=== PATIENT | female | born 1945 | race Caucasian/White ===

== ENCOUNTER 2017-02-06 15:26 | Inpatient (IN) | payer MEDICARE ==
--- NOTE | 2017-02-06 16:55 | ER Document Report ---
ED General - General Chief Complaint: Weakness Stated Complaint: WEAKNESS Mode of Arrival: Ambulatory Information source: Patient Notes: 71-year-old female presents with complaints of one week duration of productive cough shortness of breath. Patient denies any fevers or chills admits thick brownish sputum. Patient also noted to have urinary incontinence for the past week. Patient admits to shortness breath - HPI Onset: Last week Onset/Duration: Persistent Quality of pain: No pain Severity: Mild Pain Level: Denies Associated symptoms: Productive cough, Shortness of breath Exacerbated by: Denies Relieved by: Denies Similar symptoms previously: No Recently seen / treated by doctor: No - Related Data Allergies/Adverse Reactions: aspirin [Aspirin] Allergy (Verified 04/27/14 15:52) diphenhydramine HCl [From Benadryl] Allergy (Verified 04/27/14 15:52) ibuprofen [Ibuprofen] Allergy (Verified 04/27/14 15:52) Past Medical History - Social History Smoking Status: Never Smoker Cigarette use (# per day): No Chew tobacco use (# tins/day): No Smoking Education Provided: No Family History: Reviewed & Not Pertinent - Past Medical History Cardiac Medical History: Reports: Hx Heart Attack, Hx Hypercholesterolemia, Hx Hypertension Denies: Hx Heart Murmur Pulmonary Medical History: Reports: Hx Asthma, Hx COPD, Hx Pneumonia Denies: Hx Respiratory Failure, Hx Sleep Apnea, Hx Tuberculosis Malignancy Medical History: Denies: Hx Lung Cancer Psychiatric Medical History: Reports: Hx Depression, Hx Schizophrenia Past Surgical History: Reports: Hx Cardiac Catheterization - Stent x2. Denies: Hx Pacemaker - Immunizations Hx Diphtheria, Pertussis, Tetanus Vaccination: No Hx Pneumococcal Vaccination: 08/06/13 Review of Systems - Review of Systems Notes: ALL OTHER SYSTEMS REVIEWED AND NEGATIVE. Dictation was performed using [employer] voice recognition software PHYSICAL EXAMINATION: GENERAL: Well-appearing, well-nourished and in no acute distress. HEAD: Atraumatic, normocephalic. EYES: Pupils equal round and reactive to light, extraocular movements intact, conjunctiva are normal. ENT: Nares patent, oropharynx clear without exudates. Moist mucous membranes. NECK: Normal range of motion, supple without lymphadenopathy LUNGS: Rhonchorous breath sounds all throughout no respiratory distress patient is on 2 L nasal cannula HEART: Regular rate and rhythm without murmurs ABDOMEN: Soft, nontender, nondistended abdomen. No guarding, no rebound. No masses appreciated. Female : deferred Musculoskeletal: Normal range of motion, no pitting or edema. No cyanosis. NEUROLOGICAL: Cranial nerves grossly intact. Normal speech, normal gait. Normal sensory, motor exams PSYCH: Normal mood, normal affect. SKIN: Warm, Dry, normal turgor, no rashes or lesions noted. Physical Exam - Vital signs Vitals: Temp Pulse Resp BP Pulse Ox 97.7 F 94 20 107/50 L 94 02/06/17 15:47 02/06/17 15:47 02/06/17 15:47 02/06/17 15:47 02/06/17 15:47 Course - Re-evaluation Re-evalutation: 02/06/17 17:01 Patient has obvious pneumonia given productive cough. She was on antibiotics lab work imaging are pending at this time. Patient admission will depend on ambulation 02/06/17 18:03 Patient ambulated just to the bathroom satting 87%, I would admit her to hospital service for IV antibiotics and oxygenation - Vital Signs Vital signs: Temp Pulse Resp BP Pulse Ox 97.7 F 94 20 107/50 L 94 02/06/17 15:47 02/06/17 15:47 02/06/17 15:47 02/06/17 15:47 02/06/17 15:47 - Laboratory Result Diagrams: 02/06/17 16:40 02/06/17 16:40 Laboratory results interpreted by me: 02/06/17 02/06/17 02/06/17 16:40 16:40 16:40 Seg Neutrophils % 80.1 H Lymphocytes % 9.8 L Sodium 135.7 L Carbon Dioxide 21 L BUN 21 H Creatinine 1.39 H Est GFR ( Amer) 45 L Est GFR (Non-Af Amer) 37 L Glucose 134 H Calcium 10.5 H Creatine Kinase 315 H NT-Pro-B Natriuret Pep 930 H - Diagnostic Test Radiology reviewed: Image reviewed, Reports reviewed - EKG Interpretation by Me EKG shows normal: Sinus rhythm, Closplint, Intervals, QRS Complexes Critical Care Note - Critical Care Note Total time excluding time spent on procedures (mins): 34 Comments: 34 minutes of critical care time spent in direct contact evaluating and reevaluating the patient, treating symptoms, reviewing labs and studies and speaking with family and consultants excluding any procedures Discharge - Discharge Clinical Impression: Hypoxemia, Weakness Pneumonia Qualifiers: Pneumonia type: due to unspecified organism Laterality: right Lung location: upper lobe of lung Qualified Code(s): J18.1 - Lobar pneumonia, unspecified organism Condition: Fair Disposition: ADMITTED INPATIENT Admitting Provider: Hospitalist Unit Admitted: Telemetry
[2017-02-06 17:10] LABS: BASOPHILS % (AUTO) 0.3 % (0-2); HEMATOCRIT 39.5 % (36.0-47.0); HEMOGLOBIN 13.3 g/dL (12.0-15.5); HGB HCT DIFFERENCE 0.4; LYMPHOCYTES % (AUTO) 9.8 % (13-45); MEAN CORPUSCULAR HEMOGLOBIN 29.5 pg (27.0-33.4); MEAN CORPUSCULAR HGB CONC 33.6 g/dL (32.0-36.0); MEAN CORPUSCULAR VOLUME 88 fl (80-97); MONOCYTES % (AUTO) 9.8 % (3-13); RED CELL DISTRIBUTION WIDTH 13.9 % (11.5-14.0); SEGMENTED NEUTROPHILS % (AUTO) 80.1 % (42-78)
--- NOTE | 2017-02-06 17:20 | EKG REPORT ---
SEVERITY:- ABNORMAL ECG - SINUS RHYTHM LEFT ANTERIOR FASCICULAR BLOCK BORDERLINE T ABNORMALITIES, ANT-LAT LEADS : Confirmed by: Jacqui Ji MD 06-Feb-2017 17:19:44
[2017-02-06 17:27] LABS: ALANINE AMINOTRANSFERASE 32 U/L (9-52); ALBUMIN 4.1 g/dL (3.5-5.0); ALKALINE PHOSPHATASE 85 U/L (38-126); ANION GAP 13 (5-19); ASPARTATE AMINO TRANSFERASE 32 U/L (14-36); BILIRUBIN,TOTAL 0.6 mg/dL (0.2-1.3); BLOOD UREA NITROGEN 21 mg/dL (7-20); CALCIUM 10.5 mg/dL (8.4-10.2); CARBON DIOXIDE 21 mmol/L (22-30); CHLORIDE 102 mmol/L (98-107); CREATINE KINASE 315 U/L (30-135); CREATININE RESULT 1.39 mg/dL (0.52-1.25); GLUCOSE 134 mg/dL (75-110); POTASSIUM 3.9 mmol/L (3.6-5.0); SODIUM 135.7 mmol/L (137-145); TOTAL PROTEIN 6.9 g/dL (6.3-8.2)
[2017-02-06 17:39] LABS: CREATINE KINASE MB 0.97 ng/mL (<4.55)
[2017-02-06 17:40] LABS: TROPONIN I < 0.012 ng/mL
[2017-02-06] MEDS ORDERED: LEVOFLOXACIN 750 MG/D5W RTU 150 ML IV ONE (18:02)
[2017-02-06] MEDS ORDERED: NORMAL SALINE 1000 ML 1,000 ML IV PRN (19:11)
--- NOTE | 2017-02-06 19:25 | PDOC H&P ---
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 Was brought to the ED with increasing cough shortness of breath Upon evaluation in the ED she was found to be hypoxemic She was coughing sputum greenish thick She was subsequently admitted under hospitalist service with a diagnosis of pneumonia Past Medical History Cardiac Medical History: Reports: Myocardial Infarction, Hyperlipidema, Hypertension, Other - Chronic systolic CHF with an EF of 30% Denies: Heart Murmur Pulmonary Medical History: Reports: Asthma, Chronic Obstructive Pulmonary Disease (COPD), Pneumonia Denies: Respiratory Failure, Sleep Apnea, Tuberculosis Malignancy Medical History: Denies: Lung Cancer Psychiatric Medical History: Reports: Depression Past Surgical History Past Surgical History: Reports: Cardiac Catheterization - Stent x2 Denies: Pacemaker Social History Smoking Status: Never Smoker Frequency of Alcohol Use: None Hx Recreational Drug Use: No Hx Prescription Drug Abuse: No - Advance Directive Resuscitation Status: Full Code Surrogate healthcare decision maker:: Her daughter Carolann Family History Family History: Reviewed & Not Pertinent Parental Family History Reviewed: Yes - mother had CVA hypertension Children Family History Reviewed: Yes Sibling(s) Family History Reviewed.: Yes Medication/Allergy Home Medications: Albuterol Sulfate [Albuterol Sulfate 2.5mg/3 mL] 1 vial IH Q4HP PRN 02/06/17 Albuterol Sulfate [Ventolin Hfa] 2 puff IH Q4HP PRN 02/06/17 Aspirin [Aspirin 81 mg Chewable Tablet] 81 mg PO DAILY 02/06/17 Citalopram Hydrobromide [Celexa 10 mg Tablet] 10 mg PO DAILY 02/06/17 Lisinopril/Hydrochlorothiazide [Lisinopril-Hctz 20-12.5 mg Tab] 1 each PO DAILY 02/06/17 Potassium Chloride [K-Tab ER] 8 meq PO DAILY 02/06/17 Pravastatin Sodium [Pravachol] 20 mg PO QHS 02/06/17 Ranitidine HCl [Zantac] 150 mg PO DAILY 02/06/17 Tiotropium [place] [Spiriva Handihaler 5 Cap/Kit (18 Mcg/Cap)] 1 cap IH DAILY Allergies/Adverse Reactions: aspirin [Aspirin] Allergy (Verified 04/27/14 15:52) diphenhydramine HCl [From Benadryl] Allergy (Verified 04/27/14 15:52) ibuprofen [Ibuprofen] Allergy (Verified 04/27/14 15:52) Review of Systems Constitutional: ABSENT: chills, fever(s), headache(s), weight gain, weight loss Eyes: ABSENT: visual disturbances Ears: ABSENT: hearing changes Cardiovascular: PRESENT: chest pain - Stating her left breast hurts. ABSENT: dyspnea on exertion, edema, orthropnea, palpitations Respiratory: PRESENT: cough, dyspnea, sputum. ABSENT: hemoptysis Gastrointestinal: ABSENT: abdominal pain, constipation, diarrhea, hematemesis, hematochezia, nausea, vomiting Genitourinary: ABSENT: dysuria, hematuria Musculoskeletal: ABSENT: joint swelling Integumentary: ABSENT: rash, wounds Neurological: PRESENT: abnormal gait, weakness, other - Unsteady gait. ABSENT: abnormal speech, confusion, dizziness, focal weakness, syncope Psychiatric: ABSENT: anxiety, depression, homidical ideation, suicidal ideation Endocrine: ABSENT: cold intolerance, heat intolerance, polydipsia, polyuria Hematologic/Lymphatic: ABSENT: easy bleeding, easy bruising Physical Exam Vital Signs: Temp Pulse Resp BP Pulse Ox 97.7 F 94 20 107/50 L 94 02/06/17 15:47 02/06/17 15:47 02/06/17 15:47 02/06/17 15:47 02/06/17 15:47 General appearance: PRESENT: no acute distress, well-developed, well-nourished Head exam: PRESENT: atraumatic, normocephalic Eye exam: PRESENT: conjunctiva pink, EOMI, PERRLA. ABSENT: scleral icterus Ear exam: PRESENT: normal external ear exam Mouth exam: PRESENT: moist, tongue midline Neck exam: ABSENT: carotid bruit, JVD, lymphadenopathy, thyromegaly Respiratory exam: PRESENT: wheezes. ABSENT: rales, rhonchi, tachypnea Cardiovascular exam: PRESENT: RRR. ABSENT: diastolic murmur, rubs, systolic murmur Pulses: PRESENT: normal dorsalis pedis pul Vascular exam: PRESENT: normal capillary refill GI/Abdominal exam: PRESENT: normal bowel sounds, soft. ABSENT: distended, guarding, mass, organolmegaly, rebound, tenderness Rectal exam: PRESENT: deferred Extremities exam: PRESENT: full ROM. ABSENT: calf tenderness, clubbing, pedal edema Neurological exam: PRESENT: alert, awake, oriented to person, oriented to place , oriented to time, oriented to situation, CN II-XII grossly intact. ABSENT: motor sensory deficit Psychiatric exam: PRESENT: appropriate affect, normal mood. ABSENT: homicidal ideation, suicidal ideation Skin exam: PRESENT: dry, intact, warm. ABSENT: cyanosis, rash Results Laboratory Results: Labs- All tests 24 hr 02/06/17 02/06/17 02/06/17 16:40 16:40 16:40 WBC 10.0 RBC 4.50 Hgb 13.3 Hct 39.5 MCV 88 MCH 29.5 MCHC 33.6 RDW 13.9 Plt Count 189 Seg Neutrophils % 80.1 H Lymphocytes % 9.8 L Monocytes % 9.8 Eosinophils % 0.0 Basophils % 0.3 Absolute Neutrophils 8.0 Absolute Lymphocytes 1.0 Absolute Monocytes 1.0 Absolute Eosinophils 0.0 Absolute Basophils 0.0 Sodium 135.7 L Potassium 3.9 Chloride 102 Carbon Dioxide 21 L Anion Gap 13 BUN 21 H Creatinine 1.39 H Est GFR ( Amer) 45 L Est GFR (Non-Af Amer) 37 L Glucose 134 H Calcium 10.5 H Total Bilirubin 0.6 Direct Bilirubin 0.0 AST 32 ALT 32 Alkaline Phosphatase 85 Creatine Kinase 315 H CK-MB (CK-2) 0.97 Troponin I < 0.012 NT-Pro-B Natriuret Pep 930 H Total Protein 6.9 Albumin 4.1 Impressions: Chest X-Ray 02/06/17 15:58 IMPRESSION: NO ACUTE RADIOGRAPHIC FINDING IN THE CHEST. Assessment & Plan - Diagnosis (2) Coronary artery disease Qualifiers: Coronary Disease-Associated Artery/Lesion type: [place] artery Associated angina: angina presence unspecified Is this a current diagnosis for this admission?: Yes (3) Hypoxemia Is this a current diagnosis for this admission?: Yes (4) Pneumonia Qualifiers: Pneumonia type: due to unspecified organism Laterality: right Lung location: upper lobe of lung Qualified Code(s): J18.1 - Lobar pneumonia, unspecified organism Is this a current diagnosis for this admission?: Yes (5) CKD (chronic kidney disease), stage III Is this a current diagnosis for this admission?: YesPlan: Hydrate gently at 50 mL/h - Time Time Spent with patient: We will treat the patient has pneumonitis with Levaquin Patient has a high BNP that she has chronic systolic CHF Baseline BNP was 700 It is now 900 We will hydrate patient gently A lung scan ventilation perfusion would be performed tonight to exclude pulmonary emboli PT evaluation will be ordered in a.m. as the patient has been unstable and sustained many falls Time Spent: 50 to 70 Minutes - Inpatient Certification Based on my medical assessment, after consideration of the patient's comorbidities, presenting symptoms, or acuity I expect that the services needed warrant INPATIENT care.: Yes I certify that my determination is in accordance with my understanding of Medicare's requirements for reasonable and necessary INPATIENT services [42 CFR 412.3e].: Yes Medical Necessity: Need Close Monitoring Due to Risk of Patient Decompensation, Need For Continuous Telemetry Monitoring, Need for IV Antibiotics
[2017-02-07] MEDS: IPRATROPIUM/ALBUTEROL 0.5-2.5 MG/3 ML AMPUL NEB PRN ×2 (00:44→15:53)
[2017-02-07] MEDS: ACETAMINOPHEN 325 MG TABLET PO PRN ×2 (01:13→21:02)
[2017-02-07] MEDS ORDERED: ONDANSETRON HCL INJ/PF 4 MG/2 ML SDV IV PRN (02:10)
[2017-02-07] MEDS ORDERED: ONDANSETRON HCL INJ/PF 4 MG/2 ML SDV ONE (02:13)
[2017-02-07 07:49] LABS: ALANINE AMINOTRANSFERASE 34 U/L (9-52); ALBUMIN 3.6 g/dL (3.5-5.0); ALKALINE PHOSPHATASE 79 U/L (38-126); ANION GAP 13 (5-19); ASPARTATE AMINO TRANSFERASE 42 U/L (14-36); BILIRUBIN,TOTAL 0.5 mg/dL (0.2-1.3); BLOOD UREA NITROGEN 28 mg/dL (7-20); CALCIUM 10.2 mg/dL (8.4-10.2); CARBON DIOXIDE 22 mmol/L (22-30); CHLORIDE 103 mmol/L (98-107); CREATININE RESULT 1.89 mg/dL (0.52-1.25); GLUCOSE 94 mg/dL (75-110); SODIUM 137.7 mmol/L (137-145); TOTAL PROTEIN 6.4 g/dL (6.3-8.2)
[2017-02-07 08:02] LABS: TROPONIN I < 0.012 ng/mL
[2017-02-07] MEDS: ENOXAPARIN SODIUM INJ 30 MG/0.3 ML DISP.SYRIN SUBCUT SCH (09:22)
[2017-02-07] MEDS ORDERED: NORMAL SALINE 1000 ML 1,000 ML IV PRN (12:52)
[2017-02-07] MEDS ORDERED: GUAIFENESIN 600 MG TABLET.SA PO ONE (17:00)
[2017-02-07] MEDS ORDERED: AMLODIPINE BESYLATE 5 MG TABLET PO ONE (17:00)
--- NOTE | 2017-02-07 18:41 | PDOC PROGRESS REPORT ---
Subjective Progress Note for:: 02/07/17 Subjective:: She's feeling better Her lung scan ventilation perfusion performed yesterday was negative for PE She is starting to cough up purulent secretions Physical Exam Vital Signs: Temp Pulse Resp BP Pulse Ox 99.2 F 79 20 142/63 H 96 02/07/17 14:48 02/07/17 15:53 02/07/17 15:53 02/07/17 14:48 02/07/17 15:53 Intake & Output 02/06/17 02/07/17 02/08/17 00:59 00:59 00:59 Weight 73.1 kg General appearance: PRESENT: no acute distress Head exam: PRESENT: atraumatic, normocephalic Eye exam: PRESENT: conjunctiva pink, EOMI, PERRLA. ABSENT: scleral icterus Neck exam: ABSENT: carotid bruit, JVD, lymphadenopathy, thyromegaly Respiratory exam: PRESENT: decreased breath sounds, wheezes Cardiovascular exam: PRESENT: RRR. ABSENT: diastolic murmur, rubs, systolic murmur Pulses: PRESENT: normal dorsalis pedis pul GI/Abdominal exam: PRESENT: normal bowel sounds, soft. ABSENT: distended, guarding, mass, organolmegaly, rebound, tenderness Neurological exam: PRESENT: alert, awake, CN II-XII grossly intact. ABSENT: motor sensory deficit Results Laboratory Results: 02/07/17 07:13 02/07/17 02/07/17 02/07/17 07:13 07:13 09:30 Sodium 137.7 Potassium 4.0 Chloride 103 Carbon Dioxide 22 Anion Gap 13 BUN 28 H Creatinine 1.89 H Est GFR ( Amer) 32 L Est GFR (Non-Af Amer) 26 L Glucose 94 Calcium 10.2 Total Bilirubin 0.5 AST 42 H ALT 34 Alkaline Phosphatase 79 Total Protein 6.4 Albumin 3.6 TSH 1.98 Urine Color Cancelled Urine Appearance Cancelled Urine pH Cancelled Ur Specific [place] Cancelled Urine Protein Cancelled Urine Glucose (UA) Cancelled Urine Ketones Cancelled Urine Blood Cancelled Urine Nitrite Cancelled Ur Leukocyte Esterase Cancelled Urine WBC (Auto) Cancelled Urine RBC (Auto) Cancelled 02/06/17 02/07/17 23:12 07:13 Troponin I < 0.012 < 0.012 NT-Pro-B Natriuret Pep 553 Impressions: Chest X-Ray 02/06/17 15:58 IMPRESSION: NO ACUTE RADIOGRAPHIC FINDING IN THE CHEST. Lung Scan-VQ NM 02/06/17 19:15 IMPRESSION: HETEROGENOUS ACTIVITY MOST CONSISTENT WITH UNDERLYING LUNG DISEASE. MATCHED VENTILATION-PERFUSION DEFECTS. NO MISMATCH DEFECTS. LOW PROBABILITY OF PULMONARY EMBOLISM. Assessment & Plan - Diagnosis (2) Coronary artery disease Qualifiers: Coronary Disease-Associated Artery/Lesion type: [place] artery Associated angina: angina presence unspecified Is this a current diagnosis for this admission?: Yes (3) Hypoxemia Is this a current diagnosis for this admission?: Yes (4) Pneumonia Qualifiers: Pneumonia type: due to unspecified organism Laterality: right Lung location: upper lobe of lung Qualified Code(s): J18.1 - Lobar pneumonia, unspecified organism Is this a current diagnosis for this admission?: Yes (5) CKD (chronic kidney disease), stage III Is this a current diagnosis for this admission?: YesPlan: Renal function is worsening We will increase IV fluids Repeat BMP in a.m. Craig catheter was inserted as the patient is incontinent.
[2017-02-07] MEDS ORDERED: INFLUENZA ADLT QUAD (36MOS+) 2016-17 VAC 0.5 ML SYR IM PRN (18:49)
[2017-02-07] MEDS: IPRATROPIUM/ALBUTEROL 0.5-2.5 MG/3 ML AMPUL NEB SCH (20:37)
[2017-02-07] MEDS ORDERED: DILTIAZEM HCL 60 MG TABLET PO ONE (21:01)
[2017-02-07] MEDS ORDERED: DILTIAZEM HCL 60 MG TABLET ONE (21:18)
[2017-02-07 21:44] LABS: HEMATOCRIT 34.9 % (36.0-47.0); HEMOGLOBIN 11.8 g/dL (12.0-15.5); HGB HCT DIFFERENCE 0.5; MEAN CORPUSCULAR HEMOGLOBIN 29.5 pg (27.0-33.4); MEAN CORPUSCULAR HGB CONC 33.7 g/dL (32.0-36.0); MEAN CORPUSCULAR VOLUME 87 fl (80-97); RED CELL DISTRIBUTION WIDTH 13.7 % (11.5-14.0)
[2017-02-07] MEDS: ATORVASTATIN CALCIUM 10 MG TABLET PO SCH (22:31)
[2017-02-07 22:40] LABS: BAND NEUTROPHILS % (MANUAL) 2 % (3-5); BASOPHILS % (MANUAL) 0 % (0-2); EOSINOPHILS % (MANUAL) 1 % (0-6); LYMPHOCYTES % (MANUAL) 20 % (13-45); TOTAL CELLS COUNTED 100
[2017-02-07 22:41] LABS: TOXIC GRANULATION SLIGHT
[2017-02-08] MEDS: DILTIAZEM HCL 30 MG TABLET PO SCH ×4 (05:01→23:25)
[2017-02-08] MEDS: IPRATROPIUM/ALBUTEROL 0.5-2.5 MG/3 ML AMPUL NEB PRN ×2 (05:15→22:55)
[2017-02-08 05:29] LABS: ANION GAP 9 (5-19); BLOOD UREA NITROGEN 29 mg/dL (7-20); CALCIUM 9.9 mg/dL (8.4-10.2); CARBON DIOXIDE 22 mmol/L (22-30); CHLORIDE 107 mmol/L (98-107); CREATININE RESULT 1.47 mg/dL (0.52-1.25); GLUCOSE 109 mg/dL (75-110); POTASSIUM 4.1 mmol/L (3.6-5.0); SODIUM 138.2 mmol/L (137-145)
[2017-02-08] MEDS: IPRATROPIUM/ALBUTEROL 0.5-2.5 MG/3 ML AMPUL NEB SCH ×3 (08:51→20:37)
[2017-02-08] MEDS: CITALOPRAM HYDROBROMIDE 20 MG TABLET PO SCH (09:29)
[2017-02-08] MEDS: GUAIFENESIN 600 MG TABLET.SA PO SCH ×2 (09:30→23:25)
[2017-02-08] MEDS: FAMOTIDINE 20 MG TABLET PO SCH (09:30)
[2017-02-08] MEDS: TIOTROPIUM BROMIDE DPI 5 CAP/KIT (18 MCG/CAP) IH SCH (09:32)
[2017-02-08] MEDS: AMLODIPINE BESYLATE 5 MG TABLET PO SCH (09:33)
[2017-02-08] MEDS: ENOXAPARIN SODIUM INJ 30 MG/0.3 ML DISP.SYRIN SUBCUT SCH (09:33)
[2017-02-08] MEDS: ASPIRIN 81 MG TABLET, CHEWABLE PO SCH (09:33)
[2017-02-08] MEDS ORDERED: LEVOFLOXACIN 750 MG/D5W RTU 150 ML IV SCH (10:00)
[2017-02-08] MEDS ORDERED: (PENDING PHARMACY ID) (Ranitidine Hcl [Zantac 150 Mg Tablet] 150 MG) PO SCH (10:00)
[2017-02-08] MEDS ORDERED: (PENDING PHARMACY ID) (Citalopram Hydrobromide [Celexa 10 Mg Tablet] 10 MG) PO SCH (10:00)
--- NOTE | 2017-02-08 11:18 | EKG REPORT ---
SEVERITY:- BORDERLINE ECG - SINUS RHYTHM BORDERLINE T ABNORMALITIES, ANT-LAT LEADS : Confirmed by: Bella Gasca 08-Feb-2017 11:17:56
--- NOTE | 2017-02-08 16:05 | PDOC PROGRESS REPORT ---
Subjective Progress Note for:: 02/08/17 Subjective:: Patient is doing well respiratory status has improved She is in atrial fibrillation at times with rapid ventricular rate The atenolol had had been held as she was hypotensive She was given IV fluids We have continued IV fluids at 75 mL per hour, and Cardizem was initiated 30 mg by mouth every 6 hours We will add atenolol 25 mg daily Spoke at length with family, and feels that it would be best for Loren to be discharged to short-term rehabilitation PT evaluation and discharge planning consultation were ordered Physical Exam Vital Signs: Temp Pulse Resp BP Pulse Ox 98.0 F 96 18 114/53 L 93 02/08/17 11:34 02/08/17 13:58 02/08/17 13:58 02/08/17 11:34 02/08/17 13:58 Intake & Output 02/07/17 02/08/17 02/09/17 00:59 00:59 00:59 Intake Total 240 1884 Output Total 600 Balance 240 1284 Weight 73.1 kg 69.3 kg General appearance: PRESENT: no acute distress Head exam: PRESENT: atraumatic, normocephalic Eye exam: PRESENT: conjunctiva pink, EOMI, PERRLA. ABSENT: scleral icterus Respiratory exam: PRESENT: decreased breath sounds, wheezes Cardiovascular exam: PRESENT: irregular rhythm Rectal exam: PRESENT: deferred Extremities exam: PRESENT: full ROM. ABSENT: calf tenderness, clubbing, pedal edema Neurological exam: PRESENT: alert, awake, oriented to person, oriented to place , oriented to time, oriented to situation, CN II-XII grossly intact. ABSENT: motor sensory deficit Results Laboratory Results: 02/07/17 21:25 02/08/17 04:30 02/07/17 02/08/17 21:25 04:30 WBC 6.0 RBC 4.00 Hgb 11.8 L Hct 34.9 L MCV 87 MCH 29.5 MCHC 33.7 RDW 13.7 Plt Count 156 Seg Neutrophils % Not Reportable Lymphocytes % Not Reportable Monocytes % Not Reportable Eosinophils % Not Reportable Basophils % Not Reportable Absolute Neutrophils Not Reportable Absolute Lymphocytes Not Reportable Absolute Monocytes Not Reportable Absolute Eosinophils Not Reportable Absolute Basophils Not Reportable Sodium 138.2 Potassium 4.1 Chloride 107 Carbon Dioxide 22 Anion Gap 9 BUN 29 H Creatinine 1.47 H Est GFR ( Amer) 42 L Est GFR (Non-Af Amer) 35 L Glucose 109 Calcium 9.9 02/06/17 02/07/17 23:12 07:13 Troponin I < 0.012 < 0.012 NT-Pro-B Natriuret Pep 553 Impressions: Chest X-Ray 02/06/17 15:58 IMPRESSION: NO ACUTE RADIOGRAPHIC FINDING IN THE CHEST. Lung Scan-VQ NM 02/06/17 19:15 IMPRESSION: HETEROGENOUS ACTIVITY MOST CONSISTENT WITH UNDERLYING LUNG DISEASE. MATCHED VENTILATION-PERFUSION DEFECTS. NO MISMATCH DEFECTS. LOW PROBABILITY OF PULMONARY EMBOLISM. Assessment & Plan - Diagnosis (2) Coronary artery disease Qualifiers: Coronary Disease-Associated Artery/Lesion type: [place] artery Associated angina: angina presence unspecified Is this a current diagnosis for this admission?: Yes (3) Hypoxemia Is this a current diagnosis for this admission?: Yes (4) Pneumonia Qualifiers: Pneumonia type: due to unspecified organism Laterality: right Lung location: upper lobe of lung Qualified Code(s): J18.1 - Lobar pneumonia, unspecified organism Is this a current diagnosis for this admission?: Yes (5) CKD (chronic kidney disease), stage III Is this a current diagnosis for this admission?: Yes (6) Chronic atrial fibrillation Is this a current diagnosis for this admission?: YesPlan: Continue Cardizem and atenolol Patient is not anticoagulated - Time Time Spent with patient: 25-34 minutes
[2017-02-08] MEDS ORDERED: NORMAL SALINE 1000 ML 1,000 ML IV PRN (16:08)
[2017-02-08] MEDS: ACETAMINOPHEN 325 MG TABLET PO PRN (16:22)
[2017-02-08] MEDS ORDERED: BENZONATATE 100 MG CAPSULE PO ONE (16:30)
[2017-02-08] MEDS ORDERED: ATENOLOL 50 MG TABLET PO ONE (16:30)
[2017-02-08] MEDS: ATORVASTATIN CALCIUM 10 MG TABLET PO SCH (23:23)
[2017-02-08] MEDS: BENZONATATE 100 MG CAPSULE PO SCH (23:25)
[2017-02-08 23:37] LABS: APPEARANCE,URINE SLIGHTLY-CLOUDY; BILIRUBIN,URINE NEGATIVE (NEGATIVE); GLUCOSE, URINE NEGATIVE (NEGATIVE); KETONES,URINE NEGATIVE (NEGATIVE); LEUKOCYTE ESTERASE,URINE NEGATIVE (NEGATIVE); NITRITE,URINE NEGATIVE (NEGATIVE); PROTEIN,URINE 100 mg/dL (NEGATIVE); URINE SPECIFIC GRAVITY 1.023; UROBILINOGEN,URINE NEGATIVE mg/dL (<2.0)
[2017-02-09] MEDS: ACETAMINOPHEN 325 MG TABLET PO PRN ×3 (00:21→21:28)
[2017-02-09] MEDS: BENZONATATE 100 MG CAPSULE PO SCH ×3 (05:51→21:28)
[2017-02-09] MEDS: DILTIAZEM HCL 30 MG TABLET PO SCH ×4 (05:51→23:38)
[2017-02-09] MEDS: IPRATROPIUM/ALBUTEROL 0.5-2.5 MG/3 ML AMPUL NEB SCH ×3 (08:40→20:19)
[2017-02-09] MEDS: GUAIFENESIN 600 MG TABLET.SA PO SCH ×2 (11:13→21:28)
[2017-02-09] MEDS: AMLODIPINE BESYLATE 5 MG TABLET PO SCH (11:13)
[2017-02-09] MEDS: CITALOPRAM HYDROBROMIDE 20 MG TABLET PO SCH (11:14)
[2017-02-09] MEDS: FAMOTIDINE 20 MG TABLET PO SCH (11:14)
[2017-02-09] MEDS: ASPIRIN 81 MG TABLET, CHEWABLE PO SCH (11:14)
[2017-02-09] MEDS: ATENOLOL 50 MG TABLET PO SCH (11:14)
[2017-02-09] MEDS: ENOXAPARIN SODIUM INJ 30 MG/0.3 ML DISP.SYRIN SUBCUT SCH (11:15)
[2017-02-09] MEDS: TIOTROPIUM BROMIDE DPI 5 CAP/KIT (18 MCG/CAP) IH SCH (11:20)
--- NOTE | 2017-02-09 12:54 | PDOC PROGRESS REPORT ---
Subjective Progress Note for:: 02/09/17 Subjective:: feeling better still somewhat dyspneic lung scan was negative for PE Echocardiogram is pending dyspnea likely to be combined cardiac -pulmonary issues Physical Exam Vital Signs: Temp Pulse Resp BP Pulse Ox 98.1 F 75 22 H 107/79 92 02/09/17 07:41 02/09/17 08:40 02/09/17 08:40 02/09/17 07:41 02/09/17 08:40 Intake & Output 02/08/17 02/09/17 02/10/17 00:59 00:59 00:59 Intake Total 240 1884 1000 Output Total 600 300 Balance 240 1284 700 Weight 73.1 kg 69.3 kg 71.3 kg General appearance: PRESENT: no acute distress, well-nourished Head exam: PRESENT: atraumatic, normocephalic Eye exam: PRESENT: conjunctiva pink, EOMI, PERRLA. ABSENT: scleral icterus Neck exam: ABSENT: carotid bruit, JVD, lymphadenopathy, thyromegaly Respiratory exam: PRESENT: tachypnea, wheezes. ABSENT: rales, rhonchi Cardiovascular exam: PRESENT: RRR. ABSENT: diastolic murmur, rubs, systolic murmur Pulses: PRESENT: normal dorsalis pedis pul Vascular exam: PRESENT: normal capillary refill GI/Abdominal exam: PRESENT: normal bowel sounds, soft. ABSENT: distended, guarding, mass, organolmegaly, rebound, tenderness Neurological exam: PRESENT: awake, CN II-XII grossly intact Results Laboratory Results: 02/07/17 21:25 02/08/17 04:30 02/08/17 23:00 Urine Color YELLOW Urine Appearance SLIGHTLY-CLOUDY Urine pH 5.0 Ur Specific [place] 1.023 Urine Protein 100 H Urine Glucose (UA) NEGATIVE Urine Ketones NEGATIVE Urine Blood MODERATE H Urine Nitrite NEGATIVE Ur Leukocyte Esterase NEGATIVE Urine WBC (Auto) 8 Urine RBC (Auto) 67 02/07/17 06:00 Sputum Gram Stain - Final 02/07/17 06:00 Sputum Sputum Culture - Final NORMAL JEFRY 02/06/17 02/07/17 23:12 07:13 Troponin I < 0.012 < 0.012 NT-Pro-B Natriuret Pep 553 Impressions: Chest X-Ray 02/06/17 15:58 IMPRESSION: NO ACUTE RADIOGRAPHIC FINDING IN THE CHEST. Lung Scan-VQ [place] 02/06/17 19:15 IMPRESSION: HETEROGENOUS ACTIVITY MOST CONSISTENT WITH UNDERLYING LUNG DISEASE. MATCHED VENTILATION-PERFUSION DEFECTS. NO MISMATCH DEFECTS. LOW PROBABILITY OF PULMONARY EMBOLISM. Assessment & Plan - Diagnosis (2) Coronary artery disease Qualifiers: Coronary Disease-Associated Artery/Lesion type: [place] artery Associated angina: angina presence unspecified Is this a current diagnosis for this admission?: Yes (3) Hypoxemia Is this a current diagnosis for this admission?: Yes (4) Pneumonia Qualifiers: Pneumonia type: due to unspecified organism Laterality: right Lung location: upper lobe of lung Qualified Code(s): J18.1 - Lobar pneumonia, unspecified organism Is this a current diagnosis for this admission?: Yes (5) CKD (chronic kidney disease), stage III Is this a current diagnosis for this admission?: Yes (6) Chronic atrial fibrillation Is this a current diagnosis for this admission?: Yes - Time Time Spent with patient: continue present mangement awaiting report echo renal function stable- slightly improved d/c on sun home with services or to SNF facility PT evaluaton pending
--- NOTE | 2017-02-09 13:05 | XCELERA REPORT ---
[address] [address] Transthoracic Echocardiogram Report Name: SACHIN GEIGER Age: 71 yrs Gender: Female : 1945 Patient Status: Inpatient Patient Location: [id number]\S\427\S\A Study Date: 02/09/2017 09:54 AM Height: 57 in Weight: 152 lb BSA: 1.6 m2 Procedure: A complete two-dimensional transthoracic echocardiogram was performed (2D, M-mode, spectral and color flow Doppler). The study was technically difficult with many images being suboptimal in quality. Reason For Study: SOB Ordering Physician: MILO LO Performed By: Maritza Evangelista Interpretation Summary The left ventricular ejection fraction is normal. There is borderline concentric left ventricular hypertrophy. The left ventricle is grossly normal size. Doppler measurements suggest impaired left ventricular relaxation, which is associated with grade I/IV or mild diastolic dysfunction Wall motion cannot be accurately commented on, but no definite regional wall motion abnormalities noted. The right ventricular systolic function is normal. The left atrial size is normal. The right atrium is normal in size There is a trace amount of mitral regurgitation There is no mitral valve stenosis. No aortic regurgitation is present. There is no aortic valve stenosis There is a trace or physiologic amount of tricuspid regurgitation Tricuspid regurgitation jet envelope not well defined to measure RV systolic pressure accurately. The aortic root is not well visualized. The inferior vena cava was not well visualized Minimal pericardial effusion. MMode/2D Measurements \T\ Calculations RVDd: 2.2 cm LVIDd: 3.8 cm FS: 29.8 % Ao root diam: 2.5 cm IVSd: 0.93 cm LVIDs: 2.7 cm EDV(Teich): 62.6 ml LVPWd: 0.85 cm ESV(Teich): 26.5 ml Ao root area: 4.7 cm2 EF(Teich): 57.7 % LA dimension: 2.9 cm Doppler Measurements \T\ Calculations MV E max linda: MV P1/2t max linda: Ao V2 max: LV V1 max P.5 cm/sec 81.4 cm/sec 110.8 cm/sec 3.0 mmHg MV A max linda: MV P1/2t: 56.7 msec Ao max PG: LV V1 max: 86.4 cm/sec 4.9 mmHg 86.9 cm/sec MV E/A: 0.93 MVA(P1/2t): 3.9 cm2 MV dec slope: 420.5 cm/sec2 MV dec time: 0.19 sec PA V2 max: 111.6 cm/sec PA max P.0 mmHg Left Ventricle The left ventricle is grossly normal size. There is borderline concentric left ventricular hypertrophy. The left ventricular ejection fraction is normal. Doppler measurements suggest impaired left ventricular relaxation, which is associated with grade I/IV or mild diastolic dysfunction. Wall motion cannot be accurately commented on, but no definite regional wall motion abnormalities noted. Right Ventricle The right ventricle is grossly normal size. There is normal right ventricular wall thickness. The right ventricular systolic function is normal. Atria The right atrium is normal in size. The left atrial size is normal. Interarterial septum not well visualized and not well dopplered. Cannot comment on ASD/PFO presence. Mitral Valve The mitral valve is grossly normal. There is no mitral valve stenosis. There is a trace amount of mitral regurgitation. Aortic Valve The aortic valve is grossly normal. There is no aortic valve stenosis. No aortic regurgitation is present. Tricuspid Valve The tricuspid valve is not well visualized, but is grossly normal. There is no tricuspid stenosis. There is a trace or physiologic amount of tricuspid regurgitation. Tricuspid regurgitation jet envelope not well defined to measure RV systolic pressure accurately. Pulmonic Valve The pulmonic valve is not well visualized. Great Vessels The aortic root is not well visualized. The inferior vena cava was not well visualized. Effusions Minimal pericardial effusion. : MILO LO > Bella Gasca
[2017-02-09] MEDS: ATORVASTATIN CALCIUM 10 MG TABLET PO SCH (21:28)
[2017-02-10] MEDS: DILTIAZEM HCL 30 MG TABLET PO SCH ×4 (05:23→23:00)
[2017-02-10] MEDS: BENZONATATE 100 MG CAPSULE PO SCH ×3 (05:23→22:56)
[2017-02-10 06:28] LABS: ANION GAP 9 (5-19); BLOOD UREA NITROGEN 17 mg/dL (7-20); CALCIUM 9.4 mg/dL (8.4-10.2); CARBON DIOXIDE 20 mmol/L (22-30); CHLORIDE 112 mmol/L (98-107); GLUCOSE 89 mg/dL (75-110); POTASSIUM 4.4 mmol/L (3.6-5.0); SODIUM 141.1 mmol/L (137-145)
[2017-02-10] MEDS: IPRATROPIUM/ALBUTEROL 0.5-2.5 MG/3 ML AMPUL NEB SCH ×3 (09:12→20:33)
[2017-02-10] MEDS: TIOTROPIUM BROMIDE DPI 5 CAP/KIT (18 MCG/CAP) IH SCH (10:43)
[2017-02-10] MEDS: AMLODIPINE BESYLATE 5 MG TABLET PO SCH (10:44)
[2017-02-10] MEDS: ASPIRIN 81 MG TABLET, CHEWABLE PO SCH (10:44)
[2017-02-10] MEDS: CITALOPRAM HYDROBROMIDE 20 MG TABLET PO SCH (10:44)
[2017-02-10] MEDS: GUAIFENESIN 600 MG TABLET.SA PO SCH ×2 (10:45→22:56)
[2017-02-10] MEDS: ATENOLOL 50 MG TABLET PO SCH (10:45)
[2017-02-10] MEDS: FAMOTIDINE 20 MG TABLET PO SCH (10:45)
[2017-02-10] MEDS: ENOXAPARIN SODIUM INJ 30 MG/0.3 ML DISP.SYRIN SUBCUT SCH (10:50)
[2017-02-10] MEDS: IPRATROPIUM/ALBUTEROL 0.5-2.5 MG/3 ML AMPUL NEB PRN (11:55)
--- NOTE | 2017-02-10 17:00 | PDOC PROGRESS REPORT ---
Subjective Progress Note for:: 02/10/17 Subjective:: Patient is feeling well no chest pain no shortness of breath alert and awake Patient did have owning yesterday and was extremely confused Again spoke with family wishes for her to go to to SNF facility at discharge Physical Exam Vital Signs: Temp Pulse Resp BP Pulse Ox 97.3 F 87 24 H 110/49 L 97 02/10/17 15:37 02/10/17 15:37 02/10/17 15:37 02/10/17 15:37 02/10/17 15:37 Intake & Output 02/09/17 02/10/17 02/11/17 00:59 00:59 00:59 Intake Total 1884 1400 1611 Output Total 600 650 600 Balance 4812 146 0590 Weight 69.3 kg 71.3 kg 74 kg General appearance: PRESENT: no acute distress, well-developed, well-nourished Head exam: PRESENT: atraumatic, normocephalic Eye exam: PRESENT: conjunctiva pink, EOMI, PERRLA. ABSENT: scleral icterus Ear exam: PRESENT: normal external ear exam Mouth exam: PRESENT: moist, tongue midline Neck exam: ABSENT: carotid bruit, JVD, lymphadenopathy, thyromegaly Respiratory exam: PRESENT: decreased breath sounds, wheezes. ABSENT: rales, rhonchi Cardiovascular exam: PRESENT: RRR. ABSENT: diastolic murmur, rubs, systolic murmur Pulses: PRESENT: normal dorsalis pedis pul Vascular exam: PRESENT: normal capillary refill GI/Abdominal exam: PRESENT: normal bowel sounds, soft. ABSENT: distended, guarding, mass, organolmegaly, rebound, tenderness Rectal exam: PRESENT: deferred Extremities exam: PRESENT: full ROM. ABSENT: calf tenderness, clubbing, pedal edema Neurological exam: PRESENT: alert, awake, CN II-XII grossly intact. ABSENT: motor sensory deficit Psychiatric exam: PRESENT: appropriate affect, normal mood Skin exam: PRESENT: dry, intact, warm. ABSENT: cyanosis, rash Results Laboratory Results: 02/07/17 21:25 02/10/17 05:20 02/10/17 05:20 Sodium 141.1 Potassium 4.4 Chloride 112 H Carbon Dioxide 20 L Anion Gap 9 BUN 17 Creatinine 0.90 Est GFR ( Amer) > 60 Est GFR (Non-Af Amer) > 60 Glucose 89 Calcium 9.4 02/06/17 02/07/17 23:12 07:13 Troponin I < 0.012 < 0.012 NT-Pro-B Natriuret Pep 553 Impressions: Chest X-Ray 02/06/17 15:58 IMPRESSION: NO ACUTE RADIOGRAPHIC FINDING IN THE CHEST. Lung Scan-VQ NM 02/06/17 19:15 IMPRESSION: HETEROGENOUS ACTIVITY MOST CONSISTENT WITH UNDERLYING LUNG DISEASE. MATCHED VENTILATION-PERFUSION DEFECTS. NO MISMATCH DEFECTS. LOW PROBABILITY OF PULMONARY EMBOLISM. Assessment & Plan - Diagnosis (2) Coronary artery disease Qualifiers: Coronary Disease-Associated Artery/Lesion type: [place] artery Associated angina: angina presence unspecified Is this a current diagnosis for this admission?: Yes (3) Hypoxemia Is this a current diagnosis for this admission?: Yes (4) Pneumonia Qualifiers: Pneumonia type: due to unspecified organism Laterality: right Lung location: upper lobe of lung Qualified Code(s): J18.1 - Lobar pneumonia, unspecified organism Is this a current diagnosis for this admission?: Yes (5) CKD (chronic kidney disease), stage III Is this a current diagnosis for this admission?: Yes (6) Chronic atrial fibrillation Is this a current diagnosis for this admission?: Yes (7) Delirium Is this a current diagnosis for this admission?: YesPlan: Patient likely has underlying dementia; we will give her small doses of Risperdal - Time Time Spent with patient: We will discontinue the Craig catheter Let her to use the bedside commode Patient has improved greatly We will keep the patient over the weekend; patient to be discharged to SNF facility when a bed is available Time Spent with patient: 15-24 minutes
[2017-02-10] MEDS: ACETAMINOPHEN 325 MG TABLET PO PRN (18:21)
[2017-02-10] MEDS ORDERED: RISPERIDONE 0.25 MG TABLET ONE (21:06)
[2017-02-10] MEDS: ATORVASTATIN CALCIUM 10 MG TABLET PO SCH (22:56)
[2017-02-10] MEDS: RISPERIDONE 0.25 MG TABLET PO SCH (22:56)
[2017-02-10] MEDS: BENZOCAINE/MENTHOL SORE THROAT LOZENGE BUCCAL PRN (23:31)
[2017-02-11] MEDS: ACETAMINOPHEN 325 MG TABLET PO PRN ×2 (00:45→22:03)
[2017-02-11] MEDS: DILTIAZEM HCL 30 MG TABLET PO SCH (06:03)
[2017-02-11] MEDS: BENZONATATE 100 MG CAPSULE PO SCH ×3 (06:13→22:03)
[2017-02-11] MEDS: ENOXAPARIN SODIUM INJ 30 MG/0.3 ML DISP.SYRIN SUBCUT SCH (07:40)
[2017-02-11] MEDS: IPRATROPIUM/ALBUTEROL 0.5-2.5 MG/3 ML AMPUL NEB SCH ×3 (09:14→20:19)
[2017-02-11] MEDS: RISPERIDONE 0.25 MG TABLET PO SCH ×2 (10:06→22:04)
[2017-02-11] MEDS: GUAIFENESIN 600 MG TABLET.SA PO SCH ×2 (10:07→22:03)
[2017-02-11] MEDS: LEVOFLOXACIN 750 MG TABLET PO SCH (10:07)
[2017-02-11] MEDS: CITALOPRAM HYDROBROMIDE 20 MG TABLET PO SCH (10:07)
[2017-02-11] MEDS: ATENOLOL 50 MG TABLET PO SCH (10:07)
[2017-02-11] MEDS: FAMOTIDINE 20 MG TABLET PO SCH (10:08)
[2017-02-11] MEDS: TIOTROPIUM BROMIDE DPI 5 CAP/KIT (18 MCG/CAP) IH SCH (10:08)
[2017-02-11] MEDS: ASPIRIN 81 MG TABLET, CHEWABLE PO SCH (10:08)
[2017-02-11] MEDS ORDERED: FUROSEMIDE INJ/PF 40 MG/4 ML SDV IV ONE (18:14)
[2017-02-11] MEDS: ATORVASTATIN CALCIUM 10 MG TABLET PO SCH (22:03)
[2017-02-12 00:23] LABS: HEMOGLOBIN 9.4 g/dL (12.0-15.5); HGB HCT DIFFERENCE 1.2; MEAN CORPUSCULAR HEMOGLOBIN 29.7 pg (27.0-33.4); MEAN CORPUSCULAR HGB CONC 34.7 g/dL (32.0-36.0); MEAN CORPUSCULAR VOLUME 86 fl (80-97); RED BLOOD COUNT 3.16 10^6/uL (3.72-5.28); RED CELL DISTRIBUTION WIDTH 13.9 % (11.5-14.0); WHITE BLOOD COUNT 8.9 10^3/uL (4.0-10.5)
[2017-02-12 01:44] LABS: ANION GAP 11 (5-19); BLOOD UREA NITROGEN 15 mg/dL (7-20); CALCIUM 9.6 mg/dL (8.4-10.2); CARBON DIOXIDE 24 mmol/L (22-30); CHLORIDE 105 mmol/L (98-107); CREATININE RESULT 1.14 mg/dL (0.52-1.25); GLUCOSE 117 mg/dL (75-110); POTASSIUM 3.7 mmol/L (3.6-5.0); SODIUM 139.6 mmol/L (137-145)
[2017-02-12 04:58] LABS: ABSOLUTE LYMPHOCYTES (AUTO) 1.2 10^3/uL (0.5-4.7); ABSOLUTE NEUT (AUTO) 6.2 10^3/uL (1.7-8.2); BASOPHILS % (AUTO) 0.2 % (0-2); HEMATOCRIT 25.7 % (36.0-47.0); HEMOGLOBIN 8.9 g/dL (12.0-15.5); LYMPHOCYTES % (AUTO) 13.8 % (13-45); MEAN CORPUSCULAR HEMOGLOBIN 29.4 pg (27.0-33.4); MEAN CORPUSCULAR HGB CONC 34.6 g/dL (32.0-36.0); MEAN CORPUSCULAR VOLUME 85 fl (80-97); MONOCYTES % (AUTO) 12.2 % (3-13); RED BLOOD COUNT 3.02 10^6/uL (3.72-5.28); RED CELL DISTRIBUTION WIDTH 13.5 % (11.5-14.0); SEGMENTED NEUTROPHILS % (AUTO) 73.8 % (42-78); WHITE BLOOD COUNT 8.3 10^3/uL (4.0-10.5)
[2017-02-12 05:19] LABS: ANION GAP 13 (5-19); BLOOD UREA NITROGEN 16 mg/dL (7-20); CALCIUM 9.5 mg/dL (8.4-10.2); CARBON DIOXIDE 23 mmol/L (22-30); CHLORIDE 103 mmol/L (98-107); GLUCOSE 114 mg/dL (75-110); POTASSIUM 3.6 mmol/L (3.6-5.0); SODIUM 138.8 mmol/L (137-145)
[2017-02-12] MEDS: BENZONATATE 100 MG CAPSULE PO SCH ×3 (05:21→21:22)
[2017-02-12] MEDS: ENOXAPARIN SODIUM INJ 30 MG/0.3 ML DISP.SYRIN SUBCUT SCH (07:26)
[2017-02-12] MEDS: IPRATROPIUM/ALBUTEROL 0.5-2.5 MG/3 ML AMPUL NEB SCH ×3 (08:03→20:15)
[2017-02-12] MEDS: GUAIFENESIN 600 MG TABLET.SA PO SCH ×2 (09:32→21:22)
[2017-02-12] MEDS: RISPERIDONE 0.25 MG TABLET PO SCH ×2 (09:32→21:21)
[2017-02-12] MEDS: FAMOTIDINE 20 MG TABLET PO SCH (09:32)
[2017-02-12] MEDS: ATENOLOL 50 MG TABLET PO SCH (09:32)
[2017-02-12] MEDS: ASPIRIN 81 MG TABLET, CHEWABLE PO SCH (09:32)
[2017-02-12] MEDS: TIOTROPIUM BROMIDE DPI 5 CAP/KIT (18 MCG/CAP) IH SCH (09:33)
[2017-02-12] MEDS: CITALOPRAM HYDROBROMIDE 20 MG TABLET PO SCH (09:33)
[2017-02-12] MEDS: DILTIAZEM HCL 120 MG CAP.SR.24H PO SCH (09:37)
[2017-02-12] MEDS ORDERED: FUROSEMIDE INJ/PF 20 MG/2 ML SDV IV SCH ×3 (10:00)
[2017-02-12] MEDS: BENZOCAINE/MENTHOL SORE THROAT LOZENGE BUCCAL PRN (13:02)
[2017-02-12] MEDS ORDERED: ACETAMINOPHEN 325 MG TABLET PO PRN (13:57)
[2017-02-12] MEDS ORDERED: PREDNISONE 20 MG TABLET PO ONE (16:00)
[2017-02-12] MEDS: BUDESONIDE NEB 0.5 MG/2 ML AMPUL NEB SCH (20:16)
[2017-02-12] MEDS: ATORVASTATIN CALCIUM 10 MG TABLET PO SCH (21:22)
--- NOTE | 2017-02-12 22:36 | PDOC PROGRESS REPORT ---
Subjective Progress Note for:: 02/11/17 Subjective:: Patient is still dyspneic, no fever no chills Mentation is good Physical Exam Vital Signs: Temp Pulse Resp BP Pulse Ox 98.2 F 88 24 H 118/62 98 02/12/17 20:03 02/12/17 20:15 02/12/17 20:15 02/12/17 20:03 02/12/17 20:03 Intake & Output 02/11/17 02/12/17 02/13/17 00:59 00:59 00:59 Intake Total 2401 1850 120 Output Total 600 Balance 1801 1850 120 Weight 74 kg 71.2 kg 71.8 kg General appearance: PRESENT: no acute distress Head exam: PRESENT: atraumatic, normocephalic Eye exam: PRESENT: conjunctiva pink, EOMI, PERRLA. ABSENT: scleral icterus Neck exam: ABSENT: carotid bruit, JVD, lymphadenopathy, thyromegaly Respiratory exam: PRESENT: accessory muscle use, decreased breath sounds, rhonchi Cardiovascular exam: PRESENT: RRR. ABSENT: diastolic murmur, rubs, systolic murmur GI/Abdominal exam: PRESENT: normal bowel sounds, soft. ABSENT: distended, guarding, mass, organolmegaly, rebound, tenderness Extremities exam: PRESENT: full ROM. ABSENT: calf tenderness, clubbing, pedal edema Neurological exam: PRESENT: alert, awake, CN II-XII grossly intact Results Laboratory Results: 02/12/17 04:45 02/12/17 04:45 02/11/17 02/11/17 02/12/17 23:58 23:58 01:19 WBC 8.9 RBC 3.16 L Hgb 9.4 L Hct 27.0 L MCV 86 MCH 29.7 MCHC 34.7 RDW 13.9 Plt Count 187 Seg Neutrophils % Lymphocytes % Monocytes % Eosinophils % Basophils % Absolute Neutrophils Absolute Lymphocytes Absolute Monocytes Absolute Eosinophils Absolute Basophils Sodium Cancelled 139.6 Potassium Cancelled 3.7 Chloride Cancelled 105 Carbon Dioxide Cancelled 24 Anion Gap Cancelled 11 BUN Cancelled 15 Creatinine Cancelled 1.14 Est GFR ( Amer) Cancelled 57 L Est GFR (Non-Af Amer) Cancelled 47 L Glucose Cancelled 117 H Calcium Cancelled 9.6 02/12/17 02/12/17 04:45 04:45 WBC 8.3 RBC 3.02 L Hgb 8.9 L Hct 25.7 L MCV 85 MCH 29.4 MCHC 34.6 RDW 13.5 Plt Count 159 Seg Neutrophils % 73.8 Lymphocytes % 13.8 Monocytes % 12.2 Eosinophils % 0.0 Basophils % 0.2 Absolute Neutrophils 6.2 Absolute Lymphocytes 1.2 Absolute Monocytes 1.0 Absolute Eosinophils 0.0 Absolute Basophils 0.0 Sodium 138.8 Potassium 3.6 Chloride 103 Carbon Dioxide 23 Anion Gap 13 BUN 16 Creatinine 1.20 Est GFR ( Amer) 53 L Est GFR (Non-Af Amer) 44 L Glucose 114 H Calcium 9.5 02/06/17 02/07/17 23:12 07:13 Troponin I < 0.012 < 0.012 NT-Pro-B Natriuret Pep 553 Impressions: Lung Scan-VQ NM 02/06/17 19:15 IMPRESSION: HETEROGENOUS ACTIVITY MOST CONSISTENT WITH UNDERLYING LUNG DISEASE. MATCHED VENTILATION-PERFUSION DEFECTS. NO MISMATCH DEFECTS. LOW PROBABILITY OF PULMONARY EMBOLISM. Chest X-Ray 02/11/17 23:43 IMPRESSION: NO ACUTE RADIOGRAPHIC FINDING IN THE CHEST. Assessment & Plan - Diagnosis (2) Coronary artery disease Qualifiers: Coronary Disease-Associated Artery/Lesion type: [place] artery Associated angina: angina presence unspecified Is this a current diagnosis for this admission?: Yes (3) Hypoxemia Is this a current diagnosis for this admission?: Yes (4) Pneumonia Qualifiers: Pneumonia type: due to unspecified organism Laterality: right Lung location: upper lobe of lung Qualified Code(s): J18.1 - Lobar pneumonia, unspecified organism Is this a current diagnosis for this admission?: Yes (5) CKD (chronic kidney disease), stage III Is this a current diagnosis for this admission?: Yes (6) Chronic atrial fibrillation Is this a current diagnosis for this admission?: Yes (7) Delirium Is this a current diagnosis for this admission?: Yes - Time Time Spent with patient: We will continue to monitor Continue the present management Patient to be discharged to SNF when stable Time Spent with patient: 25-34 minutes
--- NOTE | 2017-02-12 22:41 | PDOC PROGRESS REPORT ---
Subjective Progress Note for:: 02/12/17 Subjective:: Patient had respiratory distress last night and had to be placed on BiPAP support Etiology of her breathing issues is unclear ? Is the patient having aspiration pneumonia She states that she seems to be worse after meals and on physical examination she sounds extremely congested as if he had aspirated Patient does not have overt heart failure She did not have pulmonary embolism And she has not improved yet dramatically She does have a bed at [facility] but today she certainly is not stable enough to be transferred She has no chest pain and is otherwise clinically improved, Physical Exam Vital Signs: Temp Pulse Resp BP Pulse Ox 98.2 F 88 24 H 118/62 98 02/12/17 20:03 02/12/17 20:15 02/12/17 20:15 02/12/17 20:03 02/12/17 20:03 Intake & Output 02/11/17 02/12/17 02/13/17 00:59 00:59 00:59 Intake Total 2401 1850 120 Output Total 600 Balance 1801 1850 120 Weight 74 kg 71.2 kg 71.8 kg General appearance: PRESENT: no acute distress, well-developed, well-nourished Head exam: PRESENT: atraumatic, normocephalic Eye exam: PRESENT: conjunctiva pink, EOMI, PERRLA. ABSENT: scleral icterus Ear exam: PRESENT: normal external ear exam Mouth exam: PRESENT: moist, tongue midline Neck exam: ABSENT: carotid bruit, JVD, lymphadenopathy, thyromegaly Respiratory exam: PRESENT: rhonchi - Bilaterally. ABSENT: rales, wheezes Cardiovascular exam: PRESENT: RRR. ABSENT: diastolic murmur, rubs, systolic murmur Pulses: PRESENT: normal dorsalis pedis pul Vascular exam: PRESENT: normal capillary refill GI/Abdominal exam: PRESENT: normal bowel sounds, soft. ABSENT: distended, guarding, mass, organolmegaly, rebound, tenderness Rectal exam: PRESENT: deferred Extremities exam: PRESENT: full ROM. ABSENT: calf tenderness, clubbing, pedal edema Neurological exam: PRESENT: alert, awake, oriented to person, oriented to place , oriented to time, oriented to situation, CN II-XII grossly intact. ABSENT: motor sensory deficit Psychiatric exam: PRESENT: appropriate affect, normal mood. ABSENT: homicidal ideation, suicidal ideation Skin exam: PRESENT: dry, intact, warm. ABSENT: cyanosis, rash Results Laboratory Results: 02/12/17 04:45 02/12/17 04:45 02/11/17 02/11/17 02/12/17 23:58 23:58 01:19 WBC 8.9 RBC 3.16 L Hgb 9.4 L Hct 27.0 L MCV 86 MCH 29.7 MCHC 34.7 RDW 13.9 Plt Count 187 Seg Neutrophils % Lymphocytes % Monocytes % Eosinophils % Basophils % Absolute Neutrophils Absolute Lymphocytes Absolute Monocytes Absolute Eosinophils Absolute Basophils Sodium Cancelled 139.6 Potassium Cancelled 3.7 Chloride Cancelled 105 Carbon Dioxide Cancelled 24 Anion Gap Cancelled 11 BUN Cancelled 15 Creatinine Cancelled 1.14 Est GFR ( Amer) Cancelled 57 L Est GFR (Non-Af Amer) Cancelled 47 L Glucose Cancelled 117 H Calcium Cancelled 9.6 02/12/17 02/12/17 04:45 04:45 WBC 8.3 RBC 3.02 L Hgb 8.9 L Hct 25.7 L MCV 85 MCH 29.4 MCHC 34.6 RDW 13.5 Plt Count 159 Seg Neutrophils % 73.8 Lymphocytes % 13.8 Monocytes % 12.2 Eosinophils % 0.0 Basophils % 0.2 Absolute Neutrophils 6.2 Absolute Lymphocytes 1.2 Absolute Monocytes 1.0 Absolute Eosinophils 0.0 Absolute Basophils 0.0 Sodium 138.8 Potassium 3.6 Chloride 103 Carbon Dioxide 23 Anion Gap 13 BUN 16 Creatinine 1.20 Est GFR ( Amer) 53 L Est GFR (Non-Af Amer) 44 L Glucose 114 H Calcium 9.5 02/06/17 02/07/17 23:12 07:13 Troponin I < 0.012 < 0.012 NT-Pro-B Natriuret Pep 553 Impressions: Lung Scan-VQ NM 02/06/17 19:15 IMPRESSION: HETEROGENOUS ACTIVITY MOST CONSISTENT WITH UNDERLYING LUNG DISEASE. MATCHED VENTILATION-PERFUSION DEFECTS. NO MISMATCH DEFECTS. LOW PROBABILITY OF PULMONARY EMBOLISM. Chest X-Ray 02/11/17 23:43 IMPRESSION: NO ACUTE RADIOGRAPHIC FINDING IN THE CHEST. Assessment & Plan - Diagnosis (2) Coronary artery disease Qualifiers: Coronary Disease-Associated Artery/Lesion type: [place] artery Associated angina: angina presence unspecified Is this a current diagnosis for this admission?: Yes (3) Hypoxemia Is this a current diagnosis for this admission?: Yes (4) Pneumonia Qualifiers: Pneumonia type: due to unspecified organism Laterality: right Lung location: upper lobe of lung Qualified Code(s): J18.1 - Lobar pneumonia, unspecified organism Is this a current diagnosis for this admission?: Yes (5) CKD (chronic kidney disease), stage III Is this a current diagnosis for this admission?: Yes (6) Chronic atrial fibrillation Is this a current diagnosis for this admission?: Yes (7) Delirium Is this a current diagnosis for this admission?: YesPlan: Patient is confused at times and she has sundowning We will prescribed small doses of Risperdal - Time Time Spent with patient: We will continue Levaquin IV Added steroids and nebs CT of the chest will be performed in a.m.; as well as a cookie swallow to evaluate the possibility of aspiration pneumonia Time Spent with patient: 15-24 minutes
[2017-02-13] MEDS: BENZONATATE 100 MG CAPSULE PO SCH ×3 (05:27→21:18)
[2017-02-13] MEDS: ENOXAPARIN SODIUM INJ 30 MG/0.3 ML DISP.SYRIN SUBCUT SCH (07:28)
[2017-02-13] MEDS: IPRATROPIUM/ALBUTEROL 0.5-2.5 MG/3 ML AMPUL NEB SCH ×3 (08:03→20:56)
[2017-02-13] MEDS: BUDESONIDE NEB 0.5 MG/2 ML AMPUL NEB SCH ×2 (08:03→20:55)
--- NOTE | 2017-02-13 09:02 | ST Inp Modified Barium Swallow ---
Medical Diagnosis - Medical Diagnoses Medical Diagnosis Description & ICD-10 Code(s): SOB - ICD-10 Tx Diagnosis Coding (1) Dysphagia, unspecified ICD-10 Code(s): R13.10 - DYSPHAGIA, UNSPECIFIED ST [place] [facility] [place]: 02[place]13/17 Date of Onset: 02/06/17 - History History Obtained From: Patient - per EMR -: Medical - Per EMR; pt significant for; weakness, PNA, hypoxemia, "seems worse after meals", CAD, CKD, chronic a-fib, delirium, SOB. MD has concerns for aspiration. Chest xray shows WNL,. Lung scan shows heterogenous activity most consistent with underlying lung disease. Pt reports "sometimes" coughing during meals. PMHx: NC, hyperlipidemia, HTN, CHF, asthma, COPD, depression. Medications: Medications Reviewed Allergies: Refer to medical record - Subjective Current Nutritional Means: PO Current PO Diet: Regular Current Symptoms: Coughing Pain: 0/5 - Objective Assessment: Upright, Left Lateral - Food Trials Food Trials Used: Thin liquids, Pureed, Soft solids The Patient: Was Able to Self Feed - Assessment Labial Function: Within Functional Limits Lingual Function: Within Functional Limits Mandibular Function: Within Normal Limits Dentition: Edentulous Velo-Pharyngeal Function: Unremarkable Laryngeal Function: Volitional Cough, Volitional Swallow - Pharyngeal Stage Initiation of Pharyngeal Stage: Normal Decreased Laryngeal Elevation: No Reduced Velo-Pharyngeal Closure: no Reduced Pressure Generation: No Reduced Tongue Base Retraction: No Pre-Swallowing Pooling in Valleculae: None Pre-Swallowing Pooling in Pyriforms: None Reduced Thyro-Hyiod Approximation: No Reduced Epiglottic Excursion: No Reduced Pharyngeal Peristalsis: No Post Swallow Residuals in Valleculae: None Post Swallow Residuals in Pyriforms: None - Impression/Summary Laryngeal Penetration: No Tracheal Aspiration: no Patient Presents With: Normal swallow at eval - safe and effective swallow observed Risk of Aspiration: Minimal - Recommendations NPO: no Solid Diet Recommendations: Mechanical Soft, Chopped Meat Liquid Diet Recommendations: Thin Strict Aspitarion Precautions: No Dysphagia Therapy with [employer]ING: No Recommended Techniques: Fully Upright During Meal Supervision: Distant Other Recommendations: 1) DIET: Recommend mechanical soft cut meats and thin liquids. 2) Fully upright during meals. 3) Slow rate of intake. SUMMARY: No penetration or aspiration into airway during study. No radiographic findings of pharyngeal residuals. Pt observed to cough x2 however no penetration, aspiration or pharyngeal residuals observed. ST contacted MD regarding results and recommendations. - Time Total Time: 20 Total Timed Minutes: 0 ST F.L. Impairment Category - Rationale Based On Rationale Based On: Clin Find., Obj Measures - Swallowing Current G8996: CH 0% Impaired Goal G8997: CH 0% Impaired Discharge G8998: CH 0% Impaired
[2017-02-13] MEDS: LEVOFLOXACIN 750 MG TABLET PO SCH (09:19)
[2017-02-13] MEDS: DILTIAZEM HCL 120 MG CAP.SR.24H PO SCH (09:19)
[2017-02-13] MEDS: RISPERIDONE 0.25 MG TABLET PO SCH ×2 (09:19→21:18)
[2017-02-13] MEDS: GUAIFENESIN 600 MG TABLET.SA PO SCH ×2 (09:19→21:18)
[2017-02-13] MEDS: CITALOPRAM HYDROBROMIDE 20 MG TABLET PO SCH (09:19)
[2017-02-13] MEDS: PREDNISONE 20 MG TABLET PO SCH (09:20)
[2017-02-13] MEDS: ASPIRIN 81 MG TABLET, CHEWABLE PO SCH (09:20)
[2017-02-13] MEDS: FAMOTIDINE 20 MG TABLET PO SCH (09:20)
[2017-02-13] MEDS: TIOTROPIUM BROMIDE DPI 5 CAP/KIT (18 MCG/CAP) IH SCH (09:20)
[2017-02-13] MEDS: ATENOLOL 50 MG TABLET PO SCH (09:20)
[2017-02-13] MEDS: NYSTATIN 500000 UNIT/5 ML UDCUP PO SCH ×3 (14:05→21:18)
--- NOTE | 2017-02-13 14:36 | PDOC PROGRESS REPORT ---
Subjective Progress Note for:: 02/13/17 Subjective:: Reason for visit: Follow-up pneumonia, hypoxic respiratory failure Hospital course: Per H&P "SACHIN GEIGER is a 71 year old female Was brought to the ED with increasing cough shortness of breath Upon evaluation in the ED she was found to be hypoxemic She was coughing sputum greenish thick She was subsequently admitted under hospitalist service with a diagnosis of pneumonia" Her hospital course has been complicated by recurring confusion at night and resulted in an episode of respiratory distress last night that required time on BiPAP support. Daughters arrived at the bedside and states she sounds better today than they've hurt her throughout her hospitalization. She underwent VQ scan on presentation that was low probability for pulmonary emboli. She underwent echocardiogram that showed a well-preserved left ventricular function but 1/4 diastolic dysfunction and trivial valvular regurgitations. She underwent chest CT this morning that shows a tree-in-bud pattern in the distal periphery of the lungs bilateral worrisome for an atypical pneumonia. Subjective: She denies chest pain, fever, chills, nausea, vomiting, diarrhea. In fact she is eating her breakfast this morning when I arrived without any difficulty. She's been evaluated by speech therapy and underwent a modified barium swallow that showed no signs of aspiration and no significant residuals and she was cleared for diet with minimal mechanical restrictions. ROS: per HPI plus a total of 10 systems reviewed, pertinent positives and negatives noted above, remaining systems negative. Physical Exam Vital Signs: Temp Pulse Resp BP Pulse Ox 97.5 F 77 18 138/74 H 97 02/13/17 11:52 02/13/17 14:00 02/13/17 14:00 02/13/17 11:40 02/13/17 14:00 Intake & Output 02/12/17 02/13/17 02/14/17 06:59 06:59 06:59 Intake Total 1630 770 850 Output Total 200 Balance 1630 770 650 Weight 71.8 kg 69.4 kg EXAM GENERAL: NAD; well developed, well nourished; mild obese; alert and oriented to person, place, and situation HEENT: normocephalic, atraumatic; no conjunctival injection, no scleral icterus ; oral mucosa moist; RESPIRATORY: no accessory muscle use, no increased WOB, good air entry bilaterally; no wheezes, or rhonchi; she does have dense rales at the right greater than left bases with opening squeaks and pops at the right base CARDIO: no JVD; RRR; no systolic murmur; no tachycardia GI: soft; nondistended; normal bowel sounds; no rebound, rigidity, guarding; nontender VASCULAR: no pallor; 2+ radial, DP pulse; normal capillary refill EXTREMITIES: no calf tender; no palpable cords in calf; no clubbing, cyanosis ; trace pedal edema PSYCH: normal affect, normal mood SKIN: warm; moist; no petechiae; no telengectasias; no jaundice; no rash Results Laboratory Results: 02/12/17 04:45 02/12/17 04:45 02/06/17 02/07/17 23:12 07:13 Troponin I < 0.012 < 0.012 NT-Pro-B Natriuret Pep 553 Impressions: Lung Scan-VQ NM 02/06/17 19:15 IMPRESSION: HETEROGENOUS ACTIVITY MOST CONSISTENT WITH UNDERLYING LUNG DISEASE. MATCHED VENTILATION-PERFUSION DEFECTS. NO MISMATCH DEFECTS. LOW PROBABILITY OF PULMONARY EMBOLISM. Chest X-Ray 02/11/17 23:43 IMPRESSION: NO ACUTE RADIOGRAPHIC FINDING IN THE CHEST. Chest CT 02/12/17 23:01 IMPRESSION: Peripheral mixed alveolar and interstitial infiltrates with tree-in -bud pattern worrisome for peripheral distal airway disease such as bronchiolitis obliterans. Inhalational injury, fungal or atypical bacterial infection could cause this appearance. Status: Imported from PACS Assessment & Plan - Diagnosis (1) Pneumonia Qualifiers: Pneumonia type: due to unspecified organism Laterality: right Lung location: upper lobe of lung Qualified Code(s): J18.1 - Lobar pneumonia, unspecified organism Is this a current diagnosis for this admission?: YesPlan: Appears to be an atypical pneumonia which should be covered by Levaquin therapy. Microbiology is unrevealing for specific pathogen. Modified barium swallow argues against aspiration. Would recommend minimum two-week course of antibiotics. (2) Hypoxemia Is this a current diagnosis for this admission?: YesPlan: Secondary to the above, continue attempts to wean supplemental O2. Continue incentive spirometry. (3) Coronary artery disease Qualifiers: Coronary Disease-Associated Artery/Lesion type: [place] artery Associated angina: angina presence unspecified Is this a current diagnosis for this admission?: YesPlan: Stable at this time. No active ischemic symptoms. (4) Delirium Is this a current diagnosis for this admission?: YesPlan: Waxing and waning course, daughters indicate improvement with low-dose Risperdal. We'll continue same. Anticipate transfer to [facility] facility in the next 24 hours. (5) Chronic atrial fibrillation Is this a current diagnosis for this admission?: YesPlan: Rate control. - Time Time Spent with patient: 25-34 minutes Anticipated discharge: SNF Within: within 24 hours - Has bed offer at [place]
[2017-02-13] MEDS: ATORVASTATIN CALCIUM 10 MG TABLET PO SCH (21:18)
[2017-02-14] MEDS: IPRATROPIUM/ALBUTEROL 0.5-2.5 MG/3 ML AMPUL NEB PRN ×3 (01:22→15:35)
[2017-02-14] MEDS: BENZONATATE 100 MG CAPSULE PO SCH ×2 (05:46→15:12)
[2017-02-14] MEDS: ENOXAPARIN SODIUM INJ 30 MG/0.3 ML DISP.SYRIN SUBCUT SCH (07:40)
[2017-02-14] MEDS: IPRATROPIUM/ALBUTEROL 0.5-2.5 MG/3 ML AMPUL NEB SCH (08:00)
[2017-02-14] MEDS: BUDESONIDE NEB 0.5 MG/2 ML AMPUL NEB SCH (09:08)
--- NOTE | 2017-02-14 09:18 | PDOC TRANSFER SUMMARY ---
General - Admit/Disc Date/PCP Admission Date/Primary Care Provider: 02/06/17 19:11 LINDSAY RICK MD Discharge Date: 02/14/17 - Discharge Diagnosis (1) Pneumonia Is this a current diagnosis for this admission?: YesSummary: Appears to be an atypical pneumonia seen on CT chest with tree-in-bud appearance which should be covered by Levaquin therapy. Microbiology is unrevealing for specific pathogen. Modified barium swallow argues against aspiration. Would recommend minimum total two-week course of antibiotics. (2) Hypoxemia Is this a current diagnosis for this admission?: YesSummary: 2/ above, continue to wean O2 as tolerated. she reports previously using home O2 but can't tell me why or how long ago, may need home O2 again if fails to clear. continue incentive spirometry and increase activity as tolerated with PT at SNF. (3) Coronary artery disease Is this a current diagnosis for this admission?: YesSummary: no active ischemic symptoms and TpI neg x3 on admission. continue usual home regimen. (4) Delirium Is this a current diagnosis for this admission?: YesSummary: transient and likely related to acute illness and hypoxia; should continue to clear. ok to use risperdal prn at night when her symptoms at their worst. defer to facility MD for further eval and Tx as needed. (5) Chronic atrial fibrillation Is this a current diagnosis for this admission?: YesSummary: Dr Howell started documenting chronic afib on 02/08/17 but she has been in sinus rhythm or sinus tach throughout her hospitalization; she has no frcollection of afib but her medical insight is sorely lacking. review of old d/c summaries and H&Ps make no mention of afib previously. That being said, her rate does need better control, cardizem added by dr howell early in her course and dose titrated up today. defer to facility MD for further titration of her beta and/ or calcium channel goldy as indicated. Until diagnosis can be confirmed by her PCP I would not full dose anticoagulate this patient, defer to her PCP to sort this out. continue DVT prophylaxis with lovenox until ambulatory again, defer to PCP or facility MD to decide length of therapy. - Additional Information Resuscitation Status: Full Code Discharge Diet: Other (Comments) - mechanical soft,thin liquids with aspiration precautions per facility protocol Discharge Activity: Activity As Tolerated, Slowly Increase Activity, Supervised Activity Home Medications: Albuterol Sulfate [Ventolin Hfa] 2 puff IH Q4HP PRN 02/06/17 Aspirin [Aspirin 81 mg Chewable Tablet] 81 mg PO DAILY 02/06/17 Pravastatin Sodium [Pravachol] 20 mg PO DAILY 02/06/17 Ranitidine HCl [Zantac 150 mg Tablet] 150 mg PO DAILY 02/06/17 Tiotropium [place] [Spiriva Handihaler 5 Cap/Kit (18 Mcg/Cap)] 1 cap IH DAILY Budesonide/Formoterol Fumarate [Symbicort HFA 80-4.5 mcg Inhaler 6.9 gm] 2 puff IH BID 02/08/17 Acetaminophen [Tylenol 325 mg Tablet] 650 mg PO Q4HP PRN tablet 02/14/17 Atenolol [Tenormin 50 mg Tablet] 25 mg PO DAILY tablet 02/14/17 Benzocaine/Menthol [Chloraseptic Sore Throat Lozenge] 1 each BUCCAL Q6HP PRN lozenge 02/14/17 Benzonatate [Tessalon Perles 100 mg Capsule] 100 mg PO Q8 #21 capsule 02/14/17 Citalopram Hydrobromide [Celexa 20 mg Tablet] 10 mg PO DAILY tablet 02/14/17 Diltiazem HCl [Cardizem Cd 120 mg Capsule] 120 mg PO BID cap.sr.24h 02/14/17 Enoxaparin Sodium [Lovenox Inj 30 mg/0.3 ml Disp.syrin] 30 mg SUBCUT QAM disp.syrin 02/14/17 Guaifenesin [Mucinex Sr 600 mg Tablet.sa] 600 mg PO Q12 tablet.sa 02/14/17 Ipratropium/Albuterol Sulfate [Duoneb 3 ml Ampul] 3 ml NEB RTQ2HP PRN vial.neb 02/14/17 Levofloxacin [Levaquin 750 mg Tablet] 750 mg PO Q2D@1000 #7 tablet 02/14/17 Nystatin [Mycostatin 500,000 Unit/5 ml Susp Udcup] 500,000 unit PO QID udc Prednisone [Deltasone 20 mg Tablet] 60 mg PO DAILY #7 tablet 02/14/17 Risperidone [Risperdal 0.25 mg Tablet] 0.25 mg PO Q12 #14 tablet 02/14/17 History of Present Illness Admission Date/PCP: 02/06/17 19:11 LINDSAY RICK MD Patient complains of: shortness of breath. History of Present Illness: SACHIN GEIGER is a 71 year old female Was brought to the ED with increasing cough shortness of breath Upon evaluation in the ED she was found to be hypoxemic She was coughing sputum greenish thick She was subsequently admitted under hospitalist service with a diagnosis of pneumonia Hospital Course Hospital Course: "SACHIN GEIGER is a 71 year old female Was brought to the ED with increasing cough shortness of breath Upon evaluation in the ED she was found to be hypoxemic She was coughing sputum greenish thick She was subsequently admitted under hospitalist service with a diagnosis of pneumonia" Her hospital course has been complicated by recurring confusion at night and resulted in an episode of respiratory distress that required short time on BiPAP support for one night and no recurrence since. Daughters arrived at the bedside and states she sounds better today than they've heard her throughout her hospitalization. She underwent VQ scan on presentation that was low probability for pulmonary emboli. She underwent echocardiogram that showed a well-preserved left ventricular function but 1/4 diastolic dysfunction and trivial valvular regurgitations. She underwent chest CT that shows a tree-in-bud pattern in the distal periphery of the lungs bilateral worrisome for an atypical pneumonia. She denies chest pain, fever, chills, nausea, vomiting, diarrhea. In fact she is eating her breakfast this morning when I arrived without any difficulty. She 's been evaluated by speech therapy and underwent a modified barium swallow that showed no signs of aspiration and no significant residuals and she was cleared for diet with minimal mechanical restrictions. she appears to be stable for transition over to [facility] for ongoing rehab in an effort to return her to independent living. she will likely need further rate control, her PCP needs to weigh in on the diagnosis of afib or not and make decisions regarding anticoagulation. she will need continued attempts at weaning O2 though she has required home O2 in the past due to advanced COPD and may yet require permanent home O2, will defer to PCP regarding these matters; consider outpt pulmonary consult as indicated. Physical Exam Vital Signs: Temp Pulse Resp BP Pulse Ox 97.4 F 93 20 141/78 H 99 02/14/17 08:00 02/14/17 08:00 02/14/17 08:00 02/14/17 08:00 02/14/17 08:00 Intake & Output 02/13/17 02/14/17 02/15/17 06:59 06:59 06:59 Intake Total 770 1400 Output Total 200 Balance 770 1200 Weight 69.4 kg 69.9 kg EXAM GENERAL: NAD; well developed, well nourished; mild obese; alert and oriented to person, place, and situation HEENT: normocephalic, atraumatic; no conjunctival injection, no scleral icterus ; oral mucosa moist; RESPIRATORY: no accessory muscle use, no increased WOB, good air entry bilaterally; no wheezes, or rhonchi; she does have dense rales at the right greater than left bases with opening squeaks and pops at the right base as before; cough and secretions decreasing CARDIO: no JVD; RRR; no systolic murmur;borderline sinus tachycardia on monitor GI: soft; nondistended; normal bowel sounds; no rebound, rigidity, guarding; nontender VASCULAR: no pallor; 2+ radial, DP pulse; normal capillary refill EXTREMITIES: no calf tender; no palpable cords in calf; no clubbing, cyanosis ; trace pedal edema PSYCH: normal affect, normal mood SKIN: warm; moist; no petechiae; no telengectasias; no jaundice; no rash Results Laboratory Results: 02/12/17 04:45 02/12/17 04:45 02/06/17 02/07/17 23:12 07:13 Troponin I < 0.012 < 0.012 NT-Pro-B Natriuret Pep 553 Impressions: Lung Scan-VQ NM 02/06/17 19:15 IMPRESSION: HETEROGENOUS ACTIVITY MOST CONSISTENT WITH UNDERLYING LUNG DISEASE. MATCHED VENTILATION-PERFUSION DEFECTS. NO MISMATCH DEFECTS. LOW PROBABILITY OF PULMONARY EMBOLISM. Chest X-Ray 02/11/17 23:43 IMPRESSION: NO ACUTE RADIOGRAPHIC FINDING IN THE CHEST. Chest CT 02/12/17 23:01 IMPRESSION: Peripheral mixed alveolar and interstitial infiltrates with tree-in -bud pattern worrisome for peripheral distal airway disease such as bronchiolitis obliterans. Inhalational injury, fungal or atypical bacterial infection could cause this appearance. Transfer Plan - Disposition Transfer Plan: continue oral abx, wean O2 as gabriela, increase activity as gabriela with PT - Time Spent with Patient Time spent with patient: Greater than 30 Minutes Qualifiers PATEINT BEING DISCHARGED WITH ANY OF THE FOLLOWING DIAGNOSIS?: No VTE patient discharged on overlapping Therapy?: Yes
[2017-02-14] MEDS: ASPIRIN 81 MG TABLET, CHEWABLE PO SCH (09:45)
[2017-02-14] MEDS: ATENOLOL 50 MG TABLET PO SCH (09:49)
[2017-02-14] MEDS: CITALOPRAM HYDROBROMIDE 20 MG TABLET PO SCH (09:52)
[2017-02-14] MEDS: RISPERIDONE 0.25 MG TABLET PO SCH (09:54)
[2017-02-14] MEDS: PREDNISONE 20 MG TABLET PO SCH (09:58)
[2017-02-14] MEDS ORDERED: DILTIAZEM HCL 120 MG CAP.SR.24H PO SCH (10:00)
[2017-02-14] MEDS: GUAIFENESIN 600 MG TABLET.SA PO SCH (10:01)
[2017-02-14] MEDS: FAMOTIDINE 20 MG TABLET PO SCH (10:04)
[2017-02-14] MEDS: TIOTROPIUM BROMIDE DPI 5 CAP/KIT (18 MCG/CAP) IH SCH (10:05)
[2017-02-14] MEDS: NYSTATIN 500000 UNIT/5 ML UDCUP PO SCH ×2 (10:08→15:13)
[2017-02-14 14:47] VITALS: BP 123/65
== END 2017-02-14 17:35 | DRG 190 ==
LOC: ER 15:26 → UNDOADMIN 18:09 → EH 18:09 → 4S 02-07 14:26
PROVIDERS: ADMIT Emergency Medicine; ATTEND Emergency Medicine
PROC: 3E0F73Z Introduction of Anti-inflammatory into Respiratory Tract, Via Natural or Artificial Opening (ICD-10-PCS; 2017-02-07)
PROC: 5A09457 Assistance with Respiratory Ventilation, 24-96 Consecutive Hours, Continuous Positive Airway Pressure (ICD-10-PCS; principal; 2017-02-11)
DX: J44.0 Chronic obstructive pulmonary disease with (acute) lower respiratory infection (principal); J18.9 Pneumonia, unspecified organism; I13.0 Hypertensive heart and chronic kidney disease with heart failure and stage 1 through stage 4 chronic kidney disease, or unspecified chronic kidney disease; I50.22 Chronic systolic (congestive) heart failure; I25.10 Atherosclerotic heart disease of native coronary artery without angina pectoris; R40.4 Transient alteration of awareness; R09.02 Hypoxemia; I48.2 Chronic atrial fibrillation; F32.9 Major depressive disorder, single episode, unspecified; E78.5 Hyperlipidemia, unspecified; N18.3 Chronic kidney disease, stage 3 (moderate); Z79.82 Long term (current) use of aspirin; Z79.899 Other long term (current) drug therapy; I25.2 Old myocardial infarction; Z82.49 Family history of ischemic heart disease and other diseases of the circulatory system; Z82.3 Family history of stroke; Z79.51 Long term (current) use of inhaled steroids; Z95.5 Presence of coronary angioplasty implant and graft
CPT/HCPCS: 36415; 71010; 71250; 74230; 78582; 80048; 80053; 81001; 82550; 82553; 83880; 84443; 84484; 85025; 85027; 87040; 87070; 87205; 87804; 93005; 93010; 93306; 94660; 94667; 99291; A9540; A9567; G8978-GP; G8979-GP; G8996-GN; G8997-GN; G8998-GN; J1650; J1940; J1956; J2405; J3490; J7030; J7512; J7620; Q9969

== ENCOUNTER 2017-02-16 13:40 | Inpatient (IN) | payer MEDICARE ==
[2017-02-16] MEDS ORDERED: IPRATROPIUM/ALBUTEROL 0.5-2.5 MG/3 ML AMPUL NEB ONE ×2 (14:16)
--- NOTE | 2017-02-16 14:16 | ER Document Report ---
ED General <CECILIA BILLY - Last Filed: 02/16/17 16:24> - General Time seen by provider: 14:07 Mode of Arrival: Medic Information source: Relative - daughters x2, Transfer Record TRAVEL OUTSIDE OF THE [place] IN LAST 30 DAYS: No - HPI Onset: This morning - see HPI note <BARRETTROLANDO - Last Filed: 02/16/17 17:10> - General Stated Complaint: WEAKNESS Notes: Patient is a 71 year old female presenting to the emergency department for weakness, difficulty breathing, and some abdominal pain. Patient is a resident of [facility] and was sent in today to be evaluated for the above. Patient was recently admitted to [facility] for pneumonia on 02/06/17 and discharged back to [facility] on 02/14/17. Patient was discharged with Levaquin to treat her pneumonia. Patient was on BiPAP for a while on 02/12 while in the hospital. Patient's 2 daughters are present and they state that the patient seems more tired and weak than usual and is having some difficulty breathing. Patient has speech and physical therapy daily at [facility]. Patient was on 4 L of O2 at [facility] and was supposed to be weaned off of oxygen according to her discharge note. Patient has a history of chronic COPD, hypertension, [place] with stents, and Alzheimer's disease. Patient has complained to family lately that she has some abdominal pain and her last bowel movement was Sunday (02/11/17). Patient is a Full Code. Patient's PCP is [facility] and she sees Dr. Nelson for cardiology. (ROLANDO HYDE) - Related Data Allergies/Adverse Reactions: aspirin [Aspirin] Allergy (Verified 04/27/14 15:52) diphenhydramine HCl [From Benadryl] Allergy (Verified 04/27/14 15:52) ibuprofen [Ibuprofen] Allergy (Verified 04/27/14 15:52) Past Medical History - General Information source: Relative - daugters x2, Emergency Med Personnel - Social History Smoking Status: Former Smoker Cigarette use (# per day): No Chew tobacco use (# tins/day): No Frequency of alcohol use: None Drug Abuse: None Lives with: Correction - [facility] Family History: None - Past Medical History Cardiac Medical History: Reports: Hx Heart Attack, Hx Hypercholesterolemia, Hx Hypertension Pulmonary Medical History: Reports: Hx Asthma, Hx COPD, Hx Pneumonia Psychiatric Medical History: Reports: Hx Dementia - Alzheimer's, Hx Depression, Hx Schizophrenia Past Surgical History: Reports: Hx Cardiac Catheterization - Stent x2 - Immunizations Immunizations up to date: Yes Hx Diphtheria, Pertussis, Tetanus Vaccination: No Hx Pneumococcal Vaccination: 08/06/13 <ROLANDO HYDE - Last Filed: 02/16/17 17:10> Review of Systems - Review of Systems Constitutional: See HPI, Weakness EENT: No symptoms reported Cardiovascular: No symptoms reported Respiratory: See HPI Gastrointestinal: See HPI, Abdominal pain, Constipation, Last bowel movement - Genitourinary: No symptoms reported Female Genitourinary: No symptoms reported Musculoskeletal: No symptoms reported Skin: No symptoms reported Hematologic/Lymphatic: No symptoms reported Neurological/Psychological: See HPI, Confusion -: Yes All other systems reviewed and negative <BARRETTROLANDO - Last Filed: 02/16/17 17:10> Physical Exam <CECILIA BILLY - Last Filed: 02/16/17 16:24> - Vital signs Interpretation: Hypotensive, Bradycardic <KIMMY HYDEINE - Last Filed: 02/16/17 17:10> - Vital signs Vitals: BP Pulse Ox 88/64 L 99 02/16/17 14:03 02/16/17 14:03 - Notes Notes: GENERAL: Well-appearing, well-nourished and in moderate respiratory distress. HEAD: Atraumatic, normocephalic. EYES: Pupils equal round and reactive to light, extraocular movements intact, sclera anicteric, no conjunctival injection or discharge. ENT: Nares patent, oropharynx clear without exudates, moist mucous membranes. NECK: Normal range of motion, supple without lymphadenopathy. LUNGS: Moderate respiratory distress. Audible rhonchi and diffuse rhonchi with accessory muscle use. HEART: Bradycardia with extrasystole. Hypotensive at 81/54 during exam. ABDOMEN: Soft, tender but non-focal, normoactive bowel sounds. No guarding, no rebound. No masses appreciated. No [place] sign. BACK: No CVA tenderness. EXTREMITIES: Normal range of motion, no calf tenderness, no edema. NEUROLOGICAL: Oriented x1. Cranial nerves grossly intact. Normal sensory and motor exams. No gross cerebellar abnormalities. PSYCH: Confused. SKIN: Pale, warm, dry, normal turgor, no lesions noted. (ROLANDO HYDE) Course - Laboratory Result Diagrams: 02/16/17 14:05 02/16/17 14:05 - Diagnostic Test Radiology reviewed: Image reviewed - Increased interstitial markings, no identified cardiomegaly, Reports reviewed - EKG Interpretation by Me Rhythm: A.Fib - Bradycardia with nonspecific ST abnormalities and moderate artifact. <CECILIA BILLY - Last Filed: 02/16/17 16:24> - Laboratory Result Diagrams: 02/16/17 14:05 02/16/17 14:05 - Consults Dr. Fontenot Time consulted: 16:20 <ROLANDO HYDE - Last Filed: 02/16/17 17:10> - Re-evaluation Re-evalutation: 02/16/17 15:11 Patient is receiving another fluid bolus as the blood pressure will temporary improve and then has been fairly labile. She is tolerating the BiPAP very well with good oxygen saturations but ABG is pending. Chest x-ray showed slight increased interstitial prominence but no cardiomegaly. EKG showing a slow bradycardic atrial fibrillation. I suspect that the elevated WBC count and the hypotension the patient is septic. This seems to have come on quickly family showing me a picture of her sitting upright in a chair smiling and happy this morning. We have initiated Zosyn and vancomycin with her recent hospital stay. Lactic acid slightly elevated at 2.3. If she does have continued low blood pressure we will institute norepinephrine drip. I have asked the nurse to start a second IV. (CECILIA BILLY) - Vital Signs Vital signs: Temp Pulse Resp BP Pulse Ox 97.8 F 47 L 16 99/54 L 100 02/16/17 14:11 02/16/17 14:11 02/16/17 16:15 02/16/17 16:15 02/16/17 16:15 - Laboratory Laboratory results interpreted by me: 02/16/17 02/16/17 02/16/17 14:05 14:05 14:05 WBC 20.7 H RBC 3.17 L Hgb 9.3 L Hct 27.3 L Plt Count 549 H Seg Neuts % (Manual) 82 H Band Neutrophils % 2 L Lymphocytes % (Manual) 8 L Metamyelocytes % 1 H Myelocytes % 1 H Abs Neuts (Manual) 17.8 H ABG pH ABG pCO2 ABG pO2 ABG Total CO2 ABG O2 Saturation BUN 35 H Est GFR (Non-Af Amer) 51 L Glucose 211 H Lactic Acid Calcium 10.9 H Total Bilirubin 1.6 H ALT 60 H NT-Pro-B Natriuret Pep 52084 H Total Protein 5.9 L Urine Protein Urine Bilirubin 02/16/17 02/16/17 02/16/17 14:05 14:50 16:26 WBC RBC Hgb Hct Plt Count Seg Neuts % (Manual) Band Neutrophils % Lymphocytes % (Manual) Metamyelocytes % Myelocytes % Abs Neuts (Manual) ABG pH 7.47 H ABG pCO2 34.8 L ABG pO2 228.8 H ABG Total CO2 25.8 H ABG O2 Saturation 99.6 H BUN Est GFR (Non-Af Amer) Glucose Lactic Acid 2.3 H Calcium Total Bilirubin ALT NT-Pro-B Natriuret Pep Total Protein Urine Protein 100 H Urine Bilirubin SMALL H - Consults Dr. Fontenot Reason for consultation: 02/16/17 16:[address] Fontenot for possible admission; patient will be admitted. (ROLANDO HYDE) Critical Care Note - Critical Care Note Total time excluding time spent on procedures (mins): 42 - 42 minutes <CECILIA BILLY - Last Filed: 02/16/17 16:24> Discharge - Discharge Admitting Provider: Hospitalist <CECILIA BILLY - Last Filed: 02/16/17 16:24> <ROLANDO HYDE - Last Filed: 02/16/17 17:10> - Discharge Clinical Impression: Sepsis associated hypotension, Anemia Acute respiratory failure Qualifiers: Respiratory failure complication: unspecified whether with hypoxia or hypercapnia Qualified Code(s): J96.00 - Acute respiratory failure, unspecified whether with hypoxia or hypercapnia Pneumonia Qualifiers: Pneumonia type: due to unspecified organism Laterality: right Lung location: upper lobe of lung Qualified Code(s): J18.1 - Lobar pneumonia, unspecified organism Condition: Critical Disposition: ADMITTED INPATIENT Scribe Attestation: 02/16/17 16:25 I personally performed the services described in the documentation, reviewed and edited the documentation which was dictated to the scribe in my presence, and it accurately records my words and actions. (CECILIA BILLY) Scribe Documentation - Scribe Written by Bridgette:: Rolando Hyde 02/16/17 15:40 acting as scribe for :: Laura <ROLANDO HYDE - Last Filed: 02/16/17 17:10>
[2017-02-16] MEDS ORDERED: NORMAL SALINE 1000 ML 500 ML IV ONE (14:22)
[2017-02-16 14:27] LABS: HEMATOCRIT 27.3 % (36.0-47.0); HEMOGLOBIN 9.3 g/dL (12.0-15.5); HGB HCT DIFFERENCE 0.6; MEAN CORPUSCULAR HEMOGLOBIN 29.2 pg (27.0-33.4); MEAN CORPUSCULAR VOLUME 86 fl (80-97); RED BLOOD COUNT 3.17 10^6/uL (3.72-5.28); RED CELL DISTRIBUTION WIDTH 13.8 % (11.5-14.0); WHITE BLOOD COUNT 20.7 10^3/uL (4.0-10.5)
[2017-02-16] MEDS ORDERED: VANCOMYCIN HCL INJ 1000 MG VIAL IV ONE (14:27)
[2017-02-16] MEDS ORDERED: PIPERACILLIN/TAZOBACTAM 3.375 GM VIAL IV ONE (14:27)
[2017-02-16 14:42] LABS: ALANINE AMINOTRANSFERASE 60 U/L (9-52); ALBUMIN 3.5 g/dL (3.5-5.0); ALKALINE PHOSPHATASE 84 U/L (38-126); ANION GAP 12 (5-19); ASPARTATE AMINO TRANSFERASE 33 U/L (14-36); BILIRUBIN,DIRECT 0.4 mg/dL (0.0-0.4); BILIRUBIN,TOTAL 1.6 mg/dL (0.2-1.3); BLOOD UREA NITROGEN 35 mg/dL (7-20); CALCIUM 10.9 mg/dL (8.4-10.2); CARBON DIOXIDE 26 mmol/L (22-30); CHLORIDE 104 mmol/L (98-107); CREATININE RESULT 1.05 mg/dL (0.52-1.25); GLUCOSE 211 mg/dL (75-110); MAGNESIUM 1.9 mg/dL (1.6-2.3); POTASSIUM 4.8 mmol/L (3.6-5.0); TOTAL PROTEIN 5.9 g/dL (6.3-8.2)
[2017-02-16 15:03] LABS: BAND NEUTROPHILS % (MANUAL) 2 % (3-5); BASOPHILS % (MANUAL) 0 % (0-2); EOSINOPHILS % (MANUAL) 0 % (0-6); HYPOCHROMASIA 1+; LYMPHOCYTES % (MANUAL) 8 % (13-45); OVALOCYTES SLIGHT; POIKILOCYTOSIS SLIGHT; POLYCHROMASIA SLIGHT; TOTAL CELLS COUNTED 100; TOXIC GRANULATION 1+
[2017-02-16] MEDS ORDERED: NORMAL SALINE 1000 ML 1,500 ML IV ONE (15:04)
[2017-02-16 15:19] LABS: ARTERIAL BLOOD BASE EXCESS 1.2 mmol/L; ARTERIAL BLOOD O2 SATURATION 99.6 % (94-98)
[2017-02-16 16:56] LABS: APPEARANCE,URINE CLOUDY; BILIRUBIN,URINE SMALL (NEGATIVE); GLUCOSE, URINE NEGATIVE (NEGATIVE); KETONES,URINE NEGATIVE (NEGATIVE); LEUKOCYTE ESTERASE,URINE NEGATIVE (NEGATIVE); NITRITE,URINE NEGATIVE (NEGATIVE); PROTEIN,URINE 100 mg/dL (NEGATIVE); URINE SPECIFIC GRAVITY 1.026; UROBILINOGEN,URINE NEGATIVE mg/dL (<2.0)
[2017-02-16] MEDS ORDERED: IPRATROPIUM/ALBUTEROL 0.5-2.5 MG/3 ML AMPUL NEB PRN (18:44)
[2017-02-16] MEDS ORDERED: RINGERS SOLUTION,LACTATED 1,000 ML IV PRN (18:51)
[2017-02-16] MEDS ORDERED: ACETAMINOPHEN 325 MG TABLET PO PRN (18:51)
[2017-02-16] MEDS ORDERED: VANCOMYCIN HCL 0 MG in DEXTROSE 5%-WATER 250 ML IV NR (19:00)
[2017-02-16] MEDS ORDERED: RINGERS SOLUTION,LACTATED 1,000 ML IV ONE (19:06)
[2017-02-16] MEDS ORDERED: ENOXAPARIN SODIUM INJ 30 MG/0.3 ML DISP.SYRIN SUBCUT ONE (20:00)
--- NOTE | 2017-02-16 20:08 | PDOC H&P ---
History of Present Illness Admission Date/PCP: 02/16/17 17:51 LINDSAY RICK MD Patient complains of: Sudden change in mental state History of Present Illness: SACHIN GEIGER is a 71 year old female [facility] from [facility] where she was undergoing rehabilitation after recent hospitalization for pneumonia as seen by CT scan with a tree-in-bud pattern. That hospitalization was prolonged by an episode of acute delirium triggered by a drop in her blood pressure. The family noted that she was awake alert and participate with physical therapy early this morning but after administration of some crushed pills this afternoon is when the trouble started. They say she suddenly became less responsive, they thought she was simply taking a nap but then she became pale and diaphoretic and they alerted the staff who discovered that she was indeed difficult to arouse, oxygen level was reportedly low but I don't know how much as there is no documentation that accompanies her and she was sent to the emergency department for further evaluation. On arrival here blood pressures have been low and she is currently receiving IV fluids. Unfortunately she is too lethargic to be able to provide much in the way of review of systems her medical history, she will awaken and open her eyes and follow simple short one-step commands but that's about it right now. She is oxygenating well with saturations of 100% on the monitor and not requiring BiPAP, she is in no respiratory distress at present. Her laboratory work and chest x-ray implied that her pneumonia seems to be failing Levaquin therapy as an outpatient perhaps contributing to her low blood pressures and change in mental state. As such we were asked to admit the patient for further evaluation and management. Past Medical History Cardiac Medical History: Reports: Myocardial Infarction, Hyperlipidema, Hypertension Denies: Heart Murmur Pulmonary Medical History: Reports: Asthma, Chronic Obstructive Pulmonary Disease (COPD), Pneumonia Denies: Respiratory Failure, Sleep Apnea, Tuberculosis Malignancy Medical History: Denies: Lung Cancer Psychiatric Medical History: Reports: Dementia - Alzheimer's, Depression Past Surgical History Past Surgical History: Reports: Cardiac Catheterization - Stent x2 Denies: Pacemaker Social History Lives with: Sn[facility] - [facility] Smoking Status: Former Smoker Frequency of Alcohol Use: None Hx Recreational Drug Use: No Hx Prescription Drug Abuse: No - Advance Directive Resuscitation Status: Full Code - Discussed with family at the bedside and they insist she is full code Family History Family History: None Parental Family History Reviewed: Yes Children Family History Reviewed: Yes Sibling(s) Family History Reviewed.: Yes Medication/Allergy Home Medications: Albuterol Sulfate [Ventolin Hfa] 2 puff IH Q4HP PRN 02/06/17 Aspirin [Aspirin 81 mg Chewable Tablet] 81 mg PO DAILY 02/06/17 Pravastatin Sodium [Pravachol] 20 mg PO DAILY 02/06/17 Ranitidine HCl [Zantac 150 mg Tablet] 150 mg PO DAILY 02/06/17 Tiotropium [place] [Spiriva Handihaler 5 Cap/Kit (18 Mcg/Cap)] 1 cap IH DAILY Budesonide/Formoterol Fumarate [Symbicort HFA 80-4.5 mcg Inhaler 6.9 gm] 2 puff IH BID 02/08/17 Acetaminophen [Tylenol 325 mg Tablet] 650 mg PO Q4HP PRN tablet 02/14/17 Atenolol [Tenormin 50 mg Tablet] 25 mg PO DAILY tablet 02/14/17 Benzocaine/Menthol [Chloraseptic Sore Throat Lozenge] 1 each BUCCAL Q6HP PRN lozenge 02/14/17 Benzonatate [Tessalon Perles 100 mg Capsule] 100 mg PO Q8 #21 capsule 02/14/17 Citalopram Hydrobromide [Celexa 20 mg Tablet] 10 mg PO DAILY tablet 02/14/17 Diltiazem HCl [Cardizem Cd 120 mg Capsule] 120 mg PO BID cap.sr.24h 02/14/17 Enoxaparin Sodium [Lovenox Inj 30 mg/0.3 ml Disp.syrin] 30 mg SUBCUT QAM disp.syrin 02/14/17 Guaifenesin [Mucinex Sr 600 mg Tablet.sa] 600 mg PO Q12 tablet.sa 02/14/17 Ipratropium/Albuterol Sulfate [Duoneb 3 ml Ampul] 3 ml NEB RTQ2HP PRN vial.neb 02/14/17 Levofloxacin [Levaquin 750 mg Tablet] 750 mg PO Q2D@1000 #7 tablet 02/14/17 Nystatin [Mycostatin 500,000 Unit/5 ml Susp Udcup] 500,000 unit PO QID udc Prednisone [Deltasone 20 mg Tablet] 60 mg PO DAILY #7 tablet 02/14/17 Risperidone [Risperdal 0.25 mg Tablet] 0.25 mg PO Q12 #14 tablet 02/14/17 Allergies/Adverse Reactions: aspirin [Aspirin] Allergy (Verified 04/27/14 15:52) diphenhydramine HCl [From Benadryl] Allergy (Verified 04/27/14 15:52) ibuprofen [Ibuprofen] Allergy (Verified 04/27/14 15:52) Review of Systems ROS unobtainable: Due to mental status Physical Exam Vital Signs: Temp Pulse Resp BP Pulse Ox 97.8 F 47 L 16 96/53 L 100 02/16/17 14:11 02/16/17 14:11 02/16/17 18:30 02/16/17 18:30 02/16/17 18:30 Results Laboratory Results: Labs reviewed and she has a significant leukocytosis of 21,000 with a left shift 2% bands, H&H is at her baseline, platelet count is elevated as well at 549; INR is normal; chemistries show BUN and creatinine of 35 and 1.05 which is at her baseline, glucose of 211, lactic acid of 2.3, calcium of 10.9, total bilirubin 1.6, ALT at 60, first troponin is 0.038, BNP at 10,900, the remainder of her electrolytes are unremarkable; urinalysis is unremarkable Impressions: Chest X-Ray 02/16/17 14:17 IMPRESSION: Mild increased interstitial markings compared with the prior study. Assessment & Plan - Diagnosis (1) Pneumonia Qualifiers: Pneumonia type: due to unspecified organism Laterality: unspecified laterality Lung location: unspecified part of lung Qualified Code(s) : J18.9 - Pneumonia, unspecified organism Is this a current diagnosis for this admission?: YesPlan: Family outpatient Levaquin therapy, possible HCAP. Admit to IMCU for continued IV fluids, supplemental oxygen, broad-spectrum antibiotics starting with Zithromax for atypical pathogens not covered by Levaquin, cefepime for Pseudomonas coverage and other gram-negative organisms, and vancomycin for possible MRSA. (2) Acute respiratory failure Qualifiers: Respiratory failure complication: hypoxia Qualified Code(s): J96.01 - Acute respiratory failure with hypoxia Is this a current diagnosis for this admission?: YesPlan: Continue supplemental oxygen, the patient was requiring 2 L at discharge but previous to this and not been on home O2. Most likely sequela of the above acute pathologic process. Titrate as needed to patient comfort. She is full code and will need to be intubated if she decompensates. (3) Sepsis associated hypotension Is this a current diagnosis for this admission?: YesPlan: Evidence by leukocytosis, tachypnea and a source with end organ damage with worsening hypoxia and encephalopathy. Given a bolus of lactated Ringer's now and continue IV fluids, her encephalopathy is most likely related to her hypotension as she previously demonstrated on prior admission. (4) CKD (chronic kidney disease), stage III Is this a current diagnosis for this admission?: YesPlan: Fortunately BUN and creatinine appear to be at or near baseline. She has Craig catheter in place with good urine output, we'll continue to monitor I's and O's and volume status. (5) Acute metabolic encephalopathy Is this a current diagnosis for this admission?: YesPlan: Treat as above. Hold any centrally acting agents. (6) Anemia Qualifiers: Anemia type: unspecified type Qualified Code(s): D64.9 - Anemia, unspecified Is this a current diagnosis for this admission?: YesPlan: Appears to be at baseline, we'll have to follow H&H to evaluate for delusional effect after the IV fluids given. - Time Time Spent: Greater than 70 Minutes Medications reviewed and adjusted accordingly: Yes - Inpatient Certification Medical Necessity: Failure to Improve With Outpatient Therapy, Significant Comorbidiites Make Outpatient Treatment Too Risky, Need For IV Fluids, Need for IV Antibiotics, Risk of Complication if Not Cared For in Hospital - Plan Summary Plan Summary: Need to clarify the current pharmaceutical regimen from the facility, unfortunately they did not send any paperwork with her. It is not clear to me what medications were crushed and administered this afternoon but seems to correlate with the sudden decline. That being said, laboratory work and imaging indicates a worsening of her pneumonia as well.
[2017-02-16] MEDS: IPRATROPIUM/ALBUTEROL 0.5-2.5 MG/3 ML AMPUL NEB SCH (20:25)
[2017-02-16] MEDS: CEFEPIME 2 GM/D5W RTU 50 ML IV SCH (22:00)
[2017-02-16 23:16] LABS: VENOUS BLOOD BASE EXCESS -1.1 mmol/L; VENOUS BLOOD HCO3 24.5 mmol/L (20-32); VENOUS BLOOD PCO2 45.2 mmHg (35-63); VENOUS BLOOD PH 7.35 (7.30-7.42)
[2017-02-17] MEDS ORDERED: CEFEPIME 2 GM/D5W RTU 2 GM/50 ML RTUPB IV ONE (00:50)
[2017-02-17] MEDS ORDERED: AZITHROMYCIN INJ 500 MG VIAL IV ONE (00:50)
[2017-02-17] MEDS: AZITHROMYCIN 500 MG in DEXTROSE 5%-WATER 250 ML IV SCH ×2 (01:00→01:29)
[2017-02-17] MEDS: CEFEPIME 2 GM/D5W RTU 50 ML IV SCH (01:29)
[2017-02-17 03:13] LABS: VENOUS BLOOD HCO3 26.5 mmol/L (20-32); VENOUS BLOOD PCO2 40.8 mmHg (35-63); VENOUS BLOOD PH 7.43 (7.30-7.42)
[2017-02-17 03:17] LABS: HEMATOCRIT 22.5 % (36.0-47.0); HGB HCT DIFFERENCE 0.9; MEAN CORPUSCULAR HGB CONC 34.8 g/dL (32.0-36.0); MEAN CORPUSCULAR VOLUME 86 fl (80-97); RED BLOOD COUNT 2.61 10^6/uL (3.72-5.28); RED CELL DISTRIBUTION WIDTH 14.2 % (11.5-14.0); WHITE BLOOD COUNT 10.3 10^3/uL (4.0-10.5)
[2017-02-17 03:26] LABS: ALANINE AMINOTRANSFERASE 47 U/L (9-52); ALBUMIN 2.7 g/dL (3.5-5.0); ALKALINE PHOSPHATASE 69 U/L (38-126); ANION GAP 9 (5-19); ASPARTATE AMINO TRANSFERASE 24 U/L (14-36); BILIRUBIN,DIRECT 0.3 mg/dL (0.0-0.4); BLOOD UREA NITROGEN 30 mg/dL (7-20); CALCIUM 9.8 mg/dL (8.4-10.2); CARBON DIOXIDE 25 mmol/L (22-30); CHLORIDE 111 mmol/L (98-107); CREATININE RESULT 0.84 mg/dL (0.52-1.25); GLUCOSE 117 mg/dL (75-110); SODIUM 144.8 mmol/L (137-145); TOTAL PROTEIN 5.1 g/dL (6.3-8.2)
[2017-02-17 03:30] LABS: HEMOGLOBIN 7.8 g/dL (12.0-15.5)
[2017-02-17 03:40] LABS: TROPONIN I < 0.012 ng/mL
[2017-02-17 03:57] LABS: BAND NEUTROPHILS % (MANUAL) 3 % (3-5); BASOPHILS % (MANUAL) 1 % (0-2); EOSINOPHILS % (MANUAL) 0 % (0-6); LYMPHOCYTES % (MANUAL) 11 % (13-45); TOTAL CELLS COUNTED 100
[2017-02-17 04:03] LABS: ANISOCYTOSIS SLIGHT; OVALOCYTES SLIGHT; POIKILOCYTOSIS 1+; POLYCHROMASIA 1+; TOXIC GRANULATION 1+
[2017-02-17] MEDS ORDERED: NORMAL SALINE 250 ML IV PRN ×2 (07:32)
[2017-02-17] MEDS ORDERED: FUROSEMIDE INJ/PF 20 MG/2 ML SDV IV PRN (07:32)
[2017-02-17] MEDS ORDERED: ENOXAPARIN SODIUM INJ 30 MG/0.3 ML DISP.SYRIN SUBCUT SCH (08:00)
[2017-02-17] MEDS: IPRATROPIUM/ALBUTEROL 0.5-2.5 MG/3 ML AMPUL NEB SCH ×3 (08:44→19:27)
[2017-02-17 09:55] LABS: FOLATE 6.03 ng/mL (>2.76)
[2017-02-17] MEDS: FAMOTIDINE INJ/PF 20 MG/2 ML SDV IV SCH (10:13)
[2017-02-17] MEDS: CEFEPIME HCL 2 GM in DEXTROSE 5%-WATER 50 ML IV SCH (10:13)
--- NOTE | 2017-02-17 10:22 | EKG REPORT ---
SEVERITY:- ABNORMAL ECG - JUNCTIONAL ESCAPE RHYTHM BORDERLINE T ABNORMALITIES, ANTERIOR LEADS : Confirmed by: Manuel Brooks MD 17-Feb-2017 10:21:11
--- NOTE | 2017-02-17 13:57 | PDOC PROGRESS REPORT ---
Subjective Progress Note for:: 02/17/17 Subjective:: Reason for visit: Follow-up hypoxic respiratory failure, pneumonia, metabolic encephalopathy Hospital course: SACHIN GEIGER is a 71 year old female presents from [facility] facility where she was undergoing rehabilitation after recent hospitalization for pneumonia as seen by CT scan with a tree-in-bud pattern. That hospitalization was prolonged by an episode of acute delirium triggered by a drop in her blood pressure. The family noted that she was awake alert and participate with physical therapy early this morning but after administration of some crushed pills this afternoon is when the trouble started. They say she suddenly became less responsive, they thought she was simply taking a nap but then she became pale and diaphoretic and they alerted the staff who discovered that she was indeed difficult to arouse, oxygen level was reportedly low but I don't know how much as there is no documentation that accompanies her and she was sent to the emergency department for further evaluation. On arrival here blood pressures have been low and she is currently receiving IV fluids. Unfortunately she is too lethargic to be able to provide much in the way of review of systems her medical history, she will awaken and open her eyes and follow simple short one-step commands but that's about it right now. She is oxygenating well with saturations of 100% on the monitor and not requiring BiPAP, she is in no respiratory distress at present. Her laboratory work and chest x-ray implied that her pneumonia seems to be failing Levaquin therapy as an outpatient perhaps contributing to her low blood pressures and change in mental state. As such we were asked to admit the patient for further evaluation and management. The patient's overall condition improved through the night as her blood pressure improved. She did spend most of the night on BiPAP therapy as well. In general she is more awake and alert this morning and communicative than she was yesterday. She now reports a fall while at the facility landing hard onto her right side and nurses describe a large area of bruising on her right flank tracking into her right groin and perineum. Of note, her hemoglobin dropped overnight to 7.7. Subjective: She denies chest pain, palpitations, nausea, vomiting, fever, chills. She continues to report breathlessness with minimal exertion, cough productive of phlegm and general weakness. ROS: per HPI plus a total of 10 systems reviewed, pertinent positives and negatives noted above, remaining systems negative. Physical Exam Vital Signs: Temp Pulse Resp BP Pulse Ox 98.6 F 100 20 158/77 H 96 02/17/17 11:37 02/17/17 11:37 02/17/17 11:37 02/17/17 11:37 02/17/17 11:37 Pulse Oximeter Continuous Start: 02/16/17 18: 47 Freq: RTQ4 Status: Active Document 02/17/17 12:00 LDA (Rec: 02/17/17 13:12 LDA [email or web address]) Pulse Oximetry Assessment Equipment Usage Equipment Standby Continuous SpO2 Machine # 5 Intake & Output 02/16/17 02/17/17 02/18/17 06:59 06:59 06:59 Intake Total 5 0 Output Total 400 Balance -395 0 Weight 70.2 kg EXAM GENERAL: NAD; well developed, well nourished; mild obese; alert and oriented to person, place, situation and remembers me from her last admission HEENT: normocephalic, atraumatic; no conjunctival injection, no scleral icterus ; oral mucosa moist; RESPIRATORY: no accessory muscle use, mild increased WOB, good air entry bilaterally; no wheezes, rales, rhonchi; course bilateral inspiratory crackles CARDIO: no JVD; RRR; no systolic murmur; tachycardia GI: soft; nondistended; normal bowel sounds; no hepato spleno megaly; no rebound, rigidity, guarding VASCULAR: no carotid bruit; no abdominal bruit; no pallor; 2+ radial, DP pulse ; normal capillary refill EXTREMITIES: no calf tender; no palpable cords in calf; no clubbing, cyanosis , pedal edema PSYCH: normal affect, normal mood SKIN: warm; moist; no petechiae; no telengectasias; no jaundice; large area of ecchymosis of approximately 2-3 days age I color right flank encompassing portion of the right hip tracking into the right inguinal crease stopping at the mons pubis with a firm, palpable sausage-shaped area of approximately 10 cm just proximal to the inguinal crease Results Laboratory Results: 02/17/17 03:05 02/17/17 03:05 02/16/17 02/16/17 02/17/17 19:53 23:09 03:05 WBC 10.3 RBC 2.61 L Hgb 7.8 L Hct 22.5 L MCV 86 MCH 30.0 MCHC 34.8 RDW 14.2 H Plt Count 367 Seg Neutrophils % Not Reportable Lymphocytes % Not Reportable Monocytes % Not Reportable Eosinophils % Not Reportable Basophils % Not Reportable Absolute Neutrophils Not Reportable Absolute Lymphocytes Not Reportable Absolute Monocytes Not Reportable Absolute Eosinophils Not Reportable Absolute Basophils Not Reportable Retic Count (auto) Absolute Retic VBG pH 7.35 VBG pCO2 45.2 VBG HCO3 24.5 VBG Base Excess -1.1 Sodium Potassium Chloride Carbon Dioxide Anion Gap BUN Creatinine Est GFR ( Amer) Est GFR (Non-Af Amer) Glucose Lactic Acid 1.6 Calcium Iron TIBC % Saturation Ferritin Total Bilirubin AST ALT Alkaline Phosphatase Total Protein Albumin Vitamin B12 Folate Blood Type Antibody Screen 02/17/17 02/17/17 02/17/17 03:05 03:05 06:30 WBC RBC Hgb Hct MCV MCH MCHC RDW Plt Count Seg Neutrophils % Lymphocytes % Monocytes % Eosinophils % Basophils % Absolute Neutrophils Absolute Lymphocytes Absolute Monocytes Absolute Eosinophils Absolute Basophils Retic Count (auto) Absolute Retic VBG pH 7.43 H VBG pCO2 40.8 VBG HCO3 26.5 VBG Base Excess 2.0 Sodium 144.8 Potassium 4.0 Chloride 111 H Carbon Dioxide 25 Anion Gap 9 BUN 30 H Creatinine 0.84 Est GFR ( Amer) > 60 Est GFR (Non-Af Amer) > 60 Glucose 117 H Lactic Acid Calcium 9.8 Iron TIBC % Saturation Ferritin Total Bilirubin 1.0 AST 24 ALT 47 Alkaline Phosphatase 69 Total Protein 5.1 L Albumin 2.7 L Vitamin B12 Folate Blood Type A POSITIVE Antibody Screen NEGATIVE 02/17/17 02/17/17 08:13 08:13 WBC RBC Hgb Hct MCV MCH MCHC RDW Plt Count Seg Neutrophils % Lymphocytes % Monocytes % Eosinophils % Basophils % Absolute Neutrophils Absolute Lymphocytes Absolute Monocytes Absolute Eosinophils Absolute Basophils Retic Count (auto) 3.28 H Absolute Retic 0.092 VBG pH VBG pCO2 VBG HCO3 VBG Base Excess Sodium Potassium Chloride Carbon Dioxide Anion Gap BUN Creatinine Est GFR ( Amer) Est GFR (Non-Af Amer) Glucose Lactic Acid Calcium Iron 36.0 L TIBC 253 % Saturation 14 Ferritin 291.00 H Total Bilirubin AST ALT Alkaline Phosphatase Total Protein Albumin Vitamin B12 783.0 Folate 6.03 Blood Type Antibody Screen 02/16/17 02/17/17 02/17/17 23:09 03:05 09:35 Troponin I 0.012 < 0.012 < 0.012 NT-Pro-B Natriuret Pep 4100 H Impressions: Chest X-Ray 02/17/17 07:43 IMPRESSION: NO ACUTE RADIOGRAPHIC FINDING IN THE CHEST. Assessment & Plan - Diagnosis (1) Pneumonia Qualifiers: Pneumonia type: due to unspecified organism Laterality: unspecified laterality Lung location: unspecified part of lung Qualified Code(s) : J18.9 - Pneumonia, unspecified organism Is this a current diagnosis for this admission?: Yes (2) Acute respiratory failure Qualifiers: Respiratory failure complication: hypoxia Qualified Code(s): J96.01 - Acute respiratory failure with hypoxia Is this a current diagnosis for this admission?: Yes (3) Sepsis associated hypotension Is this a current diagnosis for this admission?: Yes (4) CKD (chronic kidney disease), stage III Is this a current diagnosis for this admission?: Yes (5) Acute metabolic encephalopathy Is this a current diagnosis for this admission?: Yes (6) Anemia Qualifiers: Anemia type: unspecified type Qualified Code(s): D64.9 - Anemia, unspecified Is this a current diagnosis for this admission?: YesPlan: H&H with a significant drop overnight with partial delusional effect after the IV fluids given but also worrisome for developing retroperitoneal bleed and hematoma in the lower pelvis. all heparin products will be discontinued including DVT prophylaxis; transfuse 2 U PRBCs after discussing R&B with her she is willing to accept those risks and proceed with transfusion. continue to trend H/H, if drops again will get ct pelvis to further evaluate. - Time Time Spent with patient: 35 or more minutes Medications reviewed and adjusted accordingly: Yes Anticipated discharge: SNF Within: within 72 hours - Plan Summary Plan Summary: Otherwise continue broad-spectrum antibiotics and other treatments as noted in the H&P. Continue usual home medicines for chronic conditions.
[2017-02-17] MEDS ORDERED: VANCOMYCIN HCL 750 MG in DEXTROSE 5%-WATER 250 ML IV SCH (18:00)
[2017-02-18] MEDS: VANCOMYCIN HCL 750 MG in DEXTROSE 5%-WATER 250 ML IV SCH ×2 (00:09→00:21)
[2017-02-18] MEDS: CEFEPIME HCL 2 GM in DEXTROSE 5%-WATER 50 ML IV SCH ×3 (02:07→21:16)
[2017-02-18] MEDS: FAMOTIDINE INJ/PF 20 MG/2 ML SDV IV SCH ×3 (02:13→21:16)
[2017-02-18 04:00] LABS: HEMATOCRIT 35.7 % (36.0-47.0); HGB HCT DIFFERENCE 0.6; MEAN CORPUSCULAR HEMOGLOBIN 29.4 pg (27.0-33.4); MEAN CORPUSCULAR VOLUME 86 fl (80-97); RED BLOOD COUNT 4.13 10^6/uL (3.72-5.28); WHITE BLOOD COUNT 14.1 10^3/uL (4.0-10.5)
[2017-02-18 04:19] LABS: HEMOGLOBIN 12.1 g/dL (12.0-15.5)
[2017-02-18 04:24] LABS: BAND NEUTROPHILS % (MANUAL) 1 % (3-5); BASOPHILS % (MANUAL) 0 % (0-2); EOSINOPHILS % (MANUAL) 0 % (0-6); LYMPHOCYTES % (MANUAL) 18 % (13-45); TOTAL CELLS COUNTED 100
[2017-02-18 04:27] LABS: POLYCHROMASIA SLIGHT; TOXIC VACUOLATION PRESENT
[2017-02-18 04:28] LABS: PLATELET CLUMPS PRESENT
[2017-02-18 04:43] LABS: ALANINE AMINOTRANSFERASE 51 U/L (9-52); ALBUMIN 3.7 g/dL (3.5-5.0); ALKALINE PHOSPHATASE 93 U/L (38-126); ANION GAP 13 (5-19); ASPARTATE AMINO TRANSFERASE 32 U/L (14-36); BILIRUBIN,DIRECT 0.6 mg/dL (0.0-0.4); BILIRUBIN,TOTAL 3.6 mg/dL (0.2-1.3); BLOOD UREA NITROGEN 22 mg/dL (7-20); CALCIUM 10.4 mg/dL (8.4-10.2); CARBON DIOXIDE 30 mmol/L (22-30); CHLORIDE 101 mmol/L (98-107); CREATININE RESULT 0.76 mg/dL (0.52-1.25); GLUCOSE 111 mg/dL (75-110); POTASSIUM 3.4 mmol/L (3.6-5.0); SODIUM 143.7 mmol/L (137-145); TOTAL PROTEIN 6.6 g/dL (6.3-8.2)
[2017-02-18] MEDS ORDERED: BENZOCAINE/MENTHOL SORE THROAT LOZENGE BUCCAL PRN (07:34)
[2017-02-18] MEDS: IPRATROPIUM/ALBUTEROL 0.5-2.5 MG/3 ML AMPUL NEB SCH ×3 (08:25→20:35)
[2017-02-18] MEDS: CITALOPRAM HYDROBROMIDE 20 MG TABLET PO SCH (09:25)
[2017-02-18] MEDS: BUDESONIDE/FORMOTEROL 80-4.5 MCG 60 PUFF/6.9 GM MDI IH SCH ×2 (09:36→17:33)
[2017-02-18] MEDS ORDERED: DILTIAZEM HCL 120 MG CAP.SR.24H PO SCH (10:00)
[2017-02-18] MEDS ORDERED: ATENOLOL 50 MG TABLET PO SCH (10:00)
--- NOTE | 2017-02-18 13:19 | PDOC PROGRESS REPORT ---
Subjective Progress Note for:: 02/18/17 Subjective:: Reason for visit: Follow-up hypoxic respiratory failure, pneumonia, metabolic encephalopathy Hospital course: SACHIN GEIGER is a 71 year old female presents from alf facility where she was undergoing rehabilitation after recent hospitalization for pneumonia as seen by CT scan with a tree-in-bud pattern. That hospitalization was prolonged by an episode of acute delirium triggered by a drop in her blood pressure. The family noted that she was awake alert and participate with physical therapy early this morning but after administration of some crushed pills this afternoon is when the trouble started. They say she suddenly became less responsive, they thought she was simply taking a nap but then she became pale and diaphoretic and they alerted the staff who discovered that she was indeed difficult to arouse, oxygen level was reportedly low but I don't know how much as there is no documentation that accompanies her and she was sent to the emergency department for further evaluation. On arrival here blood pressures have been low and she is currently receiving IV fluids. Unfortunately she is too lethargic to be able to provide much in the way of review of systems her medical history, she will awaken and open her eyes and follow simple short one-step commands but that's about it right now. She is oxygenating well with saturations of 100% on the monitor and not requiring BiPAP, she is in no respiratory distress at present. Her laboratory work and chest x-ray implied that her pneumonia seems to be failing Levaquin therapy as an outpatient perhaps contributing to her low blood pressures and change in mental state. As such we were asked to admit the patient for further evaluation and management. The patient's overall condition improved as her blood pressure improved. She spent most of the first night on BiPAP therapy but hasn't required it since. She reports a fall while at the facility landing hard onto her right side and nurses describe a large area of bruising on her right flank tracking into her right groin and perineum. Of note, her hemoglobin dropped to 7.7 and required transfusion of 2U of PRBCs with stabilization of her H/H. Subjective: She denies chest pain, palpitations, nausea, vomiting, fever, chills. She continues to report breathlessness with minimal exertion, cough productive of phlegm and general weakness. ROS: per HPI plus a total of 10 systems reviewed, pertinent positives and negatives noted above, remaining systems negative. Physical Exam Vital Signs: Temp Pulse Resp BP Pulse Ox 98.3 F 105 H 22 H 166/94 H 94 02/18/17 04:00 02/18/17 08:25 02/18/17 08:25 02/18/17 07:57 02/18/17 08:25 Pulse Oximeter Continuous Start: 02/16/17 18: 47 Freq: RTQ4 Status: Active Document 02/18/17 11:10 LDA (Rec: 02/18/17 11:11 LDA [email or web address]) Pulse Oximetry Assessment Equipment Usage Equipment Standby Continuous SpO2 Machine # 5 Intake & Output 02/17/17 02/18/17 02/19/17 06:59 06:59 06:59 Intake Total 5 1490 Output Total 400 3500 Balance -395 Weight 70.2 kg 70.8 kg EXAM GENERAL: NAD; well developed, well nourished; mild obese; alert and oriented to person, place, situation and remembers me from her last admission; color is better, she is more alert and interactive again today HEENT: normocephalic, atraumatic; no conjunctival injection, no scleral icterus ; oral mucosa moist; RESPIRATORY: no accessory muscle use, mild increased WOB, good air entry bilaterally; no wheezes, rales, rhonchi; course bilateral inspiratory crackles CARDIO: no JVD; RRR; no systolic murmur; tachycardia GI: soft; nondistended; normal bowel sounds; no rebound, rigidity, guarding VASCULAR: no carotid bruit; no abdominal bruit; no pallor; 2+ radial, DP pulse ; normal capillary refill EXTREMITIES: no calf tender; no palpable cords in calf; no clubbing, cyanosis ; trace pedal edema PSYCH: normal affect, normal mood SKIN: warm; moist; no petechiae; no telengectasias; no jaundice; large area of ecchymosis right flank encompassing portion of the right hip tracking into the right inguinal crease stopping at the mons pubis with a firm, palpable sausage- shaped area of approximately 10 cm just proximal to the inguinal crease without erythema or heat to touch Results Laboratory Results: 02/18/17 03:43 02/18/17 03:43 02/17/17 02/18/17 02/18/17 06:30 03:43 03:43 WBC 14.1 H RBC 4.13 Hgb 12.1 D Hct 35.7 L MCV 86 MCH 29.4 MCHC 34.0 RDW 14.0 Plt Count 429 Seg Neutrophils % Not Reportable Lymphocytes % Not Reportable Monocytes % Not Reportable Eosinophils % Not Reportable Basophils % Not Reportable Absolute Neutrophils Not Reportable Absolute Lymphocytes Not Reportable Absolute Monocytes Not Reportable Absolute Eosinophils Not Reportable Absolute Basophils Not Reportable Sodium 143.7 Potassium 3.4 L Chloride 101 Carbon Dioxide 30 Anion Gap 13 BUN 22 H Creatinine 0.76 Est GFR ( Amer) > 60 Est GFR (Non-Af Amer) > 60 Glucose 111 H Calcium 10.4 H Total Bilirubin 3.6 H AST 32 ALT 51 Alkaline Phosphatase 93 Total Protein 6.6 Albumin 3.7 Blood Type A POSITIVE Antibody Screen NEGATIVE 02/17/17 03:00 Nasophary ([facility] Only) MRSA Surveillance Culture - Final NO MRSA RECOVERED 02/16/17 02/17/17 02/17/17 23:09 03:05 09:35 Troponin I 0.012 < 0.012 < 0.012 NT-Pro-B Natriuret Pep 4100 H Assessment & Plan - Diagnosis (1) Pneumonia Qualifiers: Pneumonia type: due to unspecified organism Laterality: unspecified laterality Lung location: unspecified part of lung Qualified Code(s) : J18.9 - Pneumonia, unspecified organism Is this a current diagnosis for this admission?: Yes (2) Acute respiratory failure Qualifiers: Respiratory failure complication: hypoxia Qualified Code(s): J96.01 - Acute respiratory failure with hypoxia Is this a current diagnosis for this admission?: Yes (3) Sepsis associated hypotension Is this a current diagnosis for this admission?: Yes (4) CKD (chronic kidney disease), stage III Is this a current diagnosis for this admission?: Yes (5) Acute metabolic encephalopathy Is this a current diagnosis for this admission?: Yes (6) Anemia Qualifiers: Anemia type: unspecified type Qualified Code(s): D64.9 - Anemia, unspecified Is this a current diagnosis for this admission?: Yes - Time Time Spent with patient: 25-34 minutes Anticipated discharge: SNF Within: within 48 hours - Plan Summary Plan Summary: Overall condition somewhat improved again today. Blood pressures actually on the high side with some tachycardia so we will resume her beta goldy and monitor for effect. She is very sensitive to drops in her blood pressure resulting in moderate to severe metabolic encephalopathy. Her MRSA screen is negative so will stop the vancomycin. Continue other antibiotics. Increase activity with physical therapy.
[2017-02-18] MEDS: ATENOLOL 50 MG TABLET PO SCH (18:29)
[2017-02-18] MEDS: DILTIAZEM HCL 120 MG CAP.SR.24H PO SCH (18:34)
[2017-02-18] MEDS: AZITHROMYCIN 500 MG in DEXTROSE 5%-WATER 250 ML IV SCH (21:23)
[2017-02-18] MEDS ORDERED: VANCOMYCIN HCL 750 MG in DEXTROSE 5%-WATER 250 ML IV SCH (22:00)
[2017-02-19] MEDS: DILTIAZEM HCL 120 MG CAP.SR.24H PO SCH ×2 (06:08→17:07)
[2017-02-19 06:19] LABS: HEMATOCRIT 33.7 % (36.0-47.0); HEMOGLOBIN 11.6 g/dL (12.0-15.5); HGB HCT DIFFERENCE 1.1; MEAN CORPUSCULAR HEMOGLOBIN 30.3 pg (27.0-33.4); MEAN CORPUSCULAR HGB CONC 34.5 g/dL (32.0-36.0); MEAN CORPUSCULAR VOLUME 88 fl (80-97); RED BLOOD COUNT 3.85 10^6/uL (3.72-5.28); RED CELL DISTRIBUTION WIDTH 14.4 % (11.5-14.0); WHITE BLOOD COUNT 11.5 10^3/uL (4.0-10.5)
[2017-02-19 06:31] LABS: ALANINE AMINOTRANSFERASE 45 U/L (9-52); ALBUMIN 3.3 g/dL (3.5-5.0); ALKALINE PHOSPHATASE 78 U/L (38-126); ANION GAP 8 (5-19); ASPARTATE AMINO TRANSFERASE 24 U/L (14-36); BILIRUBIN,DIRECT 0.2 mg/dL (0.0-0.4); BILIRUBIN,TOTAL 1.6 mg/dL (0.2-1.3); BLOOD UREA NITROGEN 28 mg/dL (7-20); CALCIUM 10.6 mg/dL (8.4-10.2); CARBON DIOXIDE 33 mmol/L (22-30); CHLORIDE 101 mmol/L (98-107); CREATININE RESULT 0.73 mg/dL (0.52-1.25); GLUCOSE 101 mg/dL (75-110); POTASSIUM 3.8 mmol/L (3.6-5.0); SODIUM 142.4 mmol/L (137-145)
[2017-02-19 07:24] LABS: ANISOCYTOSIS SLIGHT; BAND NEUTROPHILS % (MANUAL) 2 % (3-5); BASOPHILS % (MANUAL) 0 % (0-2); EOSINOPHILS % (MANUAL) 1 % (0-6); LYMPHOCYTES % (MANUAL) 16 % (13-45); POLYCHROMASIA SLIGHT; TOTAL CELLS COUNTED 100
[2017-02-19] MEDS: IPRATROPIUM/ALBUTEROL 0.5-2.5 MG/3 ML AMPUL NEB SCH ×3 (08:44→20:22)
[2017-02-19] MEDS: BUDESONIDE/FORMOTEROL 80-4.5 MCG 60 PUFF/6.9 GM MDI IH SCH ×2 (10:24→17:08)
[2017-02-19] MEDS: FAMOTIDINE INJ/PF 20 MG/2 ML SDV IV SCH ×2 (10:30→22:49)
[2017-02-19] MEDS: CEFEPIME HCL 2 GM in DEXTROSE 5%-WATER 50 ML IV SCH ×2 (10:31→22:49)
[2017-02-19] MEDS: CITALOPRAM HYDROBROMIDE 20 MG TABLET PO SCH (10:31)
[2017-02-19] MEDS ORDERED: RISPERIDONE 0.25 MG TABLET PO ONE (12:30)
[2017-02-19 12:32] LABS: PATH REVIEW PATHOLOGIST REVIEWED
--- NOTE | 2017-02-19 16:11 | PDOC PROGRESS REPORT ---
Subjective Progress Note for:: 02/19/17 Subjective:: Reason for visit: Follow-up hypoxic respiratory failure, pneumonia, metabolic encephalopathy Hospital course: SACHIN GEIGER is a 71 year old female presents from long term facility where she was undergoing rehabilitation after recent hospitalization for pneumonia as seen by CT scan with a tree-in-bud pattern. That hospitalization was prolonged by an episode of acute delirium triggered by a drop in her blood pressure. The family noted that she was awake alert and participate with physical therapy but after administration of some crushed pills the trouble started. They say she suddenly became less responsive, they thought she was simply taking a nap but then she became pale and diaphoretic and they alerted the staff who discovered that she was indeed difficult to arouse, oxygen level was reportedly low but I don't know how much as there is no documentation that accompanies her and she was sent to the emergency department for further evaluation. On arrival here blood pressures have been low and she required IV fluids. Unfortunately she was too lethargic to provide much in the way of review of systems or medical history, she would awaken and open her eyes and follow simple short one-step commands but that's about it. She is oxygenating well with saturations of 100% on the monitor and not requiring BiPAP, she is in no respiratory distress Her laboratory work and chest x-ray implied that her pneumonia seems to be failing Levaquin therapy as an outpatient, perhaps contributing to her low blood pressures and change in mental state. As such we were asked to admit the patient for further evaluation and management. The patient's overall condition improved as her blood pressure improved. She spent most of the first night on BiPAP therapy but hasn't required it since. She reports a fall while at the facility landing hard onto her right side and nurses describe a large area of bruising on her right flank tracking into her right groin and perineum. Of note, her hemoglobin dropped to 7.7 and required transfusion of 2U of PRBCs with stabilization of her H/H. Subjective: her mental state continues to wax and wane, this morning it is not good with worsening confusion, paranoia and fear, tearful and difficult to console and I can't really get a meaningful ROS out of her. ROS: unobtainable due to mental state. Physical Exam Vital Signs: Temp Pulse Resp BP Pulse Ox 98.4 F 82 20 123/60 94 02/19/17 13:40 02/19/17 14:44 02/19/17 14:44 02/19/17 13:40 02/19/17 14:44 Intake & Output 02/18/17 02/19/17 02/20/17 06:59 06:59 06:59 Intake Total 1490 1130 Output Total 3500 650 -2009 480 Weight 70.8 kg 71.3 kg EXAM GENERAL: mild to mod emotional distress; well developed, well nourished; mild obese; alert but speaks in soft low voice and won't make eye contact with me today, doesn't seem to remember me either which is significant change from day before HEENT: normocephalic, atraumatic; no conjunctival injection, no scleral icterus ; oral mucosa moist; RESPIRATORY: no accessory muscle use, mild increased WOB, good air entry bilaterally; no wheezes, rales, or rhonchi; course bilateral inspiratory crackles CARDIO: no JVD; RRR; no systolic murmur; no tachycardia GI: soft; nondistended; normal bowel sounds; no rebound, rigidity, guarding VASCULAR: 2+ radial, DP pulse; normal capillary refill EXTREMITIES: no calf tender; no palpable cords in calf; no clubbing, cyanosis ; trace pedal edema PSYCH: normal affect, normal mood SKIN: warm; moist; no petechiae; no telengectasias; no jaundice; large area of ecchymosis right flank encompassing portion of the right hip tracking into the right inguinal crease stopping at the mons pubis with a firm, palpable sausage- shaped area of approximately 10 cm just proximal to the inguinal crease without erythema or heat to touch Results Laboratory Results: 02/19/17 05:32 02/19/17 05:32 02/17/17 02/19/17 02/19/17 08:13 05:32 05:32 WBC 11.5 H RBC 3.85 Hgb 11.6 L Hct 33.7 L MCV 88 MCH 30.3 MCHC 34.5 RDW 14.4 H Plt Count 420 Seg Neutrophils % Not Reportable Lymphocytes % Not Reportable Monocytes % Not Reportable Eosinophils % Not Reportable Basophils % Not Reportable Absolute Neutrophils Not Reportable Absolute Lymphocytes Not Reportable Absolute Monocytes Not Reportable Absolute Eosinophils Not Reportable Absolute Basophils Not Reportable Sodium 142.4 Potassium 3.8 Chloride 101 Carbon Dioxide 33 H Anion Gap 8 BUN 28 H Creatinine 0.73 Est GFR ( Amer) > 60 Est GFR (Non-Af Amer) > 60 Glucose 101 Calcium 10.6 H Transferrin 190 L Total Bilirubin 1.6 H AST 24 ALT 45 Alkaline Phosphatase 78 Total Protein 6.0 L Albumin 3.3 L 02/16/17 02/17/17 02/17/17 23:09 03:05 09:35 Troponin I 0.012 < 0.012 < 0.012 NT-Pro-B Natriuret Pep 4100 H labs reviewed, see above Impressions: Chest X-Ray 02/17/17 07:43 IMPRESSION: NO ACUTE RADIOGRAPHIC FINDING IN THE CHEST. Status: Imported from PACS Assessment & Plan - Diagnosis (1) Pneumonia Qualifiers: Pneumonia type: due to unspecified organism Laterality: unspecified laterality Lung location: unspecified part of lung Qualified Code(s) : J18.9 - Pneumonia, unspecified organism Is this a current diagnosis for this admission?: YesPlan: Failing outpatient Levaquin therapy, possible HCAP. Admitted to IM for IV fluids, supplemental oxygen, broad-spectrum antibiotics starting with Zithromax for atypical pathogens not covered by Levaquin, cefepime for Pseudomonas coverage and other gram-negative organisms, and initially vancomycin for possible MRSA but her screen came back negative today so will stop the vanc. (2) Acute respiratory failure Qualifiers: Respiratory failure complication: hypoxia Qualified Code(s): J96.01 - Acute respiratory failure with hypoxia Is this a current diagnosis for this admission?: Yes (3) Sepsis associated hypotension Is this a current diagnosis for this admission?: Yes (4) CKD (chronic kidney disease), stage III Is this a current diagnosis for this admission?: Yes (5) Acute metabolic encephalopathy Is this a current diagnosis for this admission?: YesPlan: worse. resume risperdal and monitor for effect. d/c zaman as she describes the need to urinate even with it in place; don't want her to get hold of it while confused and create worse problem. (6) Anemia Qualifiers: Anemia type: unspecified type Qualified Code(s): D64.9 - Anemia, unspecified Is this a current diagnosis for this admission?: YesPlan: H&H with a significant drop overnight with partial delusional effect after the IV fluids given but also worrisome for developing retroperitoneal bleed and hematoma in the lower pelvis. all heparin products will be discontinued including DVT prophylaxis; transfuse 2 U PRBCs after discussing R&B with her she is willing to accept those risks and proceed with transfusion. continue to trend H/H, if drops again will get ct pelvis to further evaluate. (7) Hematoma Is this a current diagnosis for this admission?: YesPlan: as above - Time Time Spent with patient: 25-34 minutes Anticipated discharge: SNF Within: within 72 hours
[2017-02-19] MEDS: ATENOLOL 50 MG TABLET PO SCH (17:07)
[2017-02-19] MEDS: AZITHROMYCIN 250 MG TABLET PO SCH (22:48)
[2017-02-19] MEDS: RISPERIDONE 0.25 MG TABLET PO SCH (22:49)
[2017-02-20] MEDS: DILTIAZEM HCL 120 MG CAP.SR.24H PO SCH ×2 (05:42→18:22)
[2017-02-20 06:45] LABS: HEMATOCRIT 36.2 % (36.0-47.0); HEMOGLOBIN 12.5 g/dL (12.0-15.5); HGB HCT DIFFERENCE 1.3; MEAN CORPUSCULAR HEMOGLOBIN 30.4 pg (27.0-33.4); MEAN CORPUSCULAR HGB CONC 34.5 g/dL (32.0-36.0); MEAN CORPUSCULAR VOLUME 88 fl (80-97); RED BLOOD COUNT 4.11 10^6/uL (3.72-5.28); RED CELL DISTRIBUTION WIDTH 14.1 % (11.5-14.0); WHITE BLOOD COUNT 10.1 10^3/uL (4.0-10.5)
[2017-02-20 06:58] LABS: ALANINE AMINOTRANSFERASE 41 U/L (9-52); ALBUMIN 3.5 g/dL (3.5-5.0); ALKALINE PHOSPHATASE 92 U/L (38-126); ANION GAP 11 (5-19); ASPARTATE AMINO TRANSFERASE 25 U/L (14-36); BILIRUBIN,DIRECT 0.5 mg/dL (0.0-0.4); BLOOD UREA NITROGEN 29 mg/dL (7-20); CALCIUM 10.6 mg/dL (8.4-10.2); CARBON DIOXIDE 30 mmol/L (22-30); CHLORIDE 104 mmol/L (98-107); CREATININE RESULT 0.75 mg/dL (0.52-1.25); GLUCOSE 99 mg/dL (75-110); POTASSIUM 3.9 mmol/L (3.6-5.0); SODIUM 144.9 mmol/L (137-145); TOTAL PROTEIN 6.4 g/dL (6.3-8.2)
[2017-02-20 07:10] LABS: BAND NEUTROPHILS % (MANUAL) 2 % (3-5); BASOPHILS % (MANUAL) 0 % (0-2); EOSINOPHILS % (MANUAL) 2 % (0-6); LYMPHOCYTES % (MANUAL) 15 % (13-45); TOTAL CELLS COUNTED 100
[2017-02-20 07:11] LABS: ANISOCYTOSIS SLIGHT; OVALOCYTES SLIGHT; POIKILOCYTOSIS SLIGHT; POLYCHROMASIA SLIGHT; SCHISTOCYTES SLIGHT; TOXIC GRANULATION SLIGHT
[2017-02-20] MEDS: IPRATROPIUM/ALBUTEROL 0.5-2.5 MG/3 ML AMPUL NEB SCH ×3 (07:55→21:20)
[2017-02-20] MEDS: FAMOTIDINE INJ/PF 20 MG/2 ML SDV IV SCH ×2 (10:54→22:03)
[2017-02-20] MEDS: CITALOPRAM HYDROBROMIDE 20 MG TABLET PO SCH (10:54)
[2017-02-20] MEDS: RISPERIDONE 0.25 MG TABLET PO SCH ×2 (10:55→22:03)
[2017-02-20] MEDS: CEFEPIME HCL 2 GM in DEXTROSE 5%-WATER 50 ML IV SCH (10:55)
[2017-02-20] MEDS: BUDESONIDE/FORMOTEROL 80-4.5 MCG 60 PUFF/6.9 GM MDI IH SCH ×2 (10:56→18:22)
--- NOTE | 2017-02-20 11:41 | PDOC PROGRESS REPORT ---
Subjective Progress Note for:: 02/20/17 Subjective:: Patient is doing well she has no fever no chills ; she is oxygenating adequately on nasal cannula Mentation has improved and she appears alert and awake Physical Exam Vital Signs: Temp Pulse Resp BP Pulse Ox 97.5 F 68 18 136/59 H 100 02/20/17 08:03 02/20/17 08:03 02/20/17 08:03 02/20/17 08:03 02/20/17 08:03 Pulse Oximeter Continuous Start: 02/16/17 18: 47 Freq: RTQ4 Status: Active Document 02/20/17 07:55 NSC (Rec: 02/20/17 09:59 NSC [id number]) Pulse Oximetry Assessment Oxygen Saturation (92-100) 100 Oxygen Flow Rate (L/min) 4 Oxygen Delivery Method Nasal Cannula Fraction of Inspired Oxygen (FIO2) 36 Equipment Usage Equipment Standby Continuous SpO2 Machine # N 5 Intake & Output 02/19/17 02/20/17 02/21/17 00:59 00:59 00:59 Intake Total 835 663 160 Output Total 2200 1250 300 Balance -1365 -587 -140 Weight 70.8 kg 71.3 kg 69.1 kg General appearance: PRESENT: no acute distress, well-developed, well-nourished Head exam: PRESENT: atraumatic, normocephalic Eye exam: PRESENT: conjunctiva pink, EOMI, PERRLA. ABSENT: scleral icterus Ear exam: PRESENT: normal external ear exam Mouth exam: PRESENT: moist, tongue midline Neck exam: ABSENT: carotid bruit, JVD, lymphadenopathy, thyromegaly Respiratory exam: PRESENT: clear to auscultation nicolas. ABSENT: rales, rhonchi, wheezes Cardiovascular exam: PRESENT: RRR. ABSENT: diastolic murmur, rubs, systolic murmur Pulses: PRESENT: normal dorsalis pedis pul Vascular exam: PRESENT: normal capillary refill GI/Abdominal exam: PRESENT: normal bowel sounds, soft. ABSENT: distended, guarding, mass, organolmegaly, rebound, tenderness Rectal exam: PRESENT: deferred Extremities exam: PRESENT: full ROM. ABSENT: calf tenderness, clubbing, pedal edema Neurological exam: PRESENT: alert, awake, CN II-XII grossly intact. ABSENT: motor sensory deficit Psychiatric exam: PRESENT: appropriate affect, normal mood. ABSENT: homicidal ideation, suicidal ideation Skin exam: PRESENT: dry, intact, warm. ABSENT: cyanosis, rash Results Laboratory Results: 02/20/17 05:55 02/20/17 05:55 02/17/17 02/20/17 02/20/17 08:13 05:55 05:55 WBC 10.1 RBC 4.11 Hgb 12.5 Hct 36.2 MCV 88 MCH 30.4 MCHC 34.5 RDW 14.1 H Plt Count 432 Seg Neutrophils % Not Reportable Lymphocytes % Not Reportable Monocytes % Not Reportable Eosinophils % Not Reportable Basophils % Not Reportable Absolute Neutrophils Not Reportable Absolute Lymphocytes Not Reportable Absolute Monocytes Not Reportable Absolute Eosinophils Not Reportable Absolute Basophils Not Reportable Sodium 144.9 Potassium 3.9 Chloride 104 Carbon Dioxide 30 Anion Gap 11 BUN 29 H Creatinine 0.75 Est GFR ( Amer) > 60 Est GFR (Non-Af Amer) > 60 Glucose 99 Calcium 10.6 H Transferrin 190 L Total Bilirubin 2.0 H AST 25 ALT 41 Alkaline Phosphatase 92 Total Protein 6.4 Albumin 3.5 02/16/17 02/17/17 02/17/17 23:09 03:05 09:35 Troponin I 0.012 < 0.012 < 0.012 NT-Pro-B Natriuret Pep 4100 H Impressions: Chest X-Ray 02/17/17 07:43 IMPRESSION: NO ACUTE RADIOGRAPHIC FINDING IN THE CHEST. Assessment & Plan - Diagnosis (1) Acute respiratory failure Qualifiers: Respiratory failure complication: hypoxia Qualified Code(s): J96.01 - Acute respiratory failure with hypoxia Is this a current diagnosis for this admission?: YesPlan: improved continue O2 supplementation (2) Pneumonia Qualifiers: Pneumonia type: due to unspecified organism Laterality: unspecified laterality Lung location: unspecified part of lung Qualified Code(s) : J18.9 - Pneumonia, unspecified organism Is this a current diagnosis for this admission?: YesPlan: Continue antibiotics Patient is currently on cefepime and Zithromax (3) Dysphagia, unspecified Qualifiers: Dysphagia type: unspecified Qualified Code(s): R13.10 - Dysphagia, unspecified Is this a current diagnosis for this admission?: YesPlan: Patient did not aspirate ; she tolerates a regular diet (4) Acute metabolic encephalopathy Is this a current diagnosis for this admission?: YesPlan: Delirium and dementia We will continue Risperdal Keep the patient in the hospital until her mentation has improved (5) Anemia Qualifiers: Anemia type: unspecified type Qualified Code(s): D64.9 - Anemia, unspecified Is this a current diagnosis for this admission?: YesPlan: Secondary to bleeding Has improved (6) Hematoma Is this a current diagnosis for this admission?: Yes - Time Time Spent with patient: We will transfer the patient to medical unit ; will discharge when mentation has improved Time Spent with patient: 25-34 minutes
[2017-02-20] MEDS ORDERED: TIOTROPIUM BROMIDE DPI 5 CAP/KIT (18 MCG/CAP) IH ONE (15:00)
[2017-02-20] MEDS ORDERED: HALOPERIDOL LACTATE INJ 5 MG/1 ML VIAL IV PRN (18:19)
[2017-02-20] MEDS: ATENOLOL 50 MG TABLET PO SCH (18:22)
[2017-02-20] MEDS: ATORVASTATIN CALCIUM 10 MG TABLET PO SCH (22:03)
[2017-02-20] MEDS: AZITHROMYCIN 250 MG TABLET PO SCH (22:03)
[2017-02-21] MEDS: DILTIAZEM HCL 120 MG CAP.SR.24H PO SCH ×2 (06:52→18:12)
[2017-02-21] MEDS: IPRATROPIUM/ALBUTEROL 0.5-2.5 MG/3 ML AMPUL NEB SCH ×3 (08:22→20:34)
[2017-02-21] MEDS: FAMOTIDINE INJ/PF 20 MG/2 ML SDV IV SCH ×2 (10:02→21:48)
[2017-02-21] MEDS: RISPERIDONE 0.25 MG TABLET PO SCH ×2 (10:03→18:17)
[2017-02-21] MEDS: ASPIRIN 81 MG TABLET, CHEWABLE PO SCH (10:03)
[2017-02-21] MEDS: CITALOPRAM HYDROBROMIDE 20 MG TABLET PO SCH (10:03)
[2017-02-21] MEDS: TIOTROPIUM BROMIDE DPI 5 CAP/KIT (18 MCG/CAP) IH SCH (10:04)
[2017-02-21] MEDS: BUDESONIDE/FORMOTEROL 80-4.5 MCG 60 PUFF/6.9 GM MDI IH SCH ×2 (10:05→18:11)
--- NOTE | 2017-02-21 14:04 | PDOC PROGRESS REPORT ---
Subjective Progress Note for:: 02/21/17 Subjective:: Patient was very confused agitated last evening - - during the day she is alert awake and cooperative increased risperdal to 0.5 mg bid no fever no chills or other complaints Physical Exam Vital Signs: Temp Pulse Resp BP Pulse Ox 98.1 F 88 18 140/77 H 96 02/21/17 11:54 02/21/17 11:54 02/21/17 11:54 02/21/17 11:54 02/21/17 11:54 Pulse Oximeter Continuous Start: 02/16/17 18: 47 Freq: RTQ4 Status: Active Document 02/21/17 08:22 CBR (Rec: 02/21/17 09:33 CBR [id number]) Pulse Oximetry Assessment Equipment Usage Equipment Standby Continuous SpO2 Machine # 5 Intake & Output 02/20/17 02/21/17 02/22/17 00:59 00:59 00:59 Intake Total 663 853 110 Output Total 1250 800 300 Balance -587 53 -190 Weight 71.3 kg 69.1 kg 71 kg General appearance: PRESENT: no acute distress, well-developed, well-nourished Head exam: PRESENT: atraumatic, normocephalic Eye exam: PRESENT: conjunctiva pink, EOMI, PERRLA. ABSENT: scleral icterus Neck exam: ABSENT: carotid bruit, JVD, lymphadenopathy, thyromegaly Respiratory exam: PRESENT: clear to auscultation nicolas. ABSENT: rales, rhonchi, wheezes Cardiovascular exam: PRESENT: RRR. ABSENT: diastolic murmur, rubs, systolic murmur GI/Abdominal exam: PRESENT: normal bowel sounds, soft. ABSENT: distended, guarding, mass, organolmegaly, rebound, tenderness Extremities exam: PRESENT: full ROM. ABSENT: calf tenderness, clubbing, pedal edema Neurological exam: PRESENT: alert, awake, CN II-XII grossly intact. ABSENT: motor sensory deficit Results Laboratory Results: 02/20/17 05:55 02/20/17 05:55 02/20/17 05:55 TSH 0.64 02/16/17 02/17/17 02/17/17 23:09 03:05 09:35 Troponin I 0.012 < 0.012 < 0.012 NT-Pro-B Natriuret Pep 4100 H Impressions: Chest X-Ray 02/21/17 07:00 IMPRESSION: NO ACUTE RADIOGRAPHIC FINDING IN THE CHEST. Assessment & Plan - Diagnosis (1) Acute respiratory failure Qualifiers: Respiratory failure complication: hypoxia Qualified Code(s): J96.01 - Acute respiratory failure with hypoxia Is this a current diagnosis for this admission?: Yes (2) Pneumonia Qualifiers: Pneumonia type: due to unspecified organism Laterality: unspecified laterality Lung location: unspecified part of lung Qualified Code(s) : J18.9 - Pneumonia, unspecified organism Is this a current diagnosis for this admission?: Yes (3) Dysphagia, unspecified Qualifiers: Dysphagia type: unspecified Qualified Code(s): R13.10 - Dysphagia, unspecified Is this a current diagnosis for this admission?: Yes (4) Acute metabolic encephalopathy Is this a current diagnosis for this admission?: Yes (5) Anemia Qualifiers: Anemia type: unspecified type Qualified Code(s): D64.9 - Anemia, unspecified Is this a current diagnosis for this admission?: Yes (6) Hematoma Is this a current diagnosis for this admission?: Yes - Time Time Spent with patient: patient is clinically stable at this time except for the delirium that is persistent will keep as an inpatient until mentation improves transfer to medical unit
[2017-02-21] MEDS: ATENOLOL 50 MG TABLET PO SCH (18:11)
[2017-02-21] MEDS: NYSTATIN/DEXAMETH/DIPHEN SUSP 120 ML PO SCH (21:48)
[2017-02-21] MEDS: AZITHROMYCIN 250 MG TABLET PO SCH (21:48)
[2017-02-21] MEDS: ATORVASTATIN CALCIUM 10 MG TABLET PO SCH (21:48)
[2017-02-22] MEDS: NYSTATIN/DEXAMETH/DIPHEN SUSP 120 ML PO SCH (05:36)
[2017-02-22] MEDS: DILTIAZEM HCL 120 MG CAP.SR.24H PO SCH (05:36)
[2017-02-22 08:13] VITALS: BP 133/59
[2017-02-22] MEDS: IPRATROPIUM/ALBUTEROL 0.5-2.5 MG/3 ML AMPUL NEB SCH (08:57)
[2017-02-22] MEDS: ASPIRIN 81 MG TABLET, CHEWABLE PO SCH (09:42)
[2017-02-22] MEDS: RISPERIDONE 0.25 MG TABLET PO SCH (09:42)
[2017-02-22] MEDS: CITALOPRAM HYDROBROMIDE 20 MG TABLET PO SCH (09:42)
[2017-02-22] MEDS: TIOTROPIUM BROMIDE DPI 5 CAP/KIT (18 MCG/CAP) IH SCH (09:43)
[2017-02-22] MEDS: FAMOTIDINE INJ/PF 20 MG/2 ML SDV IV SCH (09:43)
[2017-02-22] MEDS: BUDESONIDE/FORMOTEROL 80-4.5 MCG 60 PUFF/6.9 GM MDI IH SCH (09:43)
--- NOTE | 2017-02-23 15:03 | PDOC DISCHARGE SUMMARY ---
General - Admit/Disc Date/PCP Admission Date/Primary Care Provider: 02/16/17 18:46 LINDSAY RICK MD Discharge Date: 02/22/17 - Discharge Diagnosis (1) Acute respiratory failure Is this a current diagnosis for this admission?: YesSummary: Acute hypoxemic respiratory failure secondary to pneumonia Patient was placed on bipap support on admission her condition improved during her hospital ; she was treated with antibiotics and improved Her oxygen is adequate on room air at discharge (2) Pneumonia Is this a current diagnosis for this admission?: YesSummary: increase interstitial markings on admission likely interstitial pneumonitis improved Patient was discharged on Levaquin to complete antibiotic course (3) Dysphagia, unspecified Is this a current diagnosis for this admission?: YesSummary: Solid Diet Recommendations: Mechanical Soft, Chopped Meat Liquid Diet Recommendations: Thin Strict Aspitarion Precautions: No Dysphagia Therapy with KEY OPERATOR: No Recommended Techniques: Fully Upright During Meal Supervision: Distant Other Recommendations: 1) DIET: Recommend mechanical soft cut meats and thin liquids. 2) Fully upright during meals. 3) Slow rate of intake. SUMMARY: No penetration or aspiration into airway during study. No radiographic findings of pharyngeal residuals. Pt observed to cough x2 however no penetration, aspiration or pharyngeal residuals observed. ST contacted MD regarding results and recommendations. Patient was discharged on mechanical soft , chopped meats diet (4) Acute metabolic encephalopathy Is this a current diagnosis for this admission?: YesSummary: secondary to pneumonia improved Patient was discharged on small doses of risperidone (5) Anemia Is this a current diagnosis for this admission?: YesSummary: secondary to blood loss Patient had sustained a fall and developped a large hematoma of hip She was transfused 2 units PRBC's 02/20/12 02/16/17 02/17/17 10:01 14:05 03:05 Hgb 9.3 L 7.8 L Hct 27.3 L 22.5 L ABG pH 7.30 L ABG pCO2 38.7 ABG pO2 57.4 L ABG HCO3 18.5 L Iron Vitamin B12 02/17/17 02/20/17 08:13 05:55 Hgb 12.5 Hct 36.2 ABG pH ABG pCO2 ABG pO2 ABG HCO3 Iron 36.0 L Vitamin B12 783.0 at discharge H/H is stable vitamin B12 and iron were wnl (6) Hematoma Is this a current diagnosis for this admission?: Yes - Additional Information Resuscitation Status: Full Code Discharge Diet: As Tolerated Discharge Activity: Activity As Tolerated, Balance Activity w/Rest, Slowly Increase Activity Home Medications: Albuterol Sulfate [Ventolin Hfa] 2 puff IH Q4HP PRN 02/06/17 Aspirin [Aspirin 81 mg Chewable Tablet] 81 mg PO DAILY 02/06/17 Pravastatin Sodium [Pravachol] 20 mg PO DAILY 02/06/17 Ranitidine HCl [Zantac 150 mg Tablet] 150 mg PO DAILY 02/06/17 Tiotropium Cook Sta [Spiriva Handihaler 5 Cap/Kit (18 Mcg/Cap)] 1 cap IH DAILY Budesonide/Formoterol Fumarate [Symbicort HFA 80-4.5 mcg Inhaler 6.9 gm] 2 puff IH BID 02/08/17 Acetaminophen [Tylenol 325 mg Tablet] 650 mg PO Q4HP PRN tablet 02/14/17 Atenolol [Tenormin 50 mg Tablet] 25 mg PO DAILY tablet 02/14/17 Citalopram Hydrobromide [Celexa 20 mg Tablet] 10 mg PO DAILY tablet 02/14/17 Diltiazem HCl [Cardizem Cd 120 mg Capsule] 120 mg PO BID cap.sr.24h 02/14/17 Levofloxacin [Levaquin 750 mg Tablet] 750 mg PO Q2D@1000 #7 tablet 02/14/17 Azithromycin [Zithromax 250 mg Tablet] 500 mg PO QHS #5 tablet 02/22/17 Ipratropium/Albuterol Sulfate [Duoneb 3 ml Ampul] 3 ml [facility] [id number] #30 vial.neb 02/22/17 Risperidone [Risperdal] 0.5 mg PO BID #60 tablet 02/22/17 History of Present Illness Patient complains of: shortness of breath History of Present Illness: SACHIN GEIGER is a 71 year old female presents from intermediate facility where she was undergoing rehabilitation after recent hospitalization for pneumonia as seen by CT scan with a tree-in- bud pattern. That hospitalization was prolonged by an episode of acute delirium triggered by a drop in her blood pressure. The family noted that she was awake alert and participate with physical therapy early this morning but after administration of some crushed pills this afternoon is when the trouble started. They say she suddenly became less responsive, they thought she was simply taking a nap but then she became pale and diaphoretic and they alerted the staff who discovered that she was indeed difficult to arouse, oxygen level was reportedly low but I don't know how much as there is no documentation that accompanies her and she was sent to the emergency department for further evaluation. On arrival here blood pressures have been low and she is currently receiving IV fluids. Unfortunately she is too lethargic to be able to provide much in the way of review of systems her medical history, she will awaken and open her eyes and follow simple short one-step commands but that's about it right now. She is oxygenating well with saturations of 100% on the monitor and not requiring BiPAP, she is in no respiratory distress at present. Her laboratory work and chest x-ray implied that her pneumonia seems to be failing Levaquin therapy as an outpatient perhaps contributing to her low blood pressures and change in mental state. As such we were asked to admit the patient for further evaluation and management. Hospital Course Hospital Course: see above Physical Exam Vital Signs: Temp Pulse Resp BP Pulse Ox 97.5 F 85 20 133/59 H 96 02/22/17 12:26 02/22/17 12:26 02/22/17 12:26 02/22/17 12:26 02/22/17 12:26 Pulse Oximeter Continuous Start: 02/16/17 18: 47 Freq: RTQ4 Status: Complete Document 02/21/17 08:22 CBR (Rec: 02/21/17 09:33 CBR [id number]) Pulse Oximetry Assessment Equipment Usage Equipment Standby Continuous SpO2 Machine # 5 Intake & Output 02/22/17 02/23/17 02/24/17 00:59 00:59 00:59 Intake Total 446 235 Output Total 300 Balance 146 235 Weight 71 kg 73.2 kg General appearance: PRESENT: no acute distress, well-developed, well-nourished Head exam: PRESENT: atraumatic, normocephalic Eye exam: PRESENT: conjunctiva pink, EOMI, PERRLA. ABSENT: scleral icterus Ear exam: PRESENT: normal external ear exam Mouth exam: PRESENT: moist, tongue midline Neck exam: ABSENT: carotid bruit, JVD, lymphadenopathy, thyromegaly Respiratory exam: PRESENT: clear to auscultation nicolas. ABSENT: rales, rhonchi, wheezes Cardiovascular exam: PRESENT: RRR. ABSENT: diastolic murmur, rubs, systolic murmur Pulses: PRESENT: normal dorsalis pedis pul Vascular exam: PRESENT: normal capillary refill GI/Abdominal exam: PRESENT: normal bowel sounds, soft. ABSENT: distended, guarding, mass, organolmegaly, rebound, tenderness Rectal exam: PRESENT: deferred Extremities exam: PRESENT: full ROM. ABSENT: calf tenderness, clubbing, pedal edema Neurological exam: PRESENT: alert, awake, CN II-XII grossly intact. ABSENT: motor sensory deficit Skin exam: PRESENT: dry, intact, warm. ABSENT: cyanosis, rash Results Laboratory Results: 02/20/17 05:55 02/20/17 05:55 02/16/17 02/17/17 02/17/17 23:09 03:05 09:35 Troponin I 0.012 < 0.012 < 0.012 NT-Pro-B Natriuret Pep 4100 H Labs- Entire Visit 02/16/17 02/16/17 02/16/17 14:05 14:05 14:05 WBC 20.7 H RBC 3.17 L Hgb 9.3 L Hct 27.3 L MCV 86 MCH 29.2 MCHC 34.0 RDW 13.8 Plt Count 549 H Total Counted 100 Seg Neutrophils % Not Reportable Seg Neuts % (Manual) 82 H Band Neutrophils % 2 L Lymphocytes % Not Reportable Lymphocytes % (Manual) 8 L Atypical Lymphs % Monocytes % Not Reportable Monocytes % (Manual) 6 Eosinophils % Not Reportable Eosinophils % (Manual) 0 Basophils % Not Reportable Basophils % (Manual) 0 Metamyelocytes % 1 H Myelocytes % 1 H Absolute Neutrophils Not Reportable Abs Neuts (Manual) 17.8 H Absolute Lymphocytes Not Reportable Abs Lymphs (Manual) 1.7 Absolute Monocytes Not Reportable Abs Monocytes (Manual) 1.2 Absolute Eosinophils Not Reportable Absolute Eos (Manual) 0.0 Absolute Basophils Not Reportable Abs Basophils (Manual) 0.0 Toxic Granulation 1+ Toxic Vacuolation Clumped Platelets Platelet Comment INCREASED Polychromasia SLIGHT Hypochromasia 1+ Poikilocytosis SLIGHT Basophilic Stippling Anisocytosis Ovalocytes SLIGHT Schistocytes Retic Count (auto) Absolute Retic PT INR Carbonic Acid HCO3/H2CO3 Ratio ABG pH ABG pCO2 ABG pO2 ABG HCO3 ABG Total CO2 ABG O2 Saturation ABG Base Excess VBG pH VBG pCO2 VBG HCO3 VBG Base Excess FiO2 Sodium 142.0 Potassium 4.8 Chloride 104 Carbon Dioxide 26 Anion Gap 12 BUN 35 H Creatinine 1.05 Est GFR ( Amer) > 60 Est GFR (Non-Af Amer) 51 L Glucose 211 H POC Glucose Lactic Acid Calcium 10.9 H Magnesium 1.9 Iron TIBC % Saturation Transferrin Ferritin Total Bilirubin 1.6 H Direct Bilirubin 0.4 Indirect Bilirubin Not Reportable Neonat Total Bilirubin Not Reportable AST 33 ALT 60 H Alkaline Phosphatase 84 Troponin I 0.038 NT-Pro-B Natriuret Pep Total Protein 5.9 L Albumin 3.5 Vitamin B12 Folate TSH Urine Color Urine Appearance Urine pH Ur Specific [place] Urine Protein Urine Glucose (UA) Urine Ketones Urine Blood Urine Nitrite Urine Bilirubin Urine Urobilinogen Ur Leukocyte Esterase Urine WBC (Auto) Urine RBC (Auto) U Hyaline Cast (Auto) Urine Bacteria (Auto) Squamous Epi Cells Auto U Non-Squamous Epis Auto Urine Mucus (Auto) Urine Ascorbic Acid Slides for Path Review PATHOLOGIST REVIEWED Blood Type Blood Type Confirm Antibody Screen Crossmatch 02/16/17 02/16/17 02/16/17 14:05 14:05 14:05 WBC RBC Hgb Hct MCV MCH MCHC RDW Plt Count Total Counted Seg Neutrophils % Seg Neuts % (Manual) Band Neutrophils % Lymphocytes % Lymphocytes % (Manual) Atypical Lymphs % Monocytes % Monocytes % (Manual) Eosinophils % Eosinophils % (Manual) Basophils % Basophils % (Manual) Metamyelocytes % Myelocytes % Absolute Neutrophils Abs Neuts (Manual) Absolute Lymphocytes Abs Lymphs (Manual) Absolute Monocytes Abs Monocytes (Manual) Absolute Eosinophils Absolute Eos (Manual) Absolute Basophils Abs Basophils (Manual) Toxic Granulation Toxic Vacuolation Clumped Platelets Platelet Comment Polychromasia Hypochromasia Poikilocytosis Basophilic Stippling Anisocytosis Ovalocytes Schistocytes Retic Count (auto) Absolute Retic PT 14.0 INR 1.05 Carbonic Acid HCO3/H2CO3 Ratio ABG pH ABG pCO2 ABG pO2 ABG HCO3 ABG Total CO2 ABG O2 Saturation ABG Base Excess VBG pH VBG pCO2 VBG HCO3 VBG Base Excess FiO2 Sodium Potassium Chloride Carbon Dioxide Anion Gap BUN Creatinine Est GFR ( Amer) Est GFR (Non-Af Amer) Glucose POC Glucose Lactic Acid 2.3 H Calcium Magnesium Iron TIBC % Saturation Transferrin Ferritin Total Bilirubin Direct Bilirubin Indirect Bilirubin Neonat Total Bilirubin AST ALT Alkaline Phosphatase Troponin I NT-Pro-B Natriuret Pep 92607 H Total Protein Albumin Vitamin B12 Folate TSH Urine Color Urine Appearance Urine pH Ur Specific [place] Urine Protein Urine Glucose (UA) Urine Ketones Urine Blood Urine Nitrite Urine Bilirubin Urine Urobilinogen Ur Leukocyte Esterase Urine WBC (Auto) Urine RBC (Auto) U Hyaline Cast (Auto) Urine Bacteria (Auto) Squamous Epi Cells Auto U Non-Squamous Epis Auto Urine Mucus (Auto) Urine Ascorbic Acid Slides for Path Review Blood Type Blood Type Confirm Antibody Screen Crossmatch 02/16/17 02/16/17 02/16/17 14:50 16:26 19:53 WBC RBC Hgb Hct MCV MCH MCHC RDW Plt Count Total Counted Seg Neutrophils % Seg Neuts % (Manual) Band Neutrophils % Lymphocytes % Lymphocytes % (Manual) Atypical Lymphs % Monocytes % Monocytes % (Manual) Eosinophils % Eosinophils % (Manual) Basophils % Basophils % (Manual) Metamyelocytes % Myelocytes % Absolute Neutrophils Abs Neuts (Manual) Absolute Lymphocytes Abs Lymphs (Manual) Absolute Monocytes Abs Monocytes (Manual) Absolute Eosinophils Absolute Eos (Manual) Absolute Basophils Abs Basophils (Manual) Toxic Granulation Toxic Vacuolation Clumped Platelets Platelet Comment Polychromasia Hypochromasia Poikilocytosis Basophilic Stippling Anisocytosis Ovalocytes Schistocytes Retic Count (auto) Absolute Retic PT INR Carbonic Acid 1.05 HCO3/H2CO3 Ratio 23:1 ABG pH 7.47 H ABG pCO2 34.8 L ABG pO2 228.8 H ABG HCO3 24.8 ABG Total CO2 25.8 H ABG O2 Saturation 99.6 H ABG Base Excess 1.2 VBG pH VBG pCO2 VBG HCO3 VBG Base Excess FiO2 50% Sodium Potassium Chloride Carbon Dioxide Anion Gap BUN Creatinine Est GFR ( Amer) Est GFR (Non-Af Amer) Glucose POC Glucose Lactic Acid 1.6 Calcium Magnesium Iron TIBC % Saturation Transferrin Ferritin Total Bilirubin Direct Bilirubin Indirect Bilirubin Neonat Total Bilirubin AST ALT Alkaline Phosphatase Troponin I NT-Pro-B Natriuret Pep Total Protein Albumin Vitamin B12 Folate TSH Urine Color YELLOW Urine Appearance CLOUDY Urine pH 5.0 Ur Specific [place] 1.026 Urine Protein 100 H Urine Glucose (UA) NEGATIVE Urine Ketones NEGATIVE Urine Blood NEGATIVE Urine Nitrite NEGATIVE Urine Bilirubin SMALL H Urine Urobilinogen NEGATIVE Ur Leukocyte Esterase NEGATIVE Urine WBC (Auto) 10 Urine RBC (Auto) 2 U Hyaline Cast (Auto) 27 Urine Bacteria (Auto) TRACE Squamous Epi Cells Auto 2 U Non-Squamous Epis Auto 1 Urine Mucus (Auto) MOD Urine Ascorbic Acid NEGATIVE Slides for Path Review Blood Type Blood Type Confirm Antibody Screen Crossmatch 02/16/17 02/16/17 02/17/17 23:09 23:09 00:50 WBC RBC Hgb Hct MCV MCH MCHC RDW Plt Count Total Counted Seg Neutrophils % Seg Neuts % (Manual) Band Neutrophils % Lymphocytes % Lymphocytes % (Manual) Atypical Lymphs % Monocytes % Monocytes % (Manual) Eosinophils % Eosinophils % (Manual) Basophils % Basophils % (Manual) Metamyelocytes % Myelocytes % Absolute Neutrophils Abs Neuts (Manual) Absolute Lymphocytes Abs Lymphs (Manual) Absolute Monocytes Abs Monocytes (Manual) Absolute Eosinophils Absolute Eos (Manual) Absolute Basophils Abs Basophils (Manual) Toxic Granulation Toxic Vacuolation Clumped Platelets Platelet Comment Polychromasia Hypochromasia Poikilocytosis Basophilic Stippling Anisocytosis Ovalocytes Schistocytes Retic Count (auto) Absolute Retic PT INR Carbonic Acid HCO3/H2CO3 Ratio ABG pH ABG pCO2 ABG pO2 ABG HCO3 ABG Total CO2 ABG O2 Saturation ABG Base Excess VBG pH 7.35 VBG pCO2 45.2 VBG HCO3 24.5 VBG Base Excess -1.1 FiO2 Sodium Potassium Chloride Carbon Dioxide Anion Gap BUN Creatinine Est GFR ( Amer) Est GFR (Non-Af Amer) Glucose POC Glucose 132 H Lactic Acid Calcium Magnesium Iron TIBC % Saturation Transferrin Ferritin Total Bilirubin Direct Bilirubin Indirect Bilirubin Neonat Total Bilirubin AST ALT Alkaline Phosphatase Troponin I 0.012 NT-Pro-B Natriuret Pep Total Protein Albumin Vitamin B12 Folate TSH Urine Color Urine Appearance Urine pH Ur Specific [place] Urine Protein Urine Glucose (UA) Urine Ketones Urine Blood Urine Nitrite Urine Bilirubin Urine Urobilinogen Ur Leukocyte Esterase Urine WBC (Auto) Urine RBC (Auto) U Hyaline Cast (Auto) Urine Bacteria (Auto) Squamous Epi Cells Auto U Non-Squamous Epis Auto Urine Mucus (Auto) Urine Ascorbic Acid Slides for Path Review Blood Type Blood Type Confirm Antibody Screen Crossmatch 02/17/17 02/17/17 02/17/17 03:05 03:05 03:05 WBC 10.3 RBC 2.61 L Hgb 7.8 L Hct 22.5 L MCV 86 MCH 30.0 MCHC 34.8 RDW 14.2 H Plt Count 367 Total Counted 100 Seg Neutrophils % Not Reportable Seg Neuts % (Manual) 75 Band Neutrophils % 3 Lymphocytes % Not Reportable Lymphocytes % (Manual) 11 L Atypical Lymphs % Monocytes % Not Reportable Monocytes % (Manual) 10 Eosinophils % Not Reportable Eosinophils % (Manual) 0 Basophils % Not Reportable Basophils % (Manual) 1 Metamyelocytes % Myelocytes % Absolute Neutrophils Not Reportable Abs Neuts (Manual) 8.0 Absolute Lymphocytes Not Reportable Abs Lymphs (Manual) 1.1 Absolute Monocytes Not Reportable Abs Monocytes (Manual) 1.0 Absolute Eosinophils Not Reportable Absolute Eos (Manual) 0.0 Absolute Basophils Not Reportable Abs Basophils (Manual) 0.1 Toxic Granulation 1+ Toxic Vacuolation Clumped Platelets Platelet Comment ADEQUATE Polychromasia 1+ Hypochromasia Poikilocytosis 1+ Basophilic Stippling Anisocytosis SLIGHT Ovalocytes SLIGHT Schistocytes Retic Count (auto) Absolute Retic PT INR Carbonic Acid HCO3/H2CO3 Ratio ABG pH ABG pCO2 ABG pO2 ABG HCO3 ABG Total CO2 ABG O2 Saturation ABG Base Excess VBG pH VBG pCO2 VBG HCO3 VBG Base Excess FiO2 Sodium 144.8 Potassium 4.0 Chloride 111 H Carbon Dioxide 25 Anion Gap 9 BUN 30 H Creatinine 0.84 Est GFR ( Amer) > 60 Est GFR (Non-Af Amer) > 60 Glucose 117 H POC Glucose Lactic Acid Calcium 9.8 Magnesium Iron TIBC % Saturation Transferrin Ferritin Total Bilirubin 1.0 Direct Bilirubin 0.3 Indirect Bilirubin Not Reportable Neonat Total Bilirubin Not Reportable AST 24 ALT 47 Alkaline Phosphatase 69 Troponin I < 0.012 NT-Pro-B Natriuret Pep 4100 H Total Protein 5.1 L Albumin 2.7 L Vitamin B12 Folate TSH Urine Color Urine Appearance Urine pH Ur Specific [place] Urine Protein Urine Glucose (UA) Urine Ketones Urine Blood Urine Nitrite Urine Bilirubin Urine Urobilinogen Ur Leukocyte Esterase Urine WBC (Auto) Urine RBC (Auto) U Hyaline Cast (Auto) Urine Bacteria (Auto) Squamous Epi Cells Auto U Non-Squamous Epis Auto Urine Mucus (Auto) Urine Ascorbic Acid Slides for Path Review Blood Type Blood Type Confirm Antibody Screen Crossmatch 02/17/17 02/17/17 02/17/17 03:05 05:58 06:30 WBC RBC Hgb Hct MCV MCH MCHC RDW Plt Count Total Counted Seg Neutrophils % Seg Neuts % (Manual) Band Neutrophils % Lymphocytes % Lymphocytes % (Manual) Atypical Lymphs % Monocytes % Monocytes % (Manual) Eosinophils % Eosinophils % (Manual) Basophils % Basophils % (Manual) Metamyelocytes % Myelocytes % Absolute Neutrophils Abs Neuts (Manual) Absolute Lymphocytes Abs Lymphs (Manual) Absolute Monocytes Abs Monocytes (Manual) Absolute Eosinophils Absolute Eos (Manual) Absolute Basophils Abs Basophils (Manual) Toxic Granulation Toxic Vacuolation Clumped Platelets Platelet Comment Polychromasia Hypochromasia Poikilocytosis Basophilic Stippling Anisocytosis Ovalocytes Schistocytes Retic Count (auto) Absolute Retic PT INR Carbonic Acid HCO3/H2CO3 Ratio ABG pH ABG pCO2 ABG pO2 ABG HCO3 ABG Total CO2 ABG O2 Saturation ABG Base Excess VBG pH 7.43 H VBG pCO2 40.8 VBG HCO3 26.5 VBG Base Excess 2.0 FiO2 Sodium Potassium Chloride Carbon Dioxide Anion Gap BUN Creatinine Est GFR ( Amer) Est GFR (Non-Af Amer) Glucose POC Glucose 118 H Lactic Acid Calcium Magnesium Iron TIBC % Saturation Transferrin Ferritin Total Bilirubin Direct Bilirubin Indirect Bilirubin Neonat Total Bilirubin AST ALT Alkaline Phosphatase Troponin I NT-Pro-B Natriuret Pep Total Protein Albumin Vitamin B12 Folate TSH Urine Color Urine Appearance Urine pH Ur Specific [place] Urine Protein Urine Glucose (UA) Urine Ketones Urine Blood Urine Nitrite Urine Bilirubin Urine Urobilinogen Ur Leukocyte Esterase Urine WBC (Auto) Urine RBC (Auto) U Hyaline Cast (Auto) Urine Bacteria (Auto) Squamous Epi Cells Auto U Non-Squamous Epis Auto Urine Mucus (Auto) Urine Ascorbic Acid Slides for Path Review Blood Type A POSITIVE Blood Type Confirm Antibody Screen NEGATIVE Crossmatch See Detail 02/17/17 02/17/17 02/17/17 08:13 08:13 08:13 WBC RBC Hgb Hct MCV MCH MCHC RDW Plt Count Total Counted Seg Neutrophils % Seg Neuts % (Manual) Band Neutrophils % Lymphocytes % Lymphocytes % (Manual) Atypical Lymphs % Monocytes % Monocytes % (Manual) Eosinophils % Eosinophils % (Manual) Basophils % Basophils % (Manual) Metamyelocytes % Myelocytes % Absolute Neutrophils Abs Neuts (Manual) Absolute Lymphocytes Abs Lymphs (Manual) Absolute Monocytes Abs Monocytes (Manual) Absolute Eosinophils Absolute Eos (Manual) Absolute Basophils Abs Basophils (Manual) Toxic Granulation Toxic Vacuolation Clumped Platelets Platelet Comment Polychromasia Hypochromasia Poikilocytosis Basophilic Stippling Anisocytosis Ovalocytes Schistocytes Retic Count (auto) 3.28 H Absolute Retic 0.092 PT INR Carbonic Acid HCO3/H2CO3 Ratio ABG pH ABG pCO2 ABG pO2 ABG HCO3 ABG Total CO2 ABG O2 Saturation ABG Base Excess VBG pH VBG pCO2 VBG HCO3 VBG Base Excess FiO2 Sodium Potassium Chloride Carbon Dioxide Anion Gap BUN Creatinine Est GFR ( Amer) Est GFR (Non-Af Amer) Glucose POC Glucose Lactic Acid Calcium Magnesium Iron 36.0 L TIBC 253 % Saturation 14 Transferrin 190 L Ferritin 291.00 H Total Bilirubin Direct Bilirubin Indirect Bilirubin Neonat Total Bilirubin AST ALT Alkaline Phosphatase Troponin I NT-Pro-B Natriuret Pep Total Protein Albumin Vitamin B12 783.0 Folate 6.03 TSH Urine Color Urine Appearance Urine pH Ur Specific [place] Urine Protein Urine Glucose (UA) Urine Ketones Urine Blood Urine Nitrite Urine Bilirubin Urine Urobilinogen Ur Leukocyte Esterase Urine WBC (Auto) Urine RBC (Auto) U Hyaline Cast (Auto) Urine Bacteria (Auto) Squamous Epi Cells Auto U Non-Squamous Epis Auto Urine Mucus (Auto) Urine Ascorbic Acid Slides for Path Review Blood Type Blood Type Confirm Antibody Screen Crossmatch 02/17/17 02/17/17 02/17/17 08:13 09:35 23:01 WBC RBC Hgb Hct MCV MCH MCHC RDW Plt Count Total Counted Seg Neutrophils % Seg Neuts % (Manual) Band Neutrophils % Lymphocytes % Lymphocytes % (Manual) Atypical Lymphs % Monocytes % Monocytes % (Manual) Eosinophils % Eosinophils % (Manual) Basophils % Basophils % (Manual) Metamyelocytes % Myelocytes % Absolute Neutrophils Abs Neuts (Manual) Absolute Lymphocytes Abs Lymphs (Manual) Absolute Monocytes Abs Monocytes (Manual) Absolute Eosinophils Absolute Eos (Manual) Absolute Basophils Abs Basophils (Manual) Toxic Granulation Toxic Vacuolation Clumped Platelets Platelet Comment Polychromasia Hypochromasia Poikilocytosis Basophilic Stippling Anisocytosis Ovalocytes Schistocytes Retic Count (auto) Absolute Retic PT INR Carbonic Acid HCO3/H2CO3 Ratio ABG pH ABG pCO2 ABG pO2 ABG HCO3 ABG Total CO2 ABG O2 Saturation ABG Base Excess VBG pH VBG pCO2 VBG HCO3 VBG Base Excess FiO2 Sodium Potassium Chloride Carbon Dioxide Anion Gap BUN Creatinine Est GFR ( Amer) Est GFR (Non-Af Amer) Glucose POC Glucose 116 H Lactic Acid Calcium Magnesium Iron TIBC % Saturation Transferrin Ferritin Total Bilirubin Direct Bilirubin Indirect Bilirubin Neonat Total Bilirubin AST ALT Alkaline Phosphatase Troponin I < 0.012 NT-Pro-B Natriuret Pep Total Protein Albumin Vitamin B12 Folate TSH Urine Color Urine Appearance Urine pH Ur Specific [place] Urine Protein Urine Glucose (UA) Urine Ketones Urine Blood Urine Nitrite Urine Bilirubin Urine Urobilinogen Ur Leukocyte Esterase Urine WBC (Auto) Urine RBC (Auto) U Hyaline Cast (Auto) Urine Bacteria (Auto) Squamous Epi Cells Auto U Non-Squamous Epis Auto Urine Mucus (Auto) Urine Ascorbic Acid Slides for Path Review Blood Type Blood Type Confirm A POSITIVE Antibody Screen Crossmatch 02/18/17 02/18/17 02/18/17 03:43 03:43 06:52 WBC 14.1 H RBC 4.13 Hgb 12.1 D Hct 35.7 L MCV 86 MCH 29.4 MCHC 34.0 RDW 14.0 Plt Count 429 Total Counted 100 Seg Neutrophils % Not Reportable Seg Neuts % (Manual) 68 Band Neutrophils % 1 L Lymphocytes % Not Reportable Lymphocytes % (Manual) 18 Atypical Lymphs % 1 Monocytes % Not Reportable Monocytes % (Manual) 10 Eosinophils % Not Reportable Eosinophils % (Manual) 0 Basophils % Not Reportable Basophils % (Manual) 0 Metamyelocytes % 2 H Myelocytes % Absolute Neutrophils Not Reportable Abs Neuts (Manual) 10.0 H Absolute Lymphocytes Not Reportable Abs Lymphs (Manual) 2.7 Absolute Monocytes Not Reportable Abs Monocytes (Manual) 1.4 Absolute Eosinophils Not Reportable Absolute Eos (Manual) 0.0 Absolute Basophils Not Reportable Abs Basophils (Manual) 0.0 Toxic Granulation Toxic Vacuolation PRESENT Clumped Platelets PRESENT Platelet Comment ADEQUATE Polychromasia SLIGHT Hypochromasia Poikilocytosis Basophilic Stippling Anisocytosis Ovalocytes Schistocytes Retic Count (auto) Absolute Retic PT INR Carbonic Acid HCO3/H2CO3 Ratio ABG pH ABG pCO2 ABG pO2 ABG HCO3 ABG Total CO2 ABG O2 Saturation ABG Base Excess VBG pH VBG pCO2 VBG HCO3 VBG Base Excess FiO2 Sodium 143.7 Potassium 3.4 L Chloride 101 Carbon Dioxide 30 Anion Gap 13 BUN 22 H Creatinine 0.76 Est GFR ( Amer) > 60 Est GFR (Non-Af Amer) > 60 Glucose 111 H POC Glucose 104 Lactic Acid Calcium 10.4 H Magnesium Iron TIBC % Saturation Transferrin Ferritin Total Bilirubin 3.6 H Direct Bilirubin 0.6 H Indirect Bilirubin Not Reportable Neonat Total Bilirubin Not Reportable AST 32 ALT 51 Alkaline Phosphatase 93 Troponin I NT-Pro-B Natriuret Pep Total Protein 6.6 Albumin 3.7 Vitamin B12 Folate TSH Urine Color Urine Appearance Urine pH Ur Specific [place] Urine Protein Urine Glucose (UA) Urine Ketones Urine Blood Urine Nitrite Urine Bilirubin Urine Urobilinogen Ur Leukocyte Esterase Urine WBC (Auto) Urine RBC (Auto) U Hyaline Cast (Auto) Urine Bacteria (Auto) Squamous Epi Cells Auto U Non-Squamous Epis Auto Urine Mucus (Auto) Urine Ascorbic Acid Slides for Path Review Blood Type Blood Type Confirm Antibody Screen Crossmatch 02/19/17 02/19/17 02/20/17 05:32 05:32 05:55 WBC 11.5 H 10.1 RBC 3.85 4.11 Hgb 11.6 L 12.5 Hct 33.7 L 36.2 MCV 88 88 MCH 30.3 30.4 MCHC 34.5 34.5 RDW 14.4 H 14.1 H Plt Count 420 432 Total Counted 100 100 Seg Neutrophils % Not Reportable Not Reportable Seg Neuts % (Manual) 70 72 Band Neutrophils % 2 L 2 L Lymphocytes % Not Reportable Not Reportable Lymphocytes % (Manual) 16 15 Atypical Lymphs % Monocytes % Not Reportable Not Reportable Monocytes % (Manual) 11 9 Eosinophils % Not Reportable Not Reportable Eosinophils % (Manual) 1 2 Basophils % Not Reportable Not Reportable Basophils % (Manual) 0 0 Metamyelocytes % Myelocytes % Absolute Neutrophils Not Reportable Not Reportable Abs Neuts (Manual) 8.3 H 7.5 Absolute Lymphocytes Not Reportable Not Reportable Abs Lymphs (Manual) 1.8 1.5 Absolute Monocytes Not Reportable Not Reportable Abs Monocytes (Manual) 1.3 0.9 Absolute Eosinophils Not Reportable Not Reportable Absolute Eos (Manual) 0.1 0.2 Absolute Basophils Not Reportable Not Reportable Abs Basophils (Manual) 0.0 0.0 Toxic Granulation SLIGHT Toxic Vacuolation Clumped Platelets Platelet Comment ADEQUATE ADEQUATE Polychromasia SLIGHT SLIGHT Hypochromasia Poikilocytosis SLIGHT Basophilic Stippling PRESENT Anisocytosis SLIGHT SLIGHT Ovalocytes SLIGHT Schistocytes SLIGHT Retic Count (auto) Absolute Retic PT INR Carbonic Acid HCO3/H2CO3 Ratio ABG pH ABG pCO2 ABG pO2 ABG HCO3 ABG Total CO2 ABG O2 Saturation ABG Base Excess VBG pH VBG pCO2 VBG HCO3 VBG Base Excess FiO2 Sodium 142.4 Potassium 3.8 Chloride 101 Carbon Dioxide 33 H Anion Gap 8 BUN 28 H Creatinine 0.73 Est GFR ( Amer) > 60 Est GFR (Non-Af Amer) > 60 Glucose 101 POC Glucose Lactic Acid Calcium 10.6 H Magnesium Iron TIBC % Saturation Transferrin Ferritin Total Bilirubin 1.6 H Direct Bilirubin 0.2 Indirect Bilirubin Not Reportable Neonat Total Bilirubin Not Reportable AST 24 ALT 45 Alkaline Phosphatase 78 Troponin I NT-Pro-B Natriuret Pep Total Protein 6.0 L Albumin 3.3 L Vitamin B12 Folate TSH Urine Color Urine Appearance Urine pH Ur Specific [place] Urine Protein Urine Glucose (UA) Urine Ketones Urine Blood Urine Nitrite Urine Bilirubin Urine Urobilinogen Ur Leukocyte Esterase Urine WBC (Auto) Urine RBC (Auto) U Hyaline Cast (Auto) Urine Bacteria (Auto) Squamous Epi Cells Auto U Non-Squamous Epis Auto Urine Mucus (Auto) Urine Ascorbic Acid Slides for Path Review Blood Type Blood Type Confirm Antibody Screen Crossmatch 02/20/17 02/20/17 05:55 05:55 WBC RBC Hgb Hct MCV MCH MCHC RDW Plt Count Total Counted Seg Neutrophils % Seg Neuts % (Manual) Band Neutrophils % Lymphocytes % Lymphocytes % (Manual) Atypical Lymphs % Monocytes % Monocytes % (Manual) Eosinophils % Eosinophils % (Manual) Basophils % Basophils % (Manual) Metamyelocytes % Myelocytes % Absolute Neutrophils Abs Neuts (Manual) Absolute Lymphocytes Abs Lymphs (Manual) Absolute Monocytes Abs Monocytes (Manual) Absolute Eosinophils Absolute Eos (Manual) Absolute Basophils Abs Basophils (Manual) Toxic Granulation Toxic Vacuolation Clumped Platelets Platelet Comment Polychromasia Hypochromasia Poikilocytosis Basophilic Stippling Anisocytosis Ovalocytes Schistocytes Retic Count (auto) Absolute Retic PT INR Carbonic Acid HCO3/H2CO3 Ratio ABG pH ABG pCO2 ABG pO2 ABG HCO3 ABG Total CO2 ABG O2 Saturation ABG Base Excess VBG pH VBG pCO2 VBG HCO3 VBG Base Excess FiO2 Sodium 144.9 Potassium 3.9 Chloride 104 Carbon Dioxide 30 Anion Gap 11 BUN 29 H Creatinine 0.75 Est GFR ( Amer) > 60 Est GFR (Non-Af Amer) > 60 Glucose 99 POC Glucose Lactic Acid Calcium 10.6 H Magnesium Iron TIBC % Saturation Transferrin Ferritin Total Bilirubin 2.0 H Direct Bilirubin 0.5 H Indirect Bilirubin Not Reportable Neonat Total Bilirubin Not Reportable AST 25 ALT 41 Alkaline Phosphatase 92 Troponin I NT-Pro-B Natriuret Pep Total Protein 6.4 Albumin 3.5 Vitamin B12 Folate TSH 0.64 Urine Color Urine Appearance Urine pH Ur Specific [place] Urine Protein Urine Glucose (UA) Urine Ketones Urine Blood Urine Nitrite Urine Bilirubin Urine Urobilinogen Ur Leukocyte Esterase Urine WBC (Auto) Urine RBC (Auto) U Hyaline Cast (Auto) Urine Bacteria (Auto) Squamous Epi Cells Auto U Non-Squamous Epis Auto Urine Mucus (Auto) Urine Ascorbic Acid Slides for Path Review Blood Type Blood Type Confirm Antibody Screen Crossmatch Impressions: Chest X-Ray 02/21/17 07:00 IMPRESSION: NO ACUTE RADIOGRAPHIC FINDING IN THE CHEST. Plan Discharge Plan: discharge home with daughter Time Spent: Greater than 30 Minutes
== END 2017-02-22 13:39 | disposition home health service (06) | DRG 871 ==
LOC: ER 13:40 → UNDOADMIN 17:51 → EH 17:51 → 3W 21:56 → 4S 02-21 15:17
PROC: 5A09457 Assistance with Respiratory Ventilation, 24-96 Consecutive Hours, Continuous Positive Airway Pressure (ICD-10-PCS; 2017-02-16)
PROC: 3E0F73Z Introduction of Anti-inflammatory into Respiratory Tract, Via Natural or Artificial Opening (ICD-10-PCS; 2017-02-16)
PROC: 30233N1 Transfusion of Nonautologous Red Blood Cells into Peripheral Vein, Percutaneous Approach (ICD-10-PCS; principal; 2017-02-17)
DX: A41.9 Sepsis, unspecified organism (principal); J96.01 Acute respiratory failure with hypoxia; G93.41 Metabolic encephalopathy; J84.89 Other specified interstitial pulmonary diseases; R13.10 Dysphagia, unspecified; D50.0 Iron deficiency anemia secondary to blood loss (chronic); S70.01XA Contusion of right hip, initial encounter; W19.XXXA Unspecified fall, initial encounter; E78.5 Hyperlipidemia, unspecified; I12.9 Hypertensive chronic kidney disease with stage 1 through stage 4 chronic kidney disease, or unspecified chronic kidney disease; N18.3 Chronic kidney disease, stage 3 (moderate); G30.9 Alzheimer's disease, unspecified; F02.80 Dementia in other diseases classified elsewhere, unspecified severity, without behavioral disturbance, psychotic disturbance, mood disturbance, and anxiety; F32.9 Major depressive disorder, single episode, unspecified; J44.9 Chronic obstructive pulmonary disease, unspecified; F20.9 Schizophrenia, unspecified; I48.91 Unspecified atrial fibrillation; I25.2 Old myocardial infarction; Z79.82 Long term (current) use of aspirin; Z79.899 Other long term (current) drug therapy; Z95.5 Presence of coronary angioplasty implant and graft; Z87.891 Personal history of nicotine dependence; Z88.6 Allergy status to analgesic agent; Z88.8 Allergy status to other drugs, medicaments and biological substances
CPT/HCPCS: 36415; 36430; 36600; 51702; 71010; 80053; 81001; 82607; 82728; 82746; 82803; 82962; 83540; 83550; 83605; 83735; 83880; 84443; 84466; 84484; 85025; 85045; 85610; 86850; 86900; 86901; 86920; 87040; 87086; 93005; 93010; 94640; 94660; 94762; 96365; 99291; G8978-GP; G8979-GP; J0456; J0692; J1630; J1650; J1940; J2543; J3370; J3490; J7030; J7060; J7120; J7620; P9016; S0028

== ENCOUNTER 2017-07-04 07:21 | Day surgery (SDC) | payer MEDICARE ==
[2017-06-27 10:06] LABS: MEAN CORPUSCULAR HEMOGLOBIN 31.2 pg (27.0-33.4); MEAN CORPUSCULAR HGB CONC 34.3 g/dL (32.0-36.0); MEAN CORPUSCULAR VOLUME 91 fl (80-97); RED BLOOD COUNT 4.18 10^6/uL (3.72-5.28); RED CELL DISTRIBUTION WIDTH 13.3 % (11.5-14.0)
[2017-06-27 10:34] LABS: ANION GAP 9 (5-19); BLOOD UREA NITROGEN 27 mg/dL (7-20); CALCIUM 10.9 mg/dL (8.4-10.2); CARBON DIOXIDE 30 mmol/L (22-30); CHLORIDE 106 mmol/L (98-107); CREATININE RESULT 1.08 mg/dL (0.52-1.25); GLUCOSE 109 mg/dL (75-110); POTASSIUM 3.9 mmol/L (3.6-5.0)
--- NOTE | 2017-06-27 13:34 | EKG REPORT ---
SEVERITY:- ABNORMAL ECG - SINUS RHYTHM SUPRAVENTRICULAR BIGEMINY : Confirmed by: Manuel Brooks MD 27-Jun-2017 13:33:45
[~2017-07-04 07:21] MED LIST: CEFAZOLIN 1 GM/D5W RTU 1 GM/50 ML RTUPB IV PRN; DEXTROSE 5%-LACTATED RINGERS 1,000 ML IV PRN; LIDOCAINE 0.5% INJ-PF (5 MG/ML) 50 ML SDV INJ PRN; LIDOCAINE 4% TRANSPARENT DRESSING 5 GM KIT TP PRN; RINGERS SOLUTION,LACTATED 1,000 ML IV PRN
[2017-07-04] MEDS ORDERED: METHYLENE BLUE 50 MG/10 ML AMPULE ONE (09:29)
[2017-07-04] MEDS ORDERED: LIDOCAINE 0.5%/EPINEPHRINE INJ 50 ML VIAL ONE ×2 (09:31→12:22)
[2017-07-04] MEDS ORDERED: FENTANYL CITRATE INJ/PF 250 MCG/5 ML AMPULE ONE (09:57)
[2017-07-04] MEDS ORDERED: MIDAZOLAM 2 MG/2 ML INJ ONE (09:57)
[2017-07-04] MEDS ORDERED: FENTANYL CITRATE INJ/PF 100 MCG/2 ML AMPUL ONE (09:57)
[2017-07-04] MEDS ORDERED: PROPOFOL INJ 200 MG/20 ML VIAL IV ONE (09:58)
[2017-07-04] MEDS ORDERED: ACETAMINOPHEN 100 ML IV ONE (09:58)
[2017-07-04] MEDS ORDERED: MICROFIBRILLAR COLLAGEN 1 GM PACK ONE (10:37)
--- NOTE | 2017-07-04 10:54 | RADIOLOGY REPORT (SQ) ---
EXAM DESCRIPTION: NM LYMPHATICS/LYMPH GLANDS COMPLETED DATE/TIME: 07/04/2017 9:51 am REASON FOR STUDY: MALIGNANT NEOPLASM BREAST CA C50.919 MALIGNANT NEOPLASM OF UNSP SITE OF UNSPECIFI ED FEMAL COMPARISON: None. RADIONUCLIDE AND DOSE: 579 microcuries TC-99mtilmanocept - Lymphoseek. The route of agent administration: Subcutaneous in the skin. TECHNIQUE: The skin of the left periareolar breast was prepped in sterile fashion. The radiopharmac eutical was administered in equally divided doses, intradermally in the periareolar breast. LIMITATIONS: None. FINDINGS: Images demonstrate activity at the injection site. Migration of activity towards the left axilla. [place] node marked on the skin. IMPRESSION: ADMINISTRATION OF RADIOPHARMACEUTICAL FOR SENTINEL LYMPH NODE EVALUATION. TECHNICAL DOCUMENTATION: JOB ID: [id number] [employer]- All Rights Reserved
[2017-07-04] MEDS ORDERED: MORPHINE SULFATE 10 MG/ML INJ IV PRN (11:29)
[2017-07-04] MEDS ORDERED: PROMETHAZINE HCL INJ 25 MG/1 ML VIAL IV PRN ×2 (11:29)
[2017-07-04] MEDS ORDERED: FENTANYL CITRATE INJ/PF 100 MCG/2 ML AMPUL IV PRN ×3 (11:29)
[2017-07-04] MEDS ORDERED: OXYCODONE-ACETAMINOPHEN 5-325 MG TABLET PO PRN ×3 (11:29→12:57)
[2017-07-04] MEDS ORDERED: DIPHENHYDRAMINE HCL 50 MG/ML VIAL IV PRN (11:29)
[2017-07-04] MEDS ORDERED: MEPERIDINE HCL/PF INJ 25 MG/1 ML DISP.SYRIN IV PRN (11:29)
[2017-07-04] MEDS ORDERED: ONDANSETRON HCL INJ/PF 4 MG/2 ML SDV IV PRN (12:57)
--- NOTE | 2017-07-04 12:57 | PDOC DISCHARGE SUMMARY ---
Discharge Summary (SDC) - Discharge Final Diagnosis: Right port a cath placement, left breast mastectomy with [place] lymph node biopsy Date of Surgery: 07/04/17 Discharge Date: 07/04/17 Condition: Stable Treatment or Instructions: [facility] [address] [place] [id number] Care Instructions Following Your Mastectomy Activities: Resume normal activities when you feel comfortable. It is best to remain as active as possible to speed your recovery. It is common to experience some fatigue after surgery and you may find that short naps are helpful. Avoid strenuous activity such as weight lifting, tennis, etc at your surgical site for two weeks. Perform gentle arm exercises daily and do not favor your operative arm to due increased risk of mobility issues postoperatively. No driving for 7 days after surgery. Do not drive if you are taking pain medication other than Tylenol or Ibuprofen. No swimming, tub baths or soaking in a hot tub for 4 weeks. There are no dietary restrictions. Do not smoke as this impairs wound healing. Surgical Site care: Remove your dressing 48 hours after surgery. Leave the steri-strips underneath in place. You may shower after removing the dressing to include washing the wound with soap and water using your hands. Do not scrub the incision. Pat the area dry with a towel. You do not need to recover the wound although some patients find that they feel more comfortable using a light dressing for a few days to absorb any minimal drainage which may occur. Many patients also find that keeping a dressing around the drain exit site is helpful to absorb any drainage which may leak around the tubing. If you use a dressing in this manner change it at least every day. Do not use heating pad or apply an ice pack to the operative site. You may apply deodorant if you are careful to avoid getting it on the wound itself. Empty the bulbs attached to the drain every 12 hours and measure the fluid output separately from each drain. Please also strip each drain each time you empty it to prevent clogging. Keep a record of the output and bring this record with you each time you come to the office for postoperative care. A drain is ready to be removed when its output is 30 mL per 24 hours per drain for 2 consecutive days. Please call the office to inform our staff that you need to come in for drain removal. Medications: Take Motrin (ibuprofen) 600 mg to 800 mg every 8 hours around the clock. You may taper this medication as you experience less pain. Take narcotic pain control such as Tylenol #3 or Percocet one to tablets every six hours as needed for breakthrough pain. Do not take over the counter Tylenol if you are taking either Tylenol #3 or Percocet. Again, you cannot drive while taking narcotic pain medication. Resume all of your normal prescription medications after your surgery unless instructed otherwise. You may experience constipation after surgery while taking pain medications. If using a narcotic on a regular basis, take a stool softener such as Colace twice a day. It is helpful to stay hydrated by drinking lots of fluids. Walking is also helpful and is good exercise after surgery. If you need extra help, use Milk of Magnesia according to the directions on the package. Follow-up: Call our office at to make a follow-up appointment in 10-14 days. Your doctor will call to discuss the pathology report with you as soon as it is available. Concerns: If you had a sentinel lymph node biopsy with your mastectomy, your urine may have a greenish discoloration. This is normal and will resolve as the blue dye slowly leaves your system. If you notice significant leakage around the drains , this is not normal. The drains may be clogged. Please call our office to come in immediately for the drains to be checked. Some bruising may occur and will go away over time. If you have a fever of 101.5 or greater, chills, redness at the incision site, excessive drainage from your wound or severe pain not relieved by pain medication, call your doctor. A physician is available 24 hours a day 7 days a week in addition to regular office hours. If problems arise after normal office hours please call the hospital at . Please call if you have any questions or concerns. Prescriptions: Acetaminophen with Codeine [Tylenol #3 Tablet] 1 each PO Q6HP PRN #30 tablet PRN Reason: Discharge Diet: As Tolerated Respiratory Treatments at Home: Deep Breathing/Coughing Discharge Activity: Activity As Tolerated Report the Following to Your Physician Immediately: Vomiting, Fever over 101 Degrees, Redness, Swelling, Warmth, Drainage-Foul Smelling
--- NOTE | 2017-07-04 13:06 | Operative Report ---
Operative Report DATE OF SURGERY: 07/04/17 PREOPERATIVE DIAGNOSIS: 1. Invasive left breast carcinoma, ER negative SD negative, HER-2 positive. 2. COPD POSTOPERATIVE DIAGNOSIS: Same OPERATION: 1. Focused ultrasound of the right neck. 2. Ultrasound directed insertion of single-lumen. Ioqtgu-h-Gjzx catheter into the right internal jugular vein. 3. Interpretation of intraoperative fluoroscopy. 4. left mastectomy with sentinel lymph node biopsy and drainage of left chest wall SURGEON: TERRENCE SIMMS [employer] SUPERVISOR: BETTYE MARTINEZ ANESTHESIA: GA TISSUE REMOVED OR ALTERED: Left breast with partial axillary contents; sentinel lymph node COMPLICATIONS: Current ESTIMATED BLOOD LOSS: Minimal INTRAOPERATIVE FINDINGS: See below PROCEDURE: The patient was taken to the radiology suite she underwent lymphoscintigraphy of the left breast which showed increased uptake in the left axilla consistent with successful mapping. The patient was then taken to the main operating room where general anesthesia was induced via LMA. The right arm was tucked at patient's bedside left arm abducted in the right neck chest wall left breast and left axilla all prepped and draped in sterile fashion. Surgical plan and surgical timeout were conducted. The patient neck was rotated to the left and extended slightly. We performed the first portion of the operation, Port-A-Cath insertion, on the right side. The skin was any stopped 1% lidocaine with epinephrine, adonis made the skin with 11 blade, and the micro needle and wire was threaded into the right internal jugular vein under ultrasonographic site. A suitable site for placement of the port was chosen in the right subclavian position. Skin again anesthetized with 1% lidocaine plain. A 3-1/2 cm incision was made parallel to the clavicle. Port pocket developed large enough to accommodate a single-chamber port. Catheter was tunneled between the 2 wounds, trimmed to the appropriate length and secured to the port with the plastic ring The microwire was transferred over a micro-introducer to a conventional 0.030 inch guidewire. Under fluoroscopic guidance real-time, a dilator introducer sheath was threaded over the wire, wire and dilator removed, and catheter threaded into the right internal jugular vein uneventfully. Under fluoroscopic confirmation, tip of the catheter is in severe vena cava, there is no kinking of the catheter, the catheter was aspirated and flushed with dilute heparinized saline. Wounds closed with 3-0 Vicryl benzoin and Steri -Strips. The second portion of the operation was now undertaken. Markings for planned left mastectomy performed. Skin anesthetized 1% lidocaine plain. An elliptical incision was made with a #10 blade. Superior and inferior skin flaps were raised with the level of dissection being taken to the sternum medially, the subclavicular area superiorly, the serratus anterior muscle inferiorly and the deep space of the axilla laterally. The breast was taken off uneventfully from the chest wall. We continued the tail of Ledbetter elevation off of the pectoralis major then pectoralis minor. At the beginning of the operation, the right breast was injected with approximately 2 cc of full-strength methylene blue, areole or border, intradermal, 2 o'clock position, and the breast massaged. This completed the dual mapping technique for the sentinel node biopsy. We now had excellent exposure to the lower axilla. Unfortunately using the neoprobe, the entire axilla was hot. There was excessive amount of signal activity throughout the entire chest wall so probe was not able to guide our dissection. Also for unknown reasons, the blue mapping technique was unsuccessful. Therefore we simply took the lower aspect of the axilla in continuity with the tail of Ledbetter. Once the breast and lower axillary contents were off of the patient's chest wall, we ran the neoprobe over the tail of Ledbetter and there was an exceptional amount of radioactivity. This confirmed acquisition of low axillary lymph node that presumably represented sentinel nodes. We went back to the axilla and there was one area of moderately increased activity in this small little area of fatty and lymphatic tissue was excised and labeled as sentinel node. It was not blue and its activity was approximately 1000 counts. We returned to the axilla and check for any residual activity and there was minimal amount. We felt the operation was complete. Right arm was 80 deducted , a drain placed in the lower skin flap, large [place] is SECURED To the skin with 2-0 Prolene suture, and skin flaps closed with a running 2-0 Vicryl suture and skin closed with skin glue. Patient tolerated procedure well extubated successfully every room in stable condition. The PA, Bettye Naqvi, assisted with tissue retraction, flap elevation, and wound closure.
--- NOTE | 2017-07-04 13:45 | RADIOLOGY REPORT (SQ) ---
EXAM DESCRIPTION: FLUORO/CV PLACEMENT COMPLETED DATE/TIME: 07/04/2017 12:06 pm REASON FOR STUDY: PORTACATH IN OR GUIDED BY FLUORO C50.919 MALIGNANT NEOPLASM OF UNSP SITE OF UNSPE CIFIED FEMAL COMPARISON: AP chest 02/21/2017, 07/04/2017 FLUOROSCOPY TIME: Less than 5 seconds 2 C-arm digital images saved to PACS. TECHNIQUE: Intra-operative images acquired during surgical procedure to evaluate progress. NUMBER OF IMAGES: 2 digital C-arm images LIMITATIONS: None. FINDINGS: Intra procedural imaging and fluoro during permanent central line placement by surgery. Caryn frias see the operative report for further details IMPRESSION: Intra procedural imaging and fluoro COMMENT: Quality ID 145: Final reports for procedures using fluoroscopy that document radiation exp osure indices, or exposure time and number of fluorographic images (if radiation exposure indices are not available) Please consult full operative report of the attending physician for description of the procedure. TECHNICAL DOCUMENTATION: JOB ID: [id number] [employer]- All Rights Reserved
[2017-07-04] MEDS ORDERED: DEXAMETHASONE SOD PHOSPHATE INJ 4 MG/1 ML VIAL ONE (14:12)
[2017-07-04] MEDS ORDERED: ONDANSETRON HCL INJ/PF 4 MG/2 ML SDV ONE (14:12)
[2017-07-04] MEDS ORDERED: LIDOCAINE 2% INJ-PF (20 MG/ML) 10 ML AMPUL ONE (14:12)
--- NOTE | 2017-07-04 14:25 | RADIOLOGY REPORT (SQ) ---
EXAM DESCRIPTION: CHEST SINGLE VIEW COMPLETED DATE/TIME: 07/04/2017 1:29 pm REASON FOR STUDY: Port a cath COMPARISON: None. EXAM PARAMETERS: NUMBER OF VIEWS: One view. TECHNIQUE: Single frontal radiographic view of the chest acquired. RADIATION DOSE: NA LIMITATIONS: None. FINDINGS: LUNGS AND PLEURA: No opacities, masses or pneumothorax. No pleural effusion. MEDIASTINUM AND HILAR STRUCTURES: No masses. Contour normal. HEART AND VASCULAR STRUCTURES: Heart normal in size. Normal vasculature. BONES: No acute findings. HARDWARE: A right internal jugular catheter has its tip in the superior vena cava. A thoracotomy tub e is in place on the left. OTHER: No other significant finding. IMPRESSION: Findings and as described. TECHNICAL DOCUMENTATION: JOB ID: [id number]
[2017-07-04] MEDS ORDERED: KETOROLAC TROMETHAMINE INJ/PF 30 MG/1 ML SDV ONE (14:47)
[2017-07-04] MEDS ORDERED: KETOROLAC TROMETHAMINE INJ/PF 30 MG/1 ML SDV INJ ONE (14:50)
[2017-07-04 17:30] VITALS: BP 105/52
== END 2017-07-04 15:50 | disposition home or self-care (01) ==
LOC: OROUT 07:21
PROVIDERS: ATTEND Surgery
PROC: 05HM33Z Insertion of Infusion Device into Right Internal Jugular Vein, Percutaneous Approach (ICD-10-PCS; 2017-07-04)
PROC: 0HTU0ZZ Resection of Left Breast, Open Approach (ICD-10-PCS; principal; 2017-07-04 11:00)
PROC: 07B60ZX Excision of Left Axillary Lymphatic, Open Approach, Diagnostic (ICD-10-PCS; 2017-07-04 11:00)
DX: C50.919 Malignant neoplasm of unspecified site of unspecified female breast (principal); J44.9 Chronic obstructive pulmonary disease, unspecified; I10 Essential (primary) hypertension; Z79.899 Other long term (current) drug therapy; Z79.51 Long term (current) use of inhaled steroids; Z95.5 Presence of coronary angioplasty implant and graft; F32.9 Major depressive disorder, single episode, unspecified; C50.812 Malignant neoplasm of overlapping sites of left female breast; C77.3 Secondary and unspecified malignant neoplasm of axilla and upper limb lymph nodes
CPT/HCPCS: 93005; 36415; 85027; 80048; 71010; 77001; 78195; 93010; 19307; 36561; C1769; C1752; C1788; A9520; J2250; J0690; J1100; J3010; J3490 ×3; J1885; J2405; J2704; J1642; J0131; Q9968; 532

== ENCOUNTER → 2017-08-17 | Outpatient (CLI) | payer MEDICARE ==
--- NOTE | 2017-08-17 12:42 | RADIOLOGY REPORT (SQ) ---
EXAM DESCRIPTION: NM WHOLE BODY BONE SCAN COMPLETED DATE/TIME: 08/17/2017 12:33 pm REASON FOR STUDY: MAL DIGNA OF NIPPLE AND AREOLA, L FEMALE BREAST C50.012 MALIGNANT NEOPLASM OF NIPPL E AND AREOLA, LEFT FEMALE COMPARISON: Chest film 07/04/2017 RADIONUCLIDE AND DOSE: 19.9 millicuries Tc99m MDP. The route of agent administration: Intravenous. ADDITIONAL DRUGS AND DOSES: None. TECHNIQUE: Routine delayed images at 3 hour post radionuclide injection acquired of the bony skeleto n including anterior and posterior whole-body projections and additional focused images as needed. LIMITATIONS: None. FINDINGS: BONES: Normal visualization without areas of photopenia or increased bony uptake of radiop harmaceutical. Mild spotty increased uptake in the right and left midfoot, likely due to osteoarthri tis KIDNEYS: Symmetric excretion without obstruction. OTHER: No other significant finding. IMPRESSION: No bone scan evidence of metastatic breast cancer COMMENT: Quality measure 147: Current bone scan is compared with any available plain radiographs, p rior bone scans, and CT/MRI. TECHNICAL DOCUMENTATION: JOB ID: [id number] [employer]- All Rights Reserved
== END ==
LOC: RAD 08:08
PROVIDERS: ATTEND Internal Medicine
DX: C50.012 Malignant neoplasm of nipple and areola, left female breast (principal)
CPT/HCPCS: 78306; A9561; Q9969

== ENCOUNTER → 2017-08-20 | Outpatient (CLI) | payer MEDICARE ==
--- NOTE | 2017-08-20 09:49 | RADIOLOGY REPORT (SQ) ---
EXAM DESCRIPTION: CT CHEST WITH; CT ABD/PELVIS WITH IV ONLY COMPLETED DATE/TIME: 08/20/2017 9:19 am REASON FOR STUDY: BREAST CA C50.012 MALIGNANT NEOPLASM OF NIPPLE AND AREOLA, LEFT FEMALE COMPARISON: CT angio chest 11/07/2011, CT chest 02/13/2017 Bone scan 08/17/2017 CONTRAST TYPE AND DOSE: contrast/concentration: Isovue 370.00 mg/ml; Total Contrast Delivered: 74.0 ml; Total Saline Delivered: 47.3 ml RENAL FUNCTION: Creatinine 1.1 TECHNIQUE: CT scan of the chest performed using helical scanning technique with dynamic intravenous contrast injection. Images reviewed with lung, soft tissue and bone windows. Reconstructed coronal a nd sagittal MPR images reviewed. All images stored on PACS. CT scan of the abdomen and pelvis performed with intravenous and without oral contrastusing helical s tomi technique with dynamic intravenous contrast injection. Images reviewed with lung, soft tissu e and bone windows. Reconstructed coronal and sagittal MPR images reviewed. Delayed images for eval uation of the urinary system also acquired and evaluated. All images stored on PACS. All CT scanners at this facility use dose modulation, iterative reconstruction, and/or weight based d osing when appropriate to reduce radiation dose to as low as reasonably achievable (ALARA). [facility]: Dose Right [facility]: CareDose [facility]: Dose Right [facility]: Teradose 4D [facility]: [employer] RADIATION DOSE: Up-to-date CT equipment and radiation dose reduction techniques were employed. CTDIv ol: 5.0 - 7.8 mGy. DLP: 937 mGy-cm. . LIMITATIONS: None. FINDINGS: CHEST: LUNGS AND PLEURA: Moderate changes of obstructive lung disease. No dense consolidation worrisome for pneumonia. A 4 mm nodule is present in the medial right upper lobe on axial image 29. A 7 mm nodule is present in the lateral aspect right upper lobe just above the minor fissure axial image 60. There is minimal atelectasis in the right lateral costophrenic sulcus on axial images 83-87. No pleural effusions. No pneumothorax. Calcified granuloma right upper lobe image 38. HILAR AND MEDIASTINAL STRUCTURES: No identified masses or abnormal nodes. HEART AND VASCULAR STRUCTURES: No aneurysm or dissection. No central pulmonary emboli. No pericardi al effusion. Moderate coronary artery calcification HARDWARE: Right jugular central line tip superior vena cava. THYROID AND OTHER SOFT TISSUES: Post left mastectomy. Since the prior scan, patient has developed a 10 x 9 mm left axillary lymph node along the lateral ed ge of the pectoralis muscle on axial image 16. BONES: Old left posterior rib fracture. OTHER: No other significant finding. ABDOMEN AND PELVIS: LIVER: Normal size. No masses. No dilated ducts. SPLEEN: Normal size. No focal lesions. PANCREAS: No masses. No significant calcifications. No adjacent inflammation or peripancreatic fluid collections. Pancreatic duct not dilated. GALLBLADDER: Multiple stones in the gallbladder ADRENAL GLANDS: No significant masses or asymmetry. RIGHT KIDNEY AND URETER: No solid masses. No significant calcification. No hydronephrosis or hydroure ter. LEFT KIDNEY AND URETER: No solid masses. No significant calcification. No hydronephrosis or hydrouret er. AORTA AND VESSELS: No aneurysm. No dissection. Renal arteries, SMA, celiac without stenosis. RETROPERITONEUM: No retroperitoneal adenopathy, hemorrhage or masses. BOWEL AND PERITONEAL CAVITY: No masses or inflammatory changes. No free fluid or peritoneal masses. APPENDIX: Normal. ABDOMINAL WALL: No masses. No hernias. BONES: No significant or acute findings. PELVIS: No masses or adenopathy. Normal size uterus and ovaries, with a 3.3 cm uterine fundal fibroi d. IMPRESSION: Post left mastectomy. 10 x 9 mm left axillary lymph node Small lung parenchymal nodules in the periphery of the right upper lobe, nonspecific Gallstones without gallbladder wall thickening. TECHNICAL DOCUMENTATION: JOB ID: [id number] Quality ID # [id number]: Final reports with documentation of one or more dose reduction techniques (e.g., Au tomated exposure control, adjustment of the mA and/or kV according to patient size, use of iterative reconstruction technique) 2010 [employer]- All Rights Reserved
== END ==
LOC: RAD 08:12
PROVIDERS: ATTEND Internal Medicine
DX: C50.012 Malignant neoplasm of nipple and areola, left female breast (principal); R91.8 Other nonspecific abnormal finding of lung field; K80.80 Other cholelithiasis without obstruction
CPT/HCPCS: 71260; 74177

== ENCOUNTER → 2017-08-26 | Outpatient (CLI) | payer MEDICARE ==
--- NOTE | 2017-08-27 08:55 | RADIOLOGY REPORT (SQ) ---
EXAM DESCRIPTION: PET CT SKULL/THIGH COMPLETED DATE/TIME: 08/26/2017 8:05 pm REASON FOR STUDY: BREAST CANCER C50.012 MALIGNANT NEOPLASM OF NIPPLE AND AREOLA, LEFT FEMALE COMPARISON: None. RADIONUCLIDE AND DOSE: 12.7 mCi F18 FDG The route of agent administration: Intravenous FASTING BLOOD SUGAR: 98 mg/dl CONTRAST TYPE AND DOSE: No CT contrast given. TECHNIQUE: Blood glucose level was verified. Above dose of FDG was injected intravenously. 2-D seg mented attenuation correction images were obtained from the base of the skull to the midthighs. Nonc ontrast CT images were obtained for attenuation correction and fusion with emission images. CT image s were performed without oral or intravenous contrast and are not sensitive for parenchymal lesions. A series of overlapping emission PET images were obtained. [facility] by the radiologist. Images stored on PACS. LIMITATIONS: None. FINDINGS: HEAD AND NECK: No areas of abnormal metabolic activity in the soft tissues of the head and neck. CHEST: There are several subcentimeter nodules in both lungs, some of which are calcified granulomas. Largest nodule is noncalcified in the lateral segment of the middle lobe measures 8 mm with maximum SUV 2.7. Small mediastinal nodes, several of which are calcified. None are hypermetabolic. ABDOMEN AND PELVIS: No areas of abnormal metabolic activity in the abdomen or pelvis. Expected physi ologic activity is present in the genitourinary system and bowel. PROXIMAL LOWER EXTREMITIES: No areas of abnormal metabolic activity in the soft tissues of the lower extremities. BONES: No abnormal metabolic activity in the visualized skeleton. ADDITIONAL CT FINDINGS: Status post left mastectomy. Cholelithiasis. OTHER: No other significant findings. IMPRESSION: Mildly hypermetabolic subcentimeter right lung nodule. Old granulomatous disease in the lungs. No hypermetabolic lesions below the diaphragm. TECHNICAL DOCUMENTATION: JOB ID: [id number] [employer]- All Rights Reserved
== END ==
LOC: RAD 16:39
PROVIDERS: ATTEND Internal Medicine
DX: C50.012 Malignant neoplasm of nipple and areola, left female breast (principal); R91.1 Solitary pulmonary nodule
CPT/HCPCS: 78815; A9552

== ENCOUNTER → 2017-10-12 | Outpatient (CLI) | payer MEDICARE ==
--- NOTE | 2017-10-12 14:04 | RADIOLOGY REPORT (SQ) ---
EXAM DESCRIPTION: NM MUGA REST COMPLETED DATE/TIME: 10/12/2017 12:18 pm REASON FOR STUDY: C50.012 MALIGNANT NEOPLASM OF NIPPLE AND AREOLA, LEFT FEMALE BREAST C50.012 MALIG NANT NEOPLASM OF NIPPLE AND AREOLA, LEFT FEMALE COMPARISON: No prior MUGA exam RADIONUCLIDE AND DOSE: 24.5 mCi of technetium 99 M pyrophosphate was tagged to the patient's own red cells. The route of agent administration: Intravenous TECHNIQUE: Following administration of the radionuclide, gated images of the heart are obtained in t hree projections. Left ventricular functional analysis performed. LIMITATIONS: None. FINDINGS: LEFT VENTRICULAR FUNCTION: EJECTION FRACTION: 68%. END-DIASTOLIC VOLUME: 87 mL. END-SYSTOLIC VOLUME: 28 mL. WALL MOTION: No focal wall motion abnormalities. OTHER: No other significant finding. IMPRESSION: NORMAL CARDIAC MUGA STUDY. NORMAL LEFT VENTRICULAR FUNCTION WITH VALUES ABOVE. TECHNICAL DOCUMENTATION: JOB ID: [id number] [employer]- All Rights Reserved
== END ==
LOC: RAD 10:55
PROVIDERS: ATTEND Internal Medicine
DX: C50.012 Malignant neoplasm of nipple and areola, left female breast (principal)
CPT/HCPCS: 78472; A9560; Q9969

== ENCOUNTER 2018-01-02 13:10 | Inpatient (IN) | payer MEDICARE ==
[2018-01-02] MEDS ORDERED: NORMAL SALINE 1000 ML 500 ML IV ONE (13:51)
--- NOTE | 2018-01-02 13:53 | ER Document Report ---
ED Medical Screen (RME) - General Chief Complaint: Flu Symptoms Stated Complaint: COUGH Time Seen by Provider: 01/02/18 13:51 Notes: Patient states that she was diagnosed with pneumonia today at an outlying facility. She states that she was unable to be admitted to this facility so she called her oncologist. Her oncologist, Dr. Johnson, called and spoke with me. He states he recommends the patient be admitted. He states he referred the patient to our facility for admission. Patient has a history of breast cancer and last chemotherapy 2 weeks ago. TRAVEL OUTSIDE OF THE [place] IN LAST 30 DAYS: No - Related Data Allergies/Adverse Reactions: No Known Allergies Allergy (Unverified 06/26/17 09:48) Past Medical History - Social History Chew tobacco use (# tins/day): No Frequency of alcohol use: None Drug Abuse: None - Past Medical History Cardiac Medical History: Reports: Hx Heart Attack, Hx Hypercholesterolemia, Hx Hypertension Denies: Hx Coronary Artery Disease, Hx Heart Murmur Pulmonary Medical History: Reports: Hx COPD, Hx Pneumonia - MULTIPLE TIMES Denies: Hx Asthma, Hx Bronchitis, Hx Respiratory Failure, Hx Sleep Apnea, Hx Tuberculosis Neurological Medical History: Denies: Hx Cerebrovascular Accident, Hx Seizures Renal/ Medical History: Denies: Hx Peritoneal Dialysis Malignancy Medical History: Denies: Hx Lung Cancer Musculoskeltal Medical History: Reports Hx Arthritis Psychiatric Medical History: Reports: Hx Dementia - Alzheimer's, Hx Depression, Hx Schizophrenia Past Surgical History: Reports: Hx Cardiac Catheterization - Stent x2. Denies: Hx Pacemaker - Immunizations Immunizations up to date: Yes Hx Diphtheria, Pertussis, Tetanus Vaccination: Yes Physical Exam - Vital signs Vitals: Temp Pulse Resp BP Pulse Ox 98.8 F 78 16 136/81 H 97 01/02/18 13:20 01/02/18 13:20 01/02/18 13:20 01/02/18 13:20 01/02/18 13:20 Course - Vital Signs Vital signs: Temp Pulse Resp BP Pulse Ox 98.8 F 78 16 136/81 H 97 01/02/18 13:20 01/02/18 13:20 01/02/18 13:20 01/02/18 13:20 01/02/18 13:20
--- NOTE | 2018-01-02 15:00 | ER Document Report ---
ED General - General Chief Complaint: Flu Symptoms Stated Complaint: COUGH Time Seen by Provider: 01/02/18 13:51 TRAVEL OUTSIDE OF THE [place] IN LAST 30 DAYS: No - HPI Patient complains to provider of: weakness fatigue Notes: Increasing cough weakness and fatigue. Patient has history of breast cancer followed by oncology in the community. Diagnosed with a pneumonia up at [facility]. At hospitals at maximum capacity the recommended discharge follow-up with PCP. She contacted her oncologist who recommended evaluation in our emergency department. - Related Data Allergies/Adverse Reactions: No Known Allergies Allergy (Unverified 06/26/17 09:48) Past Medical History - Social History Smoking Status: Former Smoker Chew tobacco use (# tins/day): No Frequency of alcohol use: None Drug Abuse: None Family History: None Patient has suicidal ideation: No Patient has homicidal ideation: No - Past Medical History Cardiac Medical History: Reports: Hx Heart Attack, Hx Hypercholesterolemia, Hx Hypertension Denies: Hx Coronary Artery Disease, Hx Heart Murmur Pulmonary Medical History: Reports: Hx COPD, Hx Pneumonia - MULTIPLE TIMES Denies: Hx Asthma, Hx Bronchitis, Hx Respiratory Failure, Hx Sleep Apnea, Hx Tuberculosis Neurological Medical History: Denies: Hx Cerebrovascular Accident, Hx Seizures Renal/ Medical History: Denies: Hx Peritoneal Dialysis Malignancy Medical History: Denies: Hx Lung Cancer Musculoskeltal Medical History: Reports Hx Arthritis Psychiatric Medical History: Reports: Hx Dementia - Alzheimer's, Hx Depression, Hx Schizophrenia Past Surgical History: Reports: Hx Cardiac Catheterization - Stent x2. Denies: Hx Pacemaker - Immunizations Immunizations up to date: Yes Hx Diphtheria, Pertussis, Tetanus Vaccination: Yes Hx Pneumococcal Vaccination: 08/06/13 Review of Systems - Review of Systems Constitutional: Malaise, Weakness EENT: No symptoms reported Cardiovascular: No symptoms reported Respiratory: Cough Gastrointestinal: Nausea, Vomiting Genitourinary: No symptoms reported Female Genitourinary: No symptoms reported Musculoskeletal: No symptoms reported Skin: No symptoms reported Hematologic/Lymphatic: No symptoms reported Neurological/Psychological: No symptoms reported Physical Exam - Vital signs Vitals: Temp Pulse Resp BP Pulse Ox 98.8 F 78 16 136/81 H 97 01/02/18 13:20 01/02/18 13:20 01/02/18 13:20 01/02/18 13:20 01/02/18 13:20 Interpretation: Normal - General General appearance: Appears well, Alert - HEENT Head: Normocephalic, Atraumatic Eyes: Normal Pupils: PERRL - Respiratory Respiratory status: No respiratory distress Chest status: Nontender Breath sounds: Normal Chest palpation: Normal - Cardiovascular Rhythm: Regular Heart sounds: Normal auscultation Murmur: No - Abdominal Inspection: Normal Distension: No distension Bowel sounds: Normal Tenderness: Nontender Organomegaly: No organomegaly - Back Back: Normal, Nontender - Extremities General upper extremity: Normal inspection, Nontender, Normal color, Normal ROM , Normal temperature General lower extremity: Normal inspection, Nontender, Normal color, Normal ROM , Normal temperature, Normal weight bearing. No: Diomedes's sign - Neurological Neuro grossly intact: Yes Cognition: Normal Orientation: AAOx4 [place] Coma Scale Eye Opening: Spontaneous Alanna Coma Scale Verbal: Oriented [place] Coma Scale Motor: Obeys Commands Alanna Coma Scale Total: 15 Speech: Normal Motor strength normal: LUE, RUE, LLE, RLE Sensory: Normal - Psychological Associated symptoms: Normal affect, Normal mood - Skin Skin Temperature: Warm Skin Moisture: Dry Skin Color: Normal Course - Re-evaluation Re-evalutation: 01/02/18 16:11 72-year-old female history of breast cancer presents with apparent pneumonia. Patient given fluid resuscitation and started on ceftriaxone and azithromycin in the emergency department. Patient's extensive lab work as documented above. Will be admitted to the hospital for definitive management. 01/02/18 16:35 Labs relatively unremarkable no leukocytosis speak of normal lactic acid and kidney function. - Vital Signs Vital signs: Temp Pulse Resp BP Pulse Ox 98.8 F 78 16 136/81 H 97 01/02/18 13:20 01/02/18 13:20 01/02/18 13:20 01/02/18 13:20 01/02/18 13:20 - Laboratory Result Diagrams: 01/02/18 15:28 01/02/18 15:28 Laboratory results interpreted by me: 01/02/18 01/02/18 01/02/18 15:28 15:28 15:28 Hgb 11.9 L Hct 35.8 L RDW 14.6 H Monocytes % (Manual) 17 H Est GFR (Non-Af Amer) 58 L Lactic Acid 0.6 L Calcium 10.6 H Total Protein 6.1 L - EKG Interpretation by Me Additional EKG results interpreted by me: 01/02/18 16:34 Sinus rhythm, normal axis, no ST elevations or depression Discharge - Discharge Clinical Impression: Pneumonia Qualifiers: Pneumonia type: due to unspecified organism Laterality: left Lung location: lower lobe of lung Qualified Code(s): J18.1 - Lobar pneumonia, unspecified organism Condition: Stable Disposition: ADMITTED INPATIENT Admitting Provider: [facility] Unit Admitted: Medical Floor Referrals: LINDSAY RICK MD [Primary Care Provider] - Follow up as needed
[2018-01-02] MEDS ORDERED: CEFTRIAXONE 1 GM/D5W RTU 50 ML IV ONE (15:10)
[2018-01-02] MEDS ORDERED: AZITHROMYCIN INJ 500 MG VIAL IV ONE (15:11)
--- NOTE | 2018-01-02 15:30 | RADIOLOGY REPORT (SQ) ---
EXAM DESCRIPTION: CHEST SINGLE VIEW COMPLETED DATE/TIME: 01/02/2018 2:40 pm REASON FOR STUDY: cough/hx pna COMPARISON: June 2017 EXAM PARAMETERS: NUMBER OF VIEWS: One view. TECHNIQUE: Single frontal radiographic view of the chest acquired. RADIATION DOSE: NA LIMITATIONS: None. FINDINGS: LUNGS AND PLEURA: No opacities, masses or pneumothorax. No pleural effusion. MEDIASTINUM AND HILAR STRUCTURES: No masses. Contour normal. HEART AND VASCULAR STRUCTURES: Heart normal in size. Normal vasculature. BONES: No acute findings. HARDWARE: Right internal jugular venous catheter is unchanged in position. OTHER: No other significant finding. IMPRESSION: NO ACUTE RADIOGRAPHIC FINDING IN THE CHEST. TECHNICAL DOCUMENTATION: JOB ID: [id number] [employer]- All Rights Reserved
[2018-01-02 15:47] LABS: VENOUS BLOOD BASE EXCESS 0.5 mmol/L; VENOUS BLOOD HCO3 25.6 mmol/L (20-32); VENOUS BLOOD PCO2 42.8 mmHg (35-63); VENOUS BLOOD PH 7.4 (7.30-7.42)
[2018-01-02 15:52] LABS: HEMATOCRIT 35.8 % (36.0-47.0); HEMOGLOBIN 11.9 g/dL (12.0-15.5); MEAN CORPUSCULAR HGB CONC 33.3 g/dL (32.0-36.0); MEAN CORPUSCULAR VOLUME 87 fl (80-97); PLATELET COUNT 178 10^3/uL (150-450); RED BLOOD COUNT 4.11 10^6/uL (3.72-5.28); RED CELL DISTRIBUTION WIDTH 14.6 % (11.5-14.0); WHITE BLOOD COUNT 6.6 10^3/uL (4.0-10.5)
[2018-01-02 16:09] LABS: ALANINE AMINOTRANSFERASE 18 U/L (9-52); ALBUMIN 3.9 g/dL (3.5-5.0); ALKALINE PHOSPHATASE 81 U/L (38-126); ANION GAP 10 (5-19); ASPARTATE AMINO TRANSFERASE 24 U/L (14-36); BILIRUBIN,DIRECT 0.1 mg/dL (0.0-0.4); BILIRUBIN,TOTAL 0.4 mg/dL (0.2-1.3); BLOOD UREA NITROGEN 14 mg/dL (7-20); CALCIUM 10.6 mg/dL (8.4-10.2); CARBON DIOXIDE 23 mmol/L (22-30); CHLORIDE 106 mmol/L (98-107); GLUCOSE 84 mg/dL (75-110); POTASSIUM 4.8 mmol/L (3.6-5.0); SODIUM 138.6 mmol/L (137-145); TOTAL PROTEIN 6.1 g/dL (6.3-8.2)
[2018-01-02 16:15] LABS: ABSOLUTE LYMPHOCYTES# (MANUAL) 2.1 10^3/uL (0.5-4.7); ABSOLUTE MONOCYTES # (MANUAL) 1.1 10^3/uL (0.1-1.4); ABSOLUTE NEUTROPHILS# (MANUAL) 3.2 10^3/uL (1.7-8.2); BASOPHILS % (MANUAL) 0 % (0-2); EOSINOPHILS % (MANUAL) 3 % (0-6); LYMPHOCYTES % (MANUAL) 32 % (13-45); MONOCYTES % (MANUAL) 17 % (3-13); SEGMENTED NEUTROPHILS % (MAN) 48 % (42-78); TOTAL CELLS COUNTED 100
[2018-01-02 16:16] LABS: ANISOCYTOSIS SLIGHT; PLATELET COMMENT ADEQUATE; TOXIC GRANULATION SLIGHT
[2018-01-02] MEDS ORDERED: DEXTROSE 5%-LACTATED RINGERS 1,000 ML IV PRN (16:27)
[2018-01-02] MEDS ORDERED: ACETAMINOPHEN 325 MG TABLET PO PRN (16:27)
[2018-01-02] MEDS ORDERED: ONDANSETRON HCL INJ/PF 4 MG/2 ML SDV IV PRN (16:27)
[2018-01-02] MEDS ORDERED: CEFTRIAXONE SODIUM 1,000 MG in NORMAL SALINE 50 ML IV ONE (16:30)
[2018-01-02] MEDS ORDERED: METHYLPREDNISOLONE INJ 40 MG/1 ML SDV IV SCH (16:45)
--- NOTE | 2018-01-02 16:48 | PDOC H&P ---
History of Present Illness Admission Date/PCP: 01/02/2018 LINDSAY RICK MD Patient complains of: Shortness of breath History of Present Illness: SACHIN GEIGER is a 72 year old female sent to the hospital with complaint of shortness of breath. Patient was at [facility] where she was diagnosed with flu a and was discharged from their facility. Family reports that she was discharged due to bed not being available and physician feeling that patient would be stable for home. Received call from the emergency department for admission to hospital. My encounter patient states that she has been feeling weak fatigued and febrile for only 1 day. Patient states that she went to [place] for a couple of weeks and then returned home. Daughter is present with her who states that patient's symptoms began yesterday when she went to [place] and was discharged this morning from the ER. Patient reports that she is also had sore throat and poor appetite. Patient had been placed in droplet isolation due to influenza A. ER and also given patient Rocephin and Zithromax. Past Medical History Cardiac Medical History: Reports: Myocardial Infarction, Hyperlipidema, Hypertension Denies: Coronary Artery Disease, Heart Murmur Pulmonary Medical History: Reports: Chronic Obstructive Pulmonary Disease (COPD) , Pneumonia - MULTIPLE TIMES Denies: Asthma, Bronchitis, Respiratory Failure, Sleep Apnea, Tuberculosis Neurological Medical History: Denies: Seizures Malignancy Medical History: Denies: Lung Cancer Musculoskeltal Medical History: Reports: Arthritis Psychiatric Medical History: Reports: Dementia - Alzheimer's, Depression Hematology: Denies: Anemia Past Surgical History Past Surgical History: Reports: Cardiac Catheterization - Stent x2 Denies: Pacemaker Social History Information Source: Patient, Parent Lives with: Alone Smoking Status: Former Smoker Frequency of Alcohol Use: None Hx Recreational Drug Use: No Hx Prescription Drug Abuse: No - Advance Directive Resuscitation Status: Full Code Family History Family History: CVA, DM Parental Family History Reviewed: Yes Children Family History Reviewed: Yes Sibling(s) Family History Reviewed.: Yes Medication/Allergy Home Medications: Albuterol Sulfate [Ventolin Hfa] 2 puff IH Q4HP PRN 02/06/17 Aspirin [Aspirin 81 mg Chewable Tablet] 81 mg PO DAILY 02/06/17 Pravastatin Sodium [Pravachol] 20 mg PO DAILY 02/06/17 Ranitidine HCl [Zantac 150 mg Tablet] 150 mg PO DAILY 02/06/17 Tiotropium Roy [Spiriva Handihaler 5 Cap/Kit (18 Mcg/Cap)] 1 cap IH DAILY Budesonide/Formoterol Fumarate [Symbicort HFA 80-4.5 mcg Inhaler 6.9 gm] 2 puff IH BID 02/08/17 Acetaminophen [Tylenol 325 mg Tablet] 650 mg PO Q4HP PRN tablet 02/14/17 Atenolol [Tenormin 50 mg Tablet] 25 mg PO DAILY tablet 02/14/17 Citalopram Hydrobromide [Celexa 20 mg Tablet] 10 mg PO DAILY tablet 02/14/17 Diltiazem HCl [Cardizem Cd 120 mg Capsule] 120 mg PO BID cap.sr.24h 02/14/17 Levofloxacin [Levaquin 750 mg Tablet] 750 mg PO Q2D@1000 #7 tablet 02/14/17 Ipratropium/Albuterol Sulfate [Duoneb 3 ml Ampul] 3 ml [facility] [id number] #30 vial.neb 02/22/17 Risperidone [Risperdal] 0.5 mg PO BID #60 tablet 02/22/17 Acetaminophen with Codeine [Tylenol #3 Tablet] 1 each PO Q6HP PRN #30 tablet 08/12 Allergies/Adverse Reactions: No Known Allergies Allergy (Unverified 06/26/17 09:48) Review of Systems Constitutional: PRESENT: fatigue, fever(s), weakness Eyes: ABSENT: visual disturbances Ears: ABSENT: hearing changes Cardiovascular: ABSENT: chest pain, dyspnea on exertion, edema, orthropnea, palpitations Respiratory: PRESENT: cough Gastrointestinal: ABSENT: abdominal pain, constipation, diarrhea, hematemesis, hematochezia, nausea, vomiting Genitourinary: ABSENT: dysuria, hematuria Musculoskeletal: ABSENT: joint swelling Integumentary: ABSENT: rash, wounds Neurological: ABSENT: abnormal gait, abnormal speech, confusion, dizziness, focal weakness, syncope Psychiatric: ABSENT: anxiety, depression, homidical ideation, suicidal ideation Endocrine: ABSENT: cold intolerance, heat intolerance, polydipsia, polyuria Hematologic/Lymphatic: ABSENT: easy bleeding, easy bruising Physical Exam Vital Signs: Temp Pulse Resp BP Pulse Ox 98.8 F 78 16 136/81 H 97 01/02/18 13:20 01/02/18 13:20 01/02/18 13:20 01/02/18 13:20 01/02/18 13:20 Intake & Output 01/01/18 01/02/18 01/03/18 06:59 06:59 06:59 Weight 67 kg General appearance: PRESENT: mild distress, well-developed, well-nourished Head exam: PRESENT: atraumatic, normocephalic Eye exam: PRESENT: conjunctiva pink, EOMI. ABSENT: scleral icterus Ear exam: PRESENT: normal external ear exam Mouth exam: PRESENT: moist, tongue midline Neck exam: ABSENT: carotid bruit, JVD, lymphadenopathy, thyromegaly Respiratory exam: PRESENT: accessory muscle use, prolonged expiratory phas, wheezes Cardiovascular exam: PRESENT: RRR. ABSENT: diastolic murmur, rubs, systolic murmur Pulses: PRESENT: normal dorsalis pedis pul Vascular exam: PRESENT: normal capillary refill GI/Abdominal exam: PRESENT: normal bowel sounds, soft. ABSENT: distended, guarding, mass, organolmegaly, rebound, tenderness Rectal exam: PRESENT: deferred Extremities exam: PRESENT: full ROM. ABSENT: calf tenderness, clubbing, pedal edema Musculoskeletal exam: PRESENT: full ROM Neurological exam: PRESENT: alert, awake, oriented to person, oriented to place , oriented to time, oriented to situation, CN II-XII grossly intact. ABSENT: motor sensory deficit Psychiatric exam: PRESENT: appropriate affect, normal mood. ABSENT: homicidal ideation, suicidal ideation Skin exam: PRESENT: dry, intact, warm. ABSENT: cyanosis, rash Results Laboratory Results: 01/02/18 15:28 01/02/18 15:28 01/02/18 01/02/18 01/02/18 15:28 15:28 15:28 WBC 6.6 RBC 4.11 Hgb 11.9 L Hct 35.8 L MCV 87 MCH 29.0 MCHC 33.3 RDW 14.6 H Plt Count 178 Seg Neutrophils % Not Reportable Lymphocytes % Not Reportable Monocytes % Not Reportable Eosinophils % Not Reportable Basophils % Not Reportable Absolute Neutrophils Not Reportable Absolute Lymphocytes Not Reportable Absolute Monocytes Not Reportable Absolute Eosinophils Not Reportable Absolute Basophils Not Reportable VBG pH VBG pCO2 VBG HCO3 VBG Base Excess Sodium 138.6 Potassium 4.8 Chloride 106 Carbon Dioxide 23 Anion Gap 10 BUN 14 Creatinine 0.94 Est GFR ( Amer) > 60 Est GFR (Non-Af Amer) 58 L Glucose 84 Lactic Acid 0.6 L Calcium 10.6 H Total Bilirubin 0.4 AST 24 ALT 18 Alkaline Phosphatase 81 Total Protein 6.1 L Albumin 3.9 01/02/18 15:28 WBC RBC Hgb Hct MCV MCH MCHC RDW Plt Count Seg Neutrophils % Lymphocytes % Monocytes % Eosinophils % Basophils % Absolute Neutrophils Absolute Lymphocytes Absolute Monocytes Absolute Eosinophils Absolute Basophils VBG pH 7.40 VBG pCO2 42.8 VBG HCO3 25.6 VBG Base Excess 0.5 Sodium Potassium Chloride Carbon Dioxide Anion Gap BUN Creatinine Est GFR ( Amer) Est GFR (Non-Af Amer) Glucose Lactic Acid Calcium Total Bilirubin AST ALT Alkaline Phosphatase Total Protein Albumin Impressions: Chest X-Ray 01/02/18 13:51 IMPRESSION: NO ACUTE RADIOGRAPHIC FINDING IN THE CHEST. Assessment & Plan - Diagnosis (1) Influenza A Is this a current diagnosis for this admission?: Yes Plan: Placed on Tamiflu (2) COPD with acute exacerbation Is this a current diagnosis for this admission?: Yes Plan: In setting of influenza a: Patient has history of tobacco abuse for approximately 20-[address] patient on Solu-Medrol, breathing treatments, and Levaquin. (3) Breast CA Qualifiers: Patient sex: female Laterality: left Is this a current diagnosis for this admission?: Yes Plan: Status post meniscectomy: Patient's white blood cell count within appropriate range. Will have Dr. Bettie Singh patient since he is her primary doctor. (4) Hypercalcemia Is this a current diagnosis for this admission?: Yes Plan: Likely secondary to dehydration: We will give IV fluids and check calcium in a.m. possibly be due to immobility as well. If calcium does not improve will do hypercalcemia workup. (5) Weakness Is this a current diagnosis for this admission?: Yes Plan: Secondary to flu: PT OT (6) Pneumonia Qualifiers: Pneumonia type: due to unspecified organism Laterality: left Lung location: lower lobe of lung Qualified Code(s): J18.1 - Lobar pneumonia, unspecified organism Is this a current diagnosis for this admission?: No Plan: Currently chest x-ray does not demonstrate evidence consistent with pneumonia. (7) DVT prophylaxis Is this a current diagnosis for this admission?: Yes Plan: SCDs - Time Time Spent: 30 to 50 Minutes
[2018-01-02 17:14] LABS: APPEARANCE,URINE SLIGHTLY-CLOUDY; BILIRUBIN,URINE NEGATIVE (NEGATIVE); COLOR,URINE YELLOW; GLUCOSE, URINE NEGATIVE (NEGATIVE); KETONES,URINE NEGATIVE (NEGATIVE); LEUKOCYTE ESTERASE,URINE NEGATIVE (NEGATIVE); NITRITE,URINE NEGATIVE (NEGATIVE); PROTEIN,URINE NEGATIVE (NEGATIVE); UROBILINOGEN,URINE NEGATIVE mg/dL (<2.0)
[2018-01-02] MEDS ORDERED: IPRATROPIUM/ALBUTEROL 0.5-2.5 MG/3 ML AMPUL NEB ONE (17:15)
[2018-01-02] MEDS ORDERED: METHYLPREDNISOLONE INJ 125 MG/2 ML SDV IV ONE (18:00)
[2018-01-02] MEDS ORDERED: LEVOFLOXACIN 500 MG/D5W RTU 500 MG/100 ML RTUPB IV SCH (18:00)
[2018-01-02] MEDS: OSELTAMIVIR PHOSPHATE 75 MG CAPSULE PO SCH (19:17)
[2018-01-02] MEDS: IPRATROPIUM/ALBUTEROL 0.5-2.5 MG/3 ML AMPUL NEB SCH (20:33)
[2018-01-03] MEDS: METHYLPREDNISOLONE INJ 125 MG/2 ML SDV IV SCH ×3 (05:26→21:16)
[2018-01-03] MEDS: LANSOPRAZOLE 30 MG TAB.RAP.DR PO SCH (05:26)
[2018-01-03 05:55] LABS: ABSOLUTE LYMPHOCYTES (AUTO) 1.3 10^3/uL (0.5-4.7); ABSOLUTE MONOCYTES (AUTO) 0.1 10^3/uL (0.1-1.4); ABSOLUTE NEUT (AUTO) 1.1 10^3/uL (1.7-8.2); BASOPHILS % (AUTO) 0.7 % (0-2); HEMATOCRIT 34.9 % (36.0-47.0); HEMOGLOBIN 11.6 g/dL (12.0-15.5); LYMPHOCYTES % (AUTO) 52.6 % (13-45); MEAN CORPUSCULAR HEMOGLOBIN 29.1 pg (27.0-33.4); MEAN CORPUSCULAR HGB CONC 33.3 g/dL (32.0-36.0); MEAN CORPUSCULAR VOLUME 87 fl (80-97); PLATELET COUNT 164 10^3/uL (150-450); RED BLOOD COUNT 3.99 10^6/uL (3.72-5.28); RED CELL DISTRIBUTION WIDTH 14.3 % (11.5-14.0); SEGMENTED NEUTROPHILS % (AUTO) 42.7 % (42-78); TOTAL CELLS COUNTED % (AUTO) 100 %
[2018-01-03 06:12] LABS: ALANINE AMINOTRANSFERASE 24 U/L (9-52); ALBUMIN 3.6 g/dL (3.5-5.0); ALKALINE PHOSPHATASE 74 U/L (38-126); ANION GAP 9 (5-19); ASPARTATE AMINO TRANSFERASE 21 U/L (14-36); BILIRUBIN,DIRECT 0.1 mg/dL (0.0-0.4); BILIRUBIN,TOTAL 0.2 mg/dL (0.2-1.3); BLOOD UREA NITROGEN 15 mg/dL (7-20); CALCIUM 10.9 mg/dL (8.4-10.2); CARBON DIOXIDE 24 mmol/L (22-30); CHLORIDE 109 mmol/L (98-107); GLUCOSE 157 mg/dL (75-110); POTASSIUM 4.9 mmol/L (3.6-5.0); SODIUM 141.8 mmol/L (137-145); TOTAL PROTEIN 5.9 g/dL (6.3-8.2)
[2018-01-03 06:35] LABS: WHITE BLOOD COUNT 2.5 10^3/uL (4.0-10.5)
--- NOTE | 2018-01-03 08:04 | PDOC CONSULTATION ---
Consultation Consult Date: 01/03/18 Attending physician:: TIFFANY NIELSON Consult reason:: Influenza, upper respiratory tract infection, concern of pneumonia, stage II breast cancer currently on adjuvant chemotherapy History of Present Illness Admission Date/PCP: 01/02/18 17:23 LINDSAY RICK MD Patient complains of: Cough, fever, congestion, shortness of breath History of Present Illness: 72-year-old female well-known to our oncology clinic with history of stage II breast cancer, HER-2 positive, currently on adjuvant chemotherapy. Initially she was treated with 12 weeks of Taxol and then transition to maintenance Herceptin, she has several more months of that. Now 2 days ago she began experiencing increasing cough, chills, fevers, weakness, she initially went to [facility], in the ER she was noted to have influenza, positive rapid flu test, and also noted per family there to have evidence of pneumonia, treated both with Tamiflu as well as a dose of Rocephin, and then discharged home because there is no beds there. However, her daughter was very concerned because she was unable to get up and move around, she was very weak, and was concerned she could not be cared for at home appropriately. She called her office, and we had a reevaluated in the ER. She was felt to be appropriate for admission, and is currently on Tamiflu as well as Levaquin. She feels better today. Of note, while in the ED it was found that her port had infiltration around the site, and needs to be investigated today. Past Medical History Cardiac Medical History: Reports: Myocardial Infarction, Hyperlipidema, Hypertension Denies: Coronary Artery Disease, Heart Murmur Pulmonary Medical History: Reports: Chronic Obstructive Pulmonary Disease (COPD) , Pneumonia - MULTIPLE TIMES Denies: Asthma, Bronchitis, Respiratory Failure, Sleep Apnea, Tuberculosis Neurological Medical History: Denies: Seizures Malignancy Medical History: Reports: Breast Cancer Denies: Lung Cancer Musculoskeltal Medical History: Reports: Arthritis Psychiatric Medical History: Reports: Dementia - Alzheimer's, Depression Hematology: Denies: Anemia Past Surgical History Past Surgical History: Reports: Cardiac Catheterization - Stent x2, Other - Mastectomy, port placement Denies: Pacemaker Social History Information Source: Patient Lives with: Alone Smoking Status: Former Smoker Frequency of Alcohol Use: None Hx Recreational Drug Use: No Drugs: None Hx Prescription Drug Abuse: No - Advance Directive Resuscitation Status: Full Code Family History Family History: CVA, DM Parental Family History Reviewed: Yes Children Family History Reviewed: Yes Sibling(s) Family History Reviewed.: Yes Medication/Allergy Home Medications: Albuterol Sulfate [Ventolin Hfa] 1 puff IH Q4HP PRN 01/02/18 Aspirin [Adult Low Dose Aspirin EC] 81 mg PO DAILY 01/02/18 Atenolol [Tenormin 50 mg Tablet] 50 mg PO DAILY 01/02/18 Budesonide/Formoterol Fumarate [Symbicort HFA 80-4.5 mcg Inhaler 6.9 gm] 2 puff IH BID 01/02/18 Citalopram Hydrobromide [Celexa] 10 mg PO DAILY 01/02/18 Lisinopril [Zestril] 10 mg PO DAILYP PRN 01/02/18 Potassium Chloride [K-Tab ER] 8 meq PO DAILY 01/02/18 Pravastatin Sodium [Pravachol] 20 mg PO DAILY 01/02/18 Ranitidine HCl [Zantac 150 mg Tablet] 150 mg PO DAILY 01/02/18 Tiotropium [place] [Spiriva] 18 mcg IH DAILY 01/02/18 Allergies/Adverse Reactions: No Known Allergies Allergy (Unverified 06/26/17 09:48) Review of Systems Constitutional: PRESENT: anorexia, chills, fatigue, fever(s), weakness Nose, Mouth, and Throat: PRESENT: sore throat Cardiovascular: PRESENT: dyspnea on exertion Gastrointestinal: ABSENT: abdominal pain, constipation, diarrhea, hematemesis, hematochezia, nausea, vomiting Musculoskeletal: PRESENT: muscle weakness Neurological: PRESENT: weakness Endocrine: PRESENT: cold intolerance Physical Exam Vital Signs: Temp Pulse Resp BP Pulse Ox 98.1 F 71 17 129/64 H 100 01/03/18 04:00 01/03/18 04:00 01/03/18 04:00 01/03/18 04:00 01/03/18 04:00 Intake & Output 01/02/18 01/03/18 01/04/18 06:59 06:59 06:59 Intake Total 700 Output Total 200 Balance 500 Weight 71.4 kg General appearance: PRESENT: no acute distress Head exam: PRESENT: atraumatic Mouth exam: PRESENT: dry mucosa Neck exam: ABSENT: carotid bruit, JVD, lymphadenopathy, thyromegaly Respiratory exam: PRESENT: crackles, rhonchi, tachypnea Cardiovascular exam: PRESENT: RRR. ABSENT: diastolic murmur, rubs, systolic murmur GI/Abdominal exam: PRESENT: normal bowel sounds, soft. ABSENT: distended, guarding, mass, organolmegaly, rebound, tenderness Rectal exam: PRESENT: deferred Musculoskeletal exam: PRESENT: ambulatory Neurological exam: PRESENT: alert, awake, oriented to person, oriented to place , oriented to time, oriented to situation. ABSENT: motor sensory deficit Skin exam: PRESENT: dry Results Laboratory Results: 01/03/18 04:38 01/03/18 04:38 01/03/18 01/03/18 04:38 04:38 WBC 2.5 L D RBC 3.99 Hgb 11.6 L Hct 34.9 L MCV 87 MCH 29.1 MCHC 33.3 RDW 14.3 H Plt Count 164 Seg Neutrophils % 42.7 Lymphocytes % 52.6 H Monocytes % 4.0 Eosinophils % 0.0 Basophils % 0.7 Absolute Neutrophils 1.1 L Absolute Lymphocytes 1.3 Absolute Monocytes 0.1 Absolute Eosinophils 0.0 Absolute Basophils 0.0 Sodium 141.8 Potassium 4.9 Chloride 109 H Carbon Dioxide 24 Anion Gap 9 BUN 15 Creatinine 0.87 Est GFR ( Amer) > 60 Est GFR (Non-Af Amer) > 60 Glucose 157 H Calcium 10.9 H Total Bilirubin 0.2 AST 21 ALT 24 Alkaline Phosphatase 74 Total Protein 5.9 L Albumin 3.6 Impressions: Chest X-Ray 01/02/18 13:51 IMPRESSION: NO ACUTE RADIOGRAPHIC FINDING IN THE CHEST. Assessment & Plan - Diagnosis (1) Influenza A Is this a current diagnosis for this admission?: Yes Plan: Given her comorbidities as well as recent diagnosis of breast cancer and adjuvant chemotherapy, she does have a weakened immune status, so I do believe she is appropriate for admission for hydration and supportive care for influenza. Continue with Tamiflu. (2) Pneumonia Qualifiers: Pneumonia type: due to unspecified organism Laterality: left Lung location: lower lobe of lung Qualified Code(s): J18.1 - Lobar pneumonia, unspecified organism Is this a current diagnosis for this admission?: No Plan: Continue with IV antibiotics, there may be a overlying bacterial infection, although chest x-ray was negative, continue with current therapy. (3) Breast CA Qualifiers: Breast location: upper outer quadrant of breast Estrogen receptor status: negative Patient sex: female Laterality: left Qualified Code(s): C50.412 - Malignant neoplasm of upper-outer quadrant of left female breast; Z17.1 - Estrogen receptor negative status [ER-]; Z17.1 - Estrogen receptor negative status [ER-] Is this a current diagnosis for this admission?: Yes Plan: HER-2 positive breast cancer, continue with Herceptin as outpatient but treatment on hold until patient improves. Port site apparently is infiltrated, I have asked for that port to be reaccessed, if the port does not seem to flush appropriately and draw appropriately, we will need to do a port study. - Time Time Spent: Greater than 70 Minutes - Inpatient Certification Based on my medical assessment, after consideration of the patient's comorbidities, presenting symptoms, or acuity I expect that the services needed warrant INPATIENT care.: Yes I certify that my determination is in accordance with my understanding of Medicare's requirements for reasonable and necessary INPATIENT services [42 CFR 412.3e].: Yes Medical Necessity: Failure to Improve With Outpatient Therapy, Need For IV Fluids, Need for IV Antibiotics, Risk of Complication if Not Cared For in Hospital
[2018-01-03] MEDS: IPRATROPIUM/ALBUTEROL 0.5-2.5 MG/3 ML AMPUL NEB SCH ×4 (09:10→20:46)
--- NOTE | 2018-01-03 16:19 | PDOC PROGRESS REPORT ---
Subjective Progress Note for:: 01/03/18 Subjective:: She states that she is feeling better today. Reports the patient states that she has an allergy to IV steroids. Reason For Visit: INFLUENZA A Physical Exam Vital Signs: Temp Pulse Resp BP Pulse Ox 97.6 F 114 H 16 168/68 H 96 01/03/18 11:59 01/03/18 14:00 01/03/18 12:23 01/03/18 11:59 01/03/18 12:23 Intake & Output 01/02/18 01/03/18 01/04/18 06:59 06:59 06:59 Intake Total 700 320 Output Total 200 Balance 500 320 Weight 71.4 kg General appearance: PRESENT: no acute distress, well-developed, well-nourished Head exam: PRESENT: atraumatic, normocephalic Eye exam: PRESENT: conjunctiva pink, EOMI. ABSENT: scleral icterus Ear exam: PRESENT: normal external ear exam Mouth exam: PRESENT: moist, tongue midline Neck exam: ABSENT: carotid bruit, JVD, lymphadenopathy, thyromegaly Respiratory exam: PRESENT: clear to auscultation nicolas. ABSENT: rales, rhonchi, wheezes Cardiovascular exam: PRESENT: RRR. ABSENT: diastolic murmur, rubs, systolic murmur Pulses: PRESENT: normal dorsalis pedis pul Vascular exam: PRESENT: normal capillary refill GI/Abdominal exam: PRESENT: normal bowel sounds, soft. ABSENT: distended, guarding, mass, organolmegaly, rebound, tenderness Rectal exam: PRESENT: deferred Extremities exam: PRESENT: full ROM. ABSENT: calf tenderness, clubbing, pedal edema Neurological exam: PRESENT: alert, awake, oriented to person, oriented to place , oriented to time, oriented to situation, CN II-XII grossly intact. ABSENT: motor sensory deficit Psychiatric exam: PRESENT: appropriate affect, normal mood. ABSENT: homicidal ideation, suicidal ideation Skin exam: PRESENT: dry, intact, warm. ABSENT: cyanosis, rash Results Laboratory Results: 01/03/18 04:38 01/03/18 04:38 01/03/18 01/03/18 04:38 04:38 WBC 2.5 L D RBC 3.99 Hgb 11.6 L Hct 34.9 L MCV 87 MCH 29.1 MCHC 33.3 RDW 14.3 H Plt Count 164 Seg Neutrophils % 42.7 Lymphocytes % 52.6 H Monocytes % 4.0 Eosinophils % 0.0 Basophils % 0.7 Absolute Neutrophils 1.1 L Absolute Lymphocytes 1.3 Absolute Monocytes 0.1 Absolute Eosinophils 0.0 Absolute Basophils 0.0 Sodium 141.8 Potassium 4.9 Chloride 109 H Carbon Dioxide 24 Anion Gap 9 BUN 15 Creatinine 0.87 Est GFR ( Amer) > 60 Est GFR (Non-Af Amer) > 60 Glucose 157 H Calcium 10.9 H Total Bilirubin 0.2 AST 21 ALT 24 Alkaline Phosphatase 74 Total Protein 5.9 L Albumin 3.6 Impressions: Chest X-Ray 01/02/18 13:51 IMPRESSION: NO ACUTE RADIOGRAPHIC FINDING IN THE CHEST. Assessment & Plan - Diagnosis (1) Leukopenia Is this a current diagnosis for this admission?: Yes Plan: We will continue to monitor. Will discontinue Levaquin. (2) Influenza A Is this a current diagnosis for this admission?: Yes Plan: Placed on Tamiflu (3) COPD with acute exacerbation Is this a current diagnosis for this admission?: Yes Plan: In setting of influenza a: Patient has history of tobacco abuse for approximately 20-[address] patient on Solu-Medrol and breathing treatments. Will continue Zosyn. (4) Breast CA Qualifiers: Breast location: upper outer quadrant of breast Estrogen receptor status: negative Patient sex: female Laterality: left Qualified Code(s): C50.412 - Malignant neoplasm of upper-outer quadrant of left female breast; Z17.1 - Estrogen receptor negative status [ER-]; Z17.1 - Estrogen receptor negative status [ER-] Is this a current diagnosis for this admission?: Yes Plan: Status post Mastectomy: Patient's white blood cell count within appropriate range. (5) Hypercalcemia Is this a current diagnosis for this admission?: Yes Plan: Likely secondary to dehydration:Will continue IVFs. (6) Weakness Is this a current diagnosis for this admission?: Yes Plan: Secondary to flu: PT OT (7) Pneumonia Qualifiers: Pneumonia type: due to unspecified organism Laterality: left Lung location: lower lobe of lung Qualified Code(s): J18.1 - Lobar pneumonia, unspecified organism Is this a current diagnosis for this admission?: No Plan: Currently chest x-ray does not demonstrate evidence consistent with pneumonia. Will continue Zosyn. (8) DVT prophylaxis Is this a current diagnosis for this admission?: Yes Plan: SCDs - Time Time Spent with patient: 15-24 minutes
[2018-01-03] MEDS: OSELTAMIVIR PHOSPHATE 75 MG CAPSULE PO SCH (17:21)
[2018-01-03] MEDS: PIPERACILLIN SODIUM/TAZOBACTAM 3.375 GM in NORMAL SALINE 100 ML IV SCH ×2 (17:58→23:49)
[2018-01-04] MEDS: LANSOPRAZOLE 30 MG TAB.RAP.DR PO SCH (05:03)
[2018-01-04] MEDS: METHYLPREDNISOLONE INJ 125 MG/2 ML SDV IV SCH ×2 (05:03→13:34)
[2018-01-04] MEDS: PIPERACILLIN SODIUM/TAZOBACTAM 3.375 GM in NORMAL SALINE 100 ML IV SCH ×2 (05:04→11:34)
[2018-01-04] MEDS: IPRATROPIUM/ALBUTEROL 0.5-2.5 MG/3 ML AMPUL NEB SCH ×3 (08:07→16:47)
[2018-01-04] MEDS ORDERED: LISINOPRIL 10 MG TABLET PO PRN (08:33)
[2018-01-04] MEDS ORDERED: ALBUTEROL SULFATE HFA (90 MCG/PUFF) 8 GM MDI (1 MDI/ER DISP) IH PRN (08:33)
--- NOTE | 2018-01-04 08:45 | PDOC PROGRESS REPORT ---
Subjective Progress Note for:: 01/04/18 Subjective:: Apparently patient was confused this morning, she has been on both steroids and had a switch to Zosyn, her daughter notes that whenever she is on steroids she does have some confusion and agitation Reason For Visit: INFLUENZA A Physical Exam Vital Signs: Temp Pulse Resp BP Pulse Ox 98.0 F 200 H 15 119/34 L 95 01/04/18 07:49 01/04/18 07:49 01/04/18 04:00 01/04/18 07:49 01/04/18 07:49 Intake & Output 01/03/18 01/04/18 01/05/18 06:59 06:59 06:59 Intake Total 700 2120 Output Total 200 450 Balance 500 1670 Weight 71.4 kg 76.1 kg General appearance: PRESENT: no acute distress, well-developed, well-nourished Head exam: PRESENT: atraumatic, normocephalic Eye exam: PRESENT: conjunctiva pink, EOMI, PERRLA. ABSENT: scleral icterus Ear exam: PRESENT: normal external ear exam Mouth exam: PRESENT: moist, tongue midline Neck exam: ABSENT: carotid bruit, JVD, lymphadenopathy, thyromegaly Respiratory exam: PRESENT: clear to auscultation nicolas. ABSENT: rales, rhonchi, wheezes Cardiovascular exam: PRESENT: RRR. ABSENT: diastolic murmur, rubs, systolic murmur Pulses: PRESENT: normal dorsalis pedis pul Vascular exam: PRESENT: normal capillary refill GI/Abdominal exam: PRESENT: normal bowel sounds, soft. ABSENT: distended, guarding, mass, organolmegaly, rebound, tenderness Rectal exam: PRESENT: deferred Extremities exam: PRESENT: full ROM. ABSENT: calf tenderness, clubbing, pedal edema Neurological exam: PRESENT: alert, awake, oriented to person, oriented to place , oriented to time, oriented to situation, CN II-XII grossly intact. ABSENT: motor sensory deficit Psychiatric exam: PRESENT: appropriate affect, normal mood. ABSENT: homicidal ideation, suicidal ideation Skin exam: PRESENT: dry, intact, warm. ABSENT: cyanosis, rash Results Laboratory Results: 01/03/18 04:38 01/03/18 04:38 Impressions: Chest X-Ray 01/02/18 13:51 IMPRESSION: NO ACUTE RADIOGRAPHIC FINDING IN THE CHEST. Assessment & Plan - Diagnosis (1) Influenza A Is this a current diagnosis for this admission?: Yes Plan: Continue per hospitalist team, patient is improving (2) Pneumonia Qualifiers: Pneumonia type: due to unspecified organism Laterality: left Lung location: lower lobe of lung Qualified Code(s): J18.1 - Lobar pneumonia, unspecified organism Is this a current diagnosis for this admission?: No Plan: Continue per hospitalist team, we probably can change from Zosyn to Levaquin but would allow that to be decision the hospitalist team will take, I wonder if also steroids can be tapered down. But she probably does have a COPD component , so again would allow hospitalist team to take that decision. (3) Breast CA Qualifiers: Breast location: upper outer quadrant of breast Estrogen receptor status: negative Patient sex: female Laterality: left Qualified Code(s): C50.412 - Malignant neoplasm of upper-outer quadrant of left female breast; Z17.1 - Estrogen receptor negative status [ER-]; Z17.1 - Estrogen receptor negative status [ER-] Is this a current diagnosis for this admission?: Yes Plan: We will continue treatment as an outpatient once she is improved.
[2018-01-04] MEDS ORDERED: ALBUTEROL SULFATE HFA (90 MCG/PUFF) 200 PUFF/8.5 GM MDI IH PRN (09:21)
[2018-01-04] MEDS: OSELTAMIVIR PHOSPHATE 75 MG CAPSULE PO SCH (09:49)
[2018-01-04] MEDS ORDERED: ASPIRIN 81 MG TABLET, ENT COATED PO SCH (10:00)
[2018-01-04] MEDS ORDERED: POTASSIUM CHLORIDE 8 MEQ PO SCH (10:00)
[2018-01-04] MEDS ORDERED: CITALOPRAM HYDROBROMIDE 20 MG TABLET PO SCH (10:00)
[2018-01-04] MEDS ORDERED: TIOTROPIUM BROMIDE DPI 5 CAP/KIT (18 MCG/CAP) IH SCH (10:00)
[2018-01-04] MEDS ORDERED: POTASSIUM CHLORIDE 10 MEQ TABLET.SA PO SCH (10:00)
[2018-01-04] MEDS ORDERED: FAMOTIDINE 20 MG TABLET PO SCH (10:00)
[2018-01-04] MEDS ORDERED: CITALOPRAM HYDROBROMIDE 10 MG PO SCH (10:00)
[2018-01-04] MEDS ORDERED: BUDESONIDE/FORMOTEROL 80-4.5 MCG 60 PUFF/6.9 GM MDI IH SCH (10:00)
[2018-01-04] MEDS ORDERED: ATENOLOL 50 MG TABLET PO SCH (10:00)
[2018-01-04] MEDS ORDERED: (PENDING PHARMACY ID) (Ranitidine Hcl [Zantac 150 Mg Tablet] 150 MG) PO SCH (10:00)
[2018-01-04 12:22] VITALS: BP 190/100
--- NOTE | 2018-01-04 14:39 | PDOC DISCHARGE SUMMARY ---
General - Admit/Disc Date/PCP Admission Date/Primary Care Provider: 01/02/18 17:23 LINDSAY RICK MD Discharge Date: 01/04/18 - Discharge Diagnosis (1) Influenza A Is this a current diagnosis for this admission?: Yes Summary: Continue Tamiflu. (2) COPD with acute exacerbation Is this a current diagnosis for this admission?: Yes Summary: Patient to continue with breathing treatments. No longer wheezing therefore will not place on steroids. (3) Leukopenia Is this a current diagnosis for this admission?: Yes Summary: Being monitored by oncology (4) Breast CA Is this a current diagnosis for this admission?: Yes Summary: Per oncology (5) Hypercalcemia Is this a current diagnosis for this admission?: Yes Summary: Per oncology with cancer (6) Weakness Is this a current diagnosis for this admission?: Yes Summary: Resolved patient able to ambulate around room (7) Pneumonia Is this a current diagnosis for this admission?: No Summary: Ruled out - Additional Information Resuscitation Status: Full Code Discharge Diet: Cardiac Discharge Activity: Activity As Tolerated Prescriptions: Oseltamivir Phosphate [Tamiflu 75 mg Capsule] 75 mg PO BID #8 capsule Home Medications: Albuterol Sulfate [Ventolin Hfa] 1 puff IH Q4HP PRN 01/02/18 Aspirin [Adult Low Dose Aspirin EC] 81 mg PO DAILY 01/02/18 Atenolol [Tenormin 50 mg Tablet] 50 mg PO DAILY 01/02/18 Budesonide/Formoterol Fumarate [Symbicort HFA 80-4.5 mcg Inhaler 6.9 gm] 2 puff IH BID 01/02/18 Citalopram Hydrobromide [Celexa] 10 mg PO DAILY 01/02/18 Lisinopril [Zestril] 10 mg PO DAILYP PRN 01/02/18 Potassium Chloride [K-Tab ER] 8 meq PO DAILY 01/02/18 Pravastatin Sodium [Pravachol] 20 mg PO DAILY 01/02/18 Ranitidine HCl [Zantac 150 mg Tablet] 150 mg PO DAILY 01/02/18 Tiotropium [place] [Spiriva] 18 mcg IH DAILY 01/02/18 Oseltamivir Phosphate [Tamiflu 75 mg Capsule] 75 mg PO BID #8 capsule 01/04/18 History of Present Illness Patient complains of: Shortness of breath and weakness History of Present Illness: SACHIN GEIGER is a 72 year old female sent to the hospital with complaint of shortness of breath. Patient was at [facility] where she was diagnosed with flu a and was discharged from their facility. Family reports that she was discharged due to bed not being available and physician feeling that patient would be stable for home. Received call from the emergency department for admission to hospital. My encounter patient states that she has been feeling weak fatigued and febrile for only 1 day. Patient states that she went to [place] for a couple of weeks and then returned home. Daughter is present with her who states that patient's symptoms began yesterday when she went to [place] and was discharged this morning from the ER. Patient reports that she is also had sore throat and poor appetite. Patient had been placed in droplet isolation due to influenza A. ER and also given patient Rocephin and Zithromax. Hospital Course Hospital Course: Patient is a 72-year-old female that was admitted to our facility due to flu A+ and acute bronchitis. Patient was placed on steroids breathing treatments and steroids. The next following day patient improved drastically from time of admission. Patient was given additional dose of steroids and then discontinued due to patient not wheezing. Patient was covered with antibiotics initially however those were discontinued due to patient not showing evidence of secondary infection with bacterial organism. Patient has been continued on Tamiflu and will be discharged on Tamiflu. Patient is to follow with oncology within 1 week. Physical Exam Vital Signs: Temp Pulse Resp BP Pulse Ox 98 F 72 16 208/105 H 97 01/04/18 12:00 01/04/18 12:11 01/04/18 12:11 01/04/18 12:05 01/04/18 12:11 Intake & Output 01/03/18 01/04/18 01/05/18 06:59 06:59 06:59 Intake Total 700 2120 Output Total 200 450 Balance 500 1670 Weight 71.4 kg 76.1 kg General appearance: PRESENT: no acute distress, well-developed, well-nourished Head exam: PRESENT: normocephalic Eye exam: PRESENT: conjunctiva pink, EOMI. ABSENT: scleral icterus Ear exam: PRESENT: normal external ear exam Mouth exam: PRESENT: moist, tongue midline Neck exam: ABSENT: carotid bruit, JVD, lymphadenopathy, thyromegaly Respiratory exam: PRESENT: clear to auscultation nicolas. ABSENT: rales, rhonchi, wheezes Cardiovascular exam: PRESENT: RRR. ABSENT: diastolic murmur, rubs, systolic murmur Pulses: PRESENT: normal dorsalis pedis pul Vascular exam: PRESENT: normal capillary refill GI/Abdominal exam: PRESENT: normal bowel sounds, soft. ABSENT: distended, guarding, mass, organolmegaly, rebound, tenderness Rectal exam: PRESENT: deferred Extremities exam: PRESENT: full ROM. ABSENT: calf tenderness, clubbing, pedal edema Neurological exam: PRESENT: alert, awake, oriented to person, oriented to place , oriented to time, oriented to situation, CN II-XII grossly intact. ABSENT: motor sensory deficit Psychiatric exam: PRESENT: appropriate affect, normal mood. ABSENT: homicidal ideation, suicidal ideation Skin exam: PRESENT: dry, intact, warm. ABSENT: cyanosis, rash Results Laboratory Results: 01/03/18 04:38 01/03/18 04:38 Impressions: Chest X-Ray 01/02/18 13:51 IMPRESSION: NO ACUTE RADIOGRAPHIC FINDING IN THE CHEST. Plan Time Spent: Greater than 30 Minutes
== END 2018-01-04 17:11 | disposition home or self-care (01) | DRG 194 ==
LOC: ER 13:10 → EH 17:23 → 4N 01-03 00:38
PROVIDERS: ADMIT Emergency Medicine; ATTEND Emergency Medicine
PROC: 3E0F73Z Introduction of Anti-inflammatory into Respiratory Tract, Via Natural or Artificial Opening (ICD-10-PCS; principal; 2018-01-03)
DX: J10.1 Influenza due to other identified influenza virus with other respiratory manifestations (principal); J44.1 Chronic obstructive pulmonary disease with (acute) exacerbation; C50.412 Malignant neoplasm of upper-outer quadrant of left female breast; E83.52 Hypercalcemia; D72.819 Decreased white blood cell count, unspecified; M19.90 Unspecified osteoarthritis, unspecified site; G30.9 Alzheimer's disease, unspecified; E86.0 Dehydration; F02.80 Dementia in other diseases classified elsewhere, unspecified severity, without behavioral disturbance, psychotic disturbance, mood disturbance, and anxiety; F32.9 Major depressive disorder, single episode, unspecified; Z79.82 Long term (current) use of aspirin; Z79.899 Other long term (current) drug therapy; Z83.3 Family history of diabetes mellitus; Z82.3 Family history of stroke; Z17.1 Estrogen receptor negative status [ER-]; Z87.891 Personal history of nicotine dependence
CPT/HCPCS: 36415; 36591; 71045; 80053; 81001; 82803; 83036; 83605; 85025; 87040; 87086; 96365; 96368; 99285; G8978-GP; G8979-GP; G8987-GO; G8988-GO; G8989-GO; J0456; J0696; J1956; J2543; J2930; J3490; J7030; J7620

== ENCOUNTER 2018-01-09 15:32 | Emergency (ER) | payer MEDICARE ==
[2018-01-09] MEDS ORDERED: NORMAL SALINE 1000 ML 1,000 ML IV ONE (17:47)
--- NOTE | 2018-01-09 17:53 | ER Document Report ---
ED GI/ - General Chief Complaint: Vomiting Stated Complaint: VOMITING Time Seen by Provider: 01/09/18 17:34 Mode of Arrival: Medic Information source: Relative, Emergency Med Personnel TRAVEL OUTSIDE OF THE [place] IN LAST 30 DAYS: No - HPI Patient complains to provider of: Diarrhea, Vomiting Onset: Yesterday Timing/Duration: Gradual Quality of pain: No pain Context: Other - BREST Ca, ON CHEMO Tx Associated symptoms: Diarrhea, Nausea, Vomiting. denies: Dysuria Exacerbated by: Food Relieved by: Other - PHENERGAN Similar symptoms previously: Yes Recently seen / treated by doctor: Yes - D/C FROM [facility] (Dx: FLU) 6 DAYS AGO - Related Data Allergies/Adverse Reactions: No Known Allergies Allergy (Verified 01/09/18 15:48) Past Medical History - General Information source: Patient - Social History Smoking Status: Unknown if Ever Smoked Cigarette use (# per day): No Chew tobacco use (# tins/day): No Frequency of alcohol use: None Drug Abuse: None Lives with: Family Family History: CVA, DM Patient has suicidal ideation: No Patient has homicidal ideation: No - Past Medical History Cardiac Medical History: Reports: Hx Heart Attack, Hx Hypercholesterolemia, Hx Hypertension Denies: Hx Coronary Artery Disease, Hx Heart Murmur Pulmonary Medical History: Reports: Hx COPD, Hx Pneumonia - MULTIPLE TIMES Denies: Hx Asthma, Hx Bronchitis, Hx Respiratory Failure, Hx Sleep Apnea, Hx Tuberculosis Neurological Medical History: Denies: Hx Cerebrovascular Accident, Hx Seizures Renal/ Medical History: Denies: Hx Peritoneal Dialysis Malignancy Medical History: Reports: Hx Breast Cancer. Denies: Hx Lung Cancer Musculoskeltal Medical History: Reports Hx Arthritis Psychiatric Medical History: Reports: Hx Dementia - Alzheimer's, Hx Depression, Hx Schizophrenia Past Surgical History: Reports: Hx Cardiac Catheterization - Stent x2, Other - Mastectomy, port placement. Denies: Hx Pacemaker - Immunizations Immunizations up to date: Yes Hx Diphtheria, Pertussis, Tetanus Vaccination: Yes Hx Pneumococcal Vaccination: 08/06/13 Review of Systems - Review of Systems Constitutional: Weakness. denies: Chills, Fever EENT: Throat pain - SLIGHT Cardiovascular: No symptoms reported Respiratory: denies: Cough - HAD COUGH EARLIER, NOW RESOLVED Gastrointestinal: See HPI Genitourinary: No symptoms reported Female Genitourinary: Post menopausal Musculoskeletal: No symptoms reported Skin: No symptoms reported Neurological/Psychological: No symptoms reported Physical Exam - Vital signs Interpretation: Normal - General General appearance: Appears well, Alert In distress: None - HEENT Head: Normocephalic, Atraumatic, Other - [place] Eyes: Normal Conjunctiva: Normal Ears: Normal Nasal: Normal Mouth/Lips: Normal Mucous membranes: Dry - MILD Pharynx: Normal Neck: Normal - Respiratory Respiratory status: No respiratory distress Breath sounds: Normal - Cardiovascular Rhythm: Regular Heart sounds: Normal auscultation Murmur: No - Abdominal Inspection: Normal Distension: No distension Bowel sounds: Hypoactive Tenderness: Nontender - Extremities General upper extremity: Normal inspection General lower extremity: Normal inspection. No: Edema - Neurological Neuro grossly intact: Yes Cognition: Normal Orientation: AAOx4 - Psychological Associated symptoms: Normal affect, Normal mood - Skin Skin Temperature: Warm Skin Moisture: Dry Skin Color: Normal Skin Turgor: Elastic Course - Laboratory Result Diagrams: 01/09/18 19:26 01/09/18 19:26 Laboratory results interpreted by me: 01/09/18 01/09/18 01/09/18 19:26 19:26 21:05 RDW 14.3 H Calcium 10.3 H Total Protein 5.9 L Ur Leukocyte Esterase MODERATE H Discharge - Discharge Clinical Impression: Dehydration Vomiting Qualifiers: Vomiting type: unspecified Vomiting Intractability: non-intractable Nausea presence: with nausea Qualified Code(s): R11.2 - Nausea with vomiting, unspecified Urinary tract infection Qualifiers: Urinary tract infection type: site unspecified Hematuria presence: without hematuria Qualified Code(s): N39.0 - Urinary tract infection, site not specified Condition: Stable Disposition: HOME, SELF-CARE Instructions: Antinausea Medication ([facility]), Intravenous (IV) Fluids ([facility]), Urinary Tract Infection ([facility]), Nitrofurantoin ([facility]), Vomiting ([facility]) Additional Instructions: REST, DRINK PLENTY OF FLUIDS. YOU MAY TAKE ZOFRAN IF NEEDED FOR NAUSEA CONTROL. TAKE MACROBID (NITROFURANTOIN) DIRECTED, BEGINNING TOMORROW (SUNDAY). FOLLOW UP WITH YOUR PRIMARY CARE PROVIDER, [place] TOMORROW FOR APPT. RETURN TO E.R. IF YOU GET WORSE, ANY TIME. Prescriptions: Nitrofurantoin/Nitrofuran Mac [Macrobid 100 mg Capsule] 100 mg PO BID #20 capsule
[2018-01-09 19:53] LABS: ABSOLUTE EOSINOPHILS # (AUTO) 0.1 10^3/uL (0.0-0.6); ABSOLUTE LYMPHOCYTES (AUTO) 1.5 10^3/uL (0.5-4.7); ABSOLUTE MONOCYTES (AUTO) 0.4 10^3/uL (0.1-1.4); ABSOLUTE NEUT (AUTO) 4.9 10^3/uL (1.7-8.2); BASOPHILS % (AUTO) 0.4 % (0-2); EOSINOPHILS % (AUTO) 2.1 % (0-6); HEMATOCRIT 40.6 % (36.0-47.0); HEMOGLOBIN 13.4 g/dL (12.0-15.5); LYMPHOCYTES % (AUTO) 21.7 % (13-45); MEAN CORPUSCULAR HEMOGLOBIN 28.8 pg (27.0-33.4); MEAN CORPUSCULAR VOLUME 87 fl (80-97); MONOCYTES % (AUTO) 5.1 % (3-13); PLATELET COUNT 182 10^3/uL (150-450); RED BLOOD COUNT 4.66 10^6/uL (3.72-5.28); RED CELL DISTRIBUTION WIDTH 14.3 % (11.5-14.0); SEGMENTED NEUTROPHILS % (AUTO) 70.7 % (42-78); TOTAL CELLS COUNTED % (AUTO) 100 %; WHITE BLOOD COUNT 6.9 10^3/uL (4.0-10.5)
[2018-01-09 20:10] LABS: ALANINE AMINOTRANSFERASE 23 U/L (9-52); ALBUMIN 3.6 g/dL (3.5-5.0); ALKALINE PHOSPHATASE 75 U/L (38-126); ANION GAP 5 (5-19); ASPARTATE AMINO TRANSFERASE 21 U/L (14-36); BILIRUBIN,DIRECT 0.3 mg/dL (0.0-0.4); BILIRUBIN,TOTAL 0.7 mg/dL (0.2-1.3); BLOOD UREA NITROGEN 19 mg/dL (7-20); CALCIUM 10.3 mg/dL (8.4-10.2); CARBON DIOXIDE 28 mmol/L (22-30); CHLORIDE 107 mmol/L (98-107); GLUCOSE 87 mg/dL (75-110); POTASSIUM 4.3 mmol/L (3.6-5.0); SODIUM 140.4 mmol/L (137-145); TOTAL PROTEIN 5.9 g/dL (6.3-8.2)
[2018-01-09 21:36] LABS: APPEARANCE,URINE SLIGHTLY-CLOUDY; BILIRUBIN,URINE NEGATIVE (NEGATIVE); COLOR,URINE YELLOW; GLUCOSE, URINE NEGATIVE (NEGATIVE); KETONES,URINE NEGATIVE (NEGATIVE); LEUKOCYTE ESTERASE,URINE MODERATE (NEGATIVE); NITRITE,URINE NEGATIVE (NEGATIVE); PROTEIN,URINE NEGATIVE (NEGATIVE); URINE SPECIFIC GRAVITY 1.026; UROBILINOGEN,URINE NEGATIVE mg/dL (<2.0)
[2018-01-09] MEDS ORDERED: CEFTRIAXONE INJ 1000 MG VIAL IV ONE (22:12)
[2018-01-09] MEDS ORDERED: HEPARIN SOD (PORCINE) 1 UNIT/ML PF 3 ML SYRINGE IV ONE (23:45)
[2018-01-10 00:32] VITALS: BP 158/60
== END 2018-01-10 01:05 | disposition home or self-care (01) ==
LOC: ER 15:32
DX: E86.0 Dehydration (principal); N39.0 Urinary tract infection, site not specified; R11.2 Nausea with vomiting, unspecified; R19.7 Diarrhea, unspecified; I25.2 Old myocardial infarction; E78.00 Pure hypercholesterolemia, unspecified; I10 Essential (primary) hypertension; J44.9 Chronic obstructive pulmonary disease, unspecified; Z85.3 Personal history of malignant neoplasm of breast; G30.9 Alzheimer's disease, unspecified; F02.80 Dementia in other diseases classified elsewhere, unspecified severity, without behavioral disturbance, psychotic disturbance, mood disturbance, and anxiety
CPT/HCPCS: 36591; 99284; 96361; 96374; 36415; 87086; 83690; 85025; 87088; 80053; 81001; 87186; J0696; J7030

== ENCOUNTER → 2018-02-14 | Outpatient (CLI) | payer MEDICARE ==
--- NOTE | 2018-02-14 12:22 | RADIOLOGY REPORT (SQ) ---
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 Images stored on PACS. CONTRAST TYPE AND DOSE: 10 mL Multihance. RENAL FUNCTION: Estimated GFR 49 LIMITATIONS: Motion artifact FINDINGS: ANATOMY: No anomalies. Normal vascular flow voids. Pituitary fossa normal. CSF SPACES: Normal in size and contour. No hemorrhage. CEREBRUM: Sulci and gyri normal in size and contour. Minimal age-appropriate increased deep perivent ricular white matter signal on FLAIR imaging from small vessel disease. . No evidence of hemorrhage, mass, or extraaxial fluid collection. No abnormal enhancement post contrast. POSTERIOR FOSSA: No signal alteration. No hemorrhage. No edema, masses, or mass effect. Internal steven tory canals, cerebellopontine angles, mastoids normal. No enhancing lesions. No abnormal enhancement post contrast. DIFFUSION IMAGING: Negative for acute or subacute infarction. ORBITS: No masses. Globes normal. PARANASAL SINUSES: No fluid levels. Mucosa normal. OTHER: No other significant finding. IMPRESSION: Unremarkable MRI OF THE BRAIN WITHOUT AND WITH INTRAVENOUS GADOLINIUM CONTRAST. EVIDENCE OF ACUTE STROKE: No TECHNICAL DOCUMENTATION: JOB ID: [id number] [employer]- All Rights Reserved Reading location - IP/workstation name: [email or web address]
--- NOTE | 2018-02-14 12:45 | RADIOLOGY REPORT (SQ) ---
EXAM DESCRIPTION: NM MUGA REST COMPLETED DATE/TIME: 02/14/2018 12:34 pm REASON FOR STUDY: BREAST CA (C50.12), S/P CHEMO (Z08) C50.012 MALIGNANT NEOPLASM OF NIPPLE AND AREO LA, LEFT FEMALE Z08 ENCNTR FOR FOLLOW-UP EXAM AFTER TRTMT FOR MALIGNANT NEOP COMPARISON: 10/12/2017 MUGA scan RADIONUCLIDE AND DOSE: 26.4 mCi technetium 99m labeled red blood cells The route of agent administration: Intravenous TECHNIQUE: Following administration of the radionuclide, gated images of the heart are obtained in t hree projections. Left ventricular functional analysis performed. LIMITATIONS: None. FINDINGS: LEFT VENTRICULAR FUNCTION: EJECTION FRACTION: 58%. END-DIASTOLIC VOLUME: 105 mL. END-SYSTOLIC VOLUME: 50 mL. WALL MOTION: No focal wall motion abnormalities. OTHER: No other significant finding. IMPRESSION: NORMAL CARDIAC MUGA STUDY. LEFT VENTRICULAR ejection fraction, 58%. TECHNICAL DOCUMENTATION: JOB ID: [id number] [employer]- All Rights Reserved Reading location - IP/workstation name: [email or web address]
== END ==
LOC: RAD 09:50
PROVIDERS: ATTEND Internal Medicine
DX: Z08 Encounter for follow-up examination after completed treatment for malignant neoplasm (principal); C50.012 Malignant neoplasm of nipple and areola, left female breast
CPT/HCPCS: 82565; 70553; 78472; A9577; A9560; Q9969

== ENCOUNTER 2018-03-08 16:42 | Emergency (ER) | payer MEDICARE ==
--- NOTE | 2018-03-08 17:22 | ER Document Report ---
ED Medical Screen (RME) - General Chief Complaint: Fall Injury Stated Complaint: FALL/HEAD INJURY Time Seen by Provider: 03/08/18 17:14 Notes: 72-year-old female patient lives with her daughter. Patient has frequent falls and lower extremity weakness. Also has lost 15 pounds recently. She is a patient of Dr. Dickinson for breast cancer. She fell last night striking her right forehead and right top of head on the bathtub. There was no loss consciousness, but it is quite painful and swollen. I have greeted and performed a rapid initial assessment of this patient. A comprehensive ED assessment and evaluation of the patient, analysis of test results and completion of the medical decision making process will be conducted by additional ED providers. TRAVEL OUTSIDE OF THE [place] IN LAST 30 DAYS: No - Related Data Allergies/Adverse Reactions: No Known Allergies Allergy (Verified 03/08/18 16:49) Past Medical History - Past Medical History Cardiac Medical History: Reports: Hx Heart Attack, Hx Hypercholesterolemia, Hx Hypertension Denies: Hx Coronary Artery Disease, Hx Heart Murmur Pulmonary Medical History: Reports: Hx COPD, Hx Pneumonia - MULTIPLE TIMES Denies: Hx Asthma, Hx Bronchitis, Hx Respiratory Failure, Hx Sleep Apnea, Hx Tuberculosis Neurological Medical History: Denies: Hx Cerebrovascular Accident, Hx Seizures Renal/ Medical History: Denies: Hx Peritoneal Dialysis Malignancy Medical History: Reports: Hx Breast Cancer. Denies: Hx Lung Cancer Musculoskeltal Medical History: Reports Hx Arthritis Psychiatric Medical History: Reports: Hx Dementia - Alzheimer's, Hx Depression, Hx Schizophrenia Past Surgical History: Reports: Hx Cardiac Catheterization - Stent x2, Other - Mastectomy, port placement. Denies: Hx Pacemaker - Immunizations Immunizations up to date: Yes Hx Diphtheria, Pertussis, Tetanus Vaccination: Yes History of Influenza Vaccine for 08/2017 - 01/2018 Season: Yes Influenza Administration Date for 08/2017 - 01/2018 Season: 08/26/17 Physical Exam - Vital signs Vitals: Temp Pulse Resp BP Pulse Ox 97.8 F 62 14 138/55 H 96 03/08/18 17:00 03/08/18 17:00 03/08/18 17:00 03/08/18 17:00 03/08/18 17:00 Course - Vital Signs Vital signs: Temp Pulse Resp BP Pulse Ox 97.8 F 62 14 138/55 H 96 03/08/18 17:00 03/08/18 17:00 03/08/18 17:00 03/08/18 17:00 03/08/18 17:00
[2018-03-08 17:52] LABS: ABSOLUTE BASOPHILS # (AUTO) 0.1 10^3/uL (0.0-0.2); ABSOLUTE EOSINOPHILS # (AUTO) 0.2 10^3/uL (0.0-0.6); ABSOLUTE LYMPHOCYTES (AUTO) 1.9 10^3/uL (0.5-4.7); ABSOLUTE NEUT (AUTO) 6.3 10^3/uL (1.7-8.2); BASOPHILS % (AUTO) 0.7 % (0-2); EOSINOPHILS % (AUTO) 2.4 % (0-6); HEMATOCRIT 38.8 % (36.0-47.0); LYMPHOCYTES % (AUTO) 20.5 % (13-45); MEAN CORPUSCULAR HEMOGLOBIN 28.7 pg (27.0-33.4); MEAN CORPUSCULAR HGB CONC 33.5 g/dL (32.0-36.0); MEAN CORPUSCULAR VOLUME 86 fl (80-97); MONOCYTES % (AUTO) 10.2 % (3-13); PLATELET COUNT 187 10^3/uL (150-450); RED BLOOD COUNT 4.53 10^6/uL (3.72-5.28); RED CELL DISTRIBUTION WIDTH 15.4 % (11.5-14.0); SEGMENTED NEUTROPHILS % (AUTO) 66.2 % (42-78); TOTAL CELLS COUNTED % (AUTO) 100 %; WHITE BLOOD COUNT 9.5 10^3/uL (4.0-10.5)
--- NOTE | 2018-03-08 18:05 | RADIOLOGY REPORT (SQ) ---
EXAM DESCRIPTION: CT HEAD WITHOUT COMPLETED DATE/TIME: 03/08/2018 5:55 pm REASON FOR STUDY: Fall, hit head on bathtub COMPARISON: June 2011 TECHNIQUE: Axial images acquired through the brain without intravenous contrast. Images reviewed wi th bone, brain and subdural windows. Images stored on PACS. All CT scanners at this facility use dose modulation, iterative reconstruction, and/or weight based d osing when appropriate to reduce radiation dose to as low as reasonably achievable (ALARA). [facility]: Dose Right [facility]: CareDose [facility]: Dose Right [facility]: Teradose 4D [facility]: Smart [employer] RADIATION DOSE: CT Rad equipment meets quality standard of care and radiation dose reduction techniq ues were employed. CTDIvol: 53.2 mGy. DLP: 884 mGy-cm. mGy. LIMITATIONS: None. FINDINGS: VENTRICLES: Prominent. CEREBRUM: No masses. No hemorrhage. No midline shift. Areas of low density in the white matter mos t likely due to chronic micro-vascular ischemic change. No evidence for acute infarction. CEREBELLUM: No masses. No hemorrhage. No alteration of density. No evidence for acute infarction. EXTRAAXIAL SPACES: Mild age-related involutional change. No fluid collections. No masses. ORBITS AND GLOBE: No intra- or extraconal masses. Normal contour of globe without masses. CALVARIUM: No fracture. PARANASAL SINUSES: No fluid or mucosal thickening. SOFT TISSUES: No mass or hematoma. OTHER: No other significant finding. IMPRESSION: MILD CHRONIC CHANGES OF ATROPHY AND MICROVASCULAR ISCHEMIA. NO ACUTE PROCESS. EVIDENCE OF ACUTE STROKE: No TECHNICAL DOCUMENTATION: JOB ID: [id number] Quality ID # [id number]: Final reports with documentation of one or more dose reduction techniques (e.g., Au tomated exposure control, adjustment of the mA and/or kV according to patient size, use of iterative reconstruction technique) 2010 [employer]- All Rights Reserved Reading location - IP/workstation name: [email or web address]
[2018-03-08 18:07] LABS: INTERNATIONAL RATION (INR) 1.02; PROTHROMBIN TIME 13.9 SEC (11.4-15.4)
[2018-03-08 18:08] LABS: ALANINE AMINOTRANSFERASE 29 U/L (9-52); ALKALINE PHOSPHATASE 89 U/L (38-126); ANION GAP 9 (5-19); ASPARTATE AMINO TRANSFERASE 25 U/L (14-36); BILIRUBIN,DIRECT 0.1 mg/dL (0.0-0.4); BILIRUBIN,TOTAL 0.5 mg/dL (0.2-1.3); BLOOD UREA NITROGEN 22 mg/dL (7-20); CALCIUM 10.9 mg/dL (8.4-10.2); CARBON DIOXIDE 30 mmol/L (22-30); CHLORIDE 107 mmol/L (98-107); CREATINE KINASE 64 U/L (30-135); GLUCOSE 104 mg/dL (75-110); POTASSIUM 4.4 mmol/L (3.6-5.0); SODIUM 145.5 mmol/L (137-145); TOTAL PROTEIN 6.6 g/dL (6.3-8.2)
--- NOTE | 2018-03-08 18:09 | RADIOLOGY REPORT (SQ) ---
EXAM DESCRIPTION: CT CERVICAL SPINE WITHOUT COMPLETED DATE/TIME: 03/08/2018 5:57 pm REASON FOR STUDY: Neck pain S/P fall w/ head injury COMPARISON: None. TECHNIQUE: Axial images acquired through the cervical spine without intravenous contrast. Images re viewed with lung, soft tissue and bone windows. Reconstructed coronal and sagittal MPR images review ed. Images stored on PACS. All CT scanners at this facility use dose modulation, iterative reconstruction, and/or weight based d osing when appropriate to reduce radiation dose to as low as reasonably achievable (ALARA). [facility]: Dose Right [facility]: CareDose [facility]: Dose Right [facility]: Teradose 4D [facility]: Smart [employer] RADIATION DOSE: CT Rad equipment meets quality standard of care and radiation dose reduction techniq ues were employed. CTDIvol: 13.0 mGy. DLP: 242 mGy-cm. mGy. LIMITATIONS: None. FINDINGS: ALIGNMENT: Anatomic. MINERALIZATION: Normal. VERTEBRAL BODIES: There is mild compression of the C6 vertebra which is age indeterminate. Clinical correlation is recommended. No other vertebral compressions are identified DISCS: No significant disc disease. FACETS, LATERAL MASSES, POSTERIOR ELEMENTS: No fractures. No dislocation. No acute findings. HARDWARE: None in the spine. VISUALIZED RIBS: No fractures. LUNG APICES AND SOFT TISSUES: No significant or acute findings. OTHER: No other significant finding. IMPRESSION: There is mild compression of the C6 vertebra which is age indeterminate. No other verte bral compressions are identified. Other findings as noted above TECHNICAL DOCUMENTATION: JOB ID: [id number] Quality ID # [id number]: Final reports with documentation of one or more dose reduction techniques (e.g., Au tomated exposure control, adjustment of the mA and/or kV according to patient size, use of iterative reconstruction technique) 2010 [employer]- All Rights Reserved Reading location - IP/workstation name: [email or web address]
--- NOTE | 2018-03-08 19:20 | EKG REPORT ---
SEVERITY:- ABNORMAL ECG - SINUS RHYTHM ABNRM R PROG, CONSIDER ASMI OR LEAD PLACEMENT : Confirmed by: Manuel Brooks MD 08-Mar-2018 19:18:52
--- NOTE | 2018-03-08 19:26 | ER Document Report ---
ED General - General Chief Complaint: Fall Injury Stated Complaint: FALL/HEAD INJURY Time Seen by Provider: 03/08/18 17:14 Notes: Patient is a 72-year-old female with a past medical history of breast cancer, hypertension, chronic deconditioning with chronic gait instability who presents after a fall. The patient had a mechanical fall today in which she fell striking the right side of her head. She did not have a loss of consciousness, no vomiting, weakness or numbness since the fall. Her daughter at the bedside reports that the patient is falling almost daily at this time secondary to chronic gait instability. They have recently started doing home physical therapy to try to correct this and get assistive walking devices to prevent further falls. The patient denies any neck pain, weakness, numbness or confusion. She does note a dull, constant, throbbing pain to her right temporoparietal scalp. Nothing improves or worsens this pain. Does not take any form of anticoagulation. She has not seen her primary care doctor regarding today's concerns. TRAVEL OUTSIDE OF THE [place] IN LAST 30 DAYS: No - Related Data Allergies/Adverse Reactions: No Known Allergies Allergy (Verified 03/08/18 16:49) Past Medical History - General Information source: Patient, Relative - Social History Smoking Status: Former Smoker Frequency of alcohol use: None Drug Abuse: None Lives with: Family Family History: CVA, DM Patient has suicidal ideation: No Patient has homicidal ideation: No - Past Medical History Cardiac Medical History: Reports: Hx Heart Attack, Hx Hypercholesterolemia, Hx Hypertension Denies: Hx Coronary Artery Disease, Hx Heart Murmur Pulmonary Medical History: Reports: Hx COPD, Hx Pneumonia - MULTIPLE TIMES Denies: Hx Asthma, Hx Bronchitis, Hx Respiratory Failure, Hx Sleep Apnea, Hx Tuberculosis Neurological Medical History: Denies: Hx Cerebrovascular Accident, Hx Seizures Renal/ Medical History: Denies: Hx Peritoneal Dialysis Malignancy Medical History: Reports: Hx Breast Cancer. Denies: Hx Lung Cancer Musculoskeltal Medical History: Reports Hx Arthritis Psychiatric Medical History: Reports: Hx Dementia - Alzheimer's, Hx Depression, Hx Schizophrenia Past Surgical History: Reports: Hx Breast Surgery - left mastectomy, Hx Cardiac Catheterization - Stent x2, Other - Mastectomy, port placement. Denies: Hx Pacemaker - Immunizations Immunizations up to date: Yes Hx Diphtheria, Pertussis, Tetanus Vaccination: Yes Hx Pneumococcal Vaccination: 08/06/13 Review of Systems - Review of Systems Notes: Constitutional: Negative for fever. Eyes: Negative for visual changes. ENT: Negative for facial injury Cardiovascular: Negative for chest injury. Respiratory: Negative for shortness of breath. Gastrointestinal: Negative for abdominal injury. Genitourinary: Negative for genital injury Musculoskeletal: Negative for back injury. Skin: Positive for laceration/abrasions. Neurological: Positive for head injury. Physical Exam - Vital signs Vitals: Temp Pulse Resp BP Pulse Ox 97.8 F 62 14 138/55 H 96 03/08/18 17:00 03/08/18 17:00 03/08/18 17:00 03/08/18 17:00 03/08/18 17:00 Interpretation: Normal Notes: PHYSICAL EXAMINATION: GENERAL: Well-appearing, no acute distress. HEAD: Atraumatic, normocephalic. EYES: Pupils equal round and reactive to light, extraocular movements intact, sclera anicteric, conjunctiva are normal. ENT: nares patent, no oral pharyngeal trauma. No hemotympanum, no Vila's sign , no raccoon eyes. NECK: No midline cervical spine tenderness. Patient able to move their head to 45 bilaterally without any discomfort. LUNGS: Breath sounds clear to auscultation bilaterally and equal. No wheezes rales or rhonchi. HEART: Regular rate and rhythm without murmurs. CHEST WALL: No ecchymosis over the chest wall. ABDOMEN: Soft, nontender, normoactive bowel sounds. No guarding, no rebound. No seatbelt sign. EXTREMITIES: Normal range of motion, no pitting or edema. No long bone deformities. BACK: No midline spinal tenderness, step-offs, or deformities. NEUROLOGICAL: Face symmetric. Tongue protrudes midline. Extraocular motions intact. Pupils are 2 mm and equally reactive. Normal speech. 5 out of 5 strength in both the distal and proximal upper and lower extremities bilaterally. Sensation is grossly intact throughout. Finger to nose testing normal. Pronator drift normal. PSYCH: Normal mood, normal affect. SKIN: Warm, Dry, normal turgor, multiple areas of ecchymosis over the bilateral upper extremities, bilateral lower extremities, and a small hematoma to the right temporal parietal scalp Course - Re-evaluation Re-evalutation: 03/08/18 19:23 Presentation of a well appearing elderly patient in no acute distress, vitals within normal limits after a mechanical fall. Patient denies a syncopal episode as the cause for today's fall. No focal neurologic deficits on exam, no evidence of basilar skull fracture on exam without evidence of hemotympanum, raccoon eyes, or periauricular hematoma. No papilledema. Patient is not on anticoagulation. GCS is 15. No loss of consciousness. No episodes of vomiting. However, based on patient's age a CT of the head has been obtained which is negative for any acute intracranial bleed. Likewise, patient was unable to be clinically cleared due to age by [place] cervical spine criteria. A CT of the cervical spine was also obtained and likewise is negative for any acute fracture. Age indeterminant C6 fracture is noted although I do not believe this is acute as patient denies any neck pain and has no midline tenderness on palpation. No indication for further imaging of the cervical spine. Patient has no focal deformities or limited range of motion in any joint space. Chest and abdominal exam are benign without any focal tenderness, shortness of breath, or bruising over the chest or abdominal wall. Patient has no flank tenderness. There is no obvious findings on trauma exam today and therefore no further imaging or evaluation will be obtained at this time. At this time will discharge with return precautions and follow-up recommendations. Verbal discharge instructions given a the bedside and opportunity for questions given. Medication warnings reviewed. Patient is in agreement with this plan and has verbalized understanding of return precautions and the need for primary care follow-up in the next 24-72 hours. - Vital Signs Vital signs: Temp Pulse Resp BP Pulse Ox 98.3 F 66 20 161/75 H 100 03/08/18 19:39 03/08/18 19:39 03/08/18 19:39 03/08/18 19:39 03/08/18 19:39 - Laboratory Result Diagrams: 03/08/18 17:32 03/08/18 17:32 Laboratory results interpreted by me: 03/08/18 03/08/18 17:32 17:32 RDW 15.4 H Sodium 145.5 H BUN 22 H Calcium 10.9 H - Diagnostic Test Radiology reviewed: Image reviewed, Reports reviewed Radiology results interpreted by me: 03/08/18 19:23 CT head: No acute intracranial bleed Discharge - Discharge Clinical Impression: Gait instability Fall Qualifiers: Encounter type: initial encounter Qualified Code(s): W19.XXXA - Unspecified fall, initial encounter Head trauma Qualifiers: Encounter type: initial encounter Qualified Code(s): S09.90XA - Unspecified injury of head, initial encounter Closed C6 fracture Qualifiers: Encounter type: initial encounter Fracture morphology: unspecified fracture morphology Fracture alignment: nondisplaced Qualified Code(s): S12.501A - Unspecified nondisplaced fracture of sixth cervical vertebra, initial encounter for closed fracture Condition: Stable Disposition: HOME, SELF-CARE Additional Instructions: You have been seen in the Emergency Department (ED) today following a mechanical fall. Your workup today did not reveal any injuries that require you to stay in the hospital. You can expect, though, to be stiff and sore for the next several days. He may take Tylenol 1000 mg every 6 hours as needed for pain. You can apply a hot pack or electric heating pad to the sore areas. You can also use topical "Aspercreme with lidocaine" to sore areas as needed. Please follow up with your primary care doctor as soon as possible regarding today's ED visit and your recent accident. Call your doctor or return to the ED if you develop a sudden or severe headache , confusion, slurred speech, facial droop, weakness or numbness in any arm or leg, extreme fatigue, vomiting more than two times, severe abdominal pain, or other symptoms that concern you.
[2018-03-08 19:46] VITALS: BP 161/75
== END 2018-03-08 19:45 | disposition home or self-care (01) ==
LOC: ER 16:42
DX: S12.501A Unspecified nondisplaced fracture of sixth cervical vertebra, initial encounter for closed fracture (principal); S09.90XA Unspecified injury of head, initial encounter; R26.9 Unspecified abnormalities of gait and mobility; W19.XXXA Unspecified fall, initial encounter; Z85.3 Personal history of malignant neoplasm of breast; I10 Essential (primary) hypertension; Z87.891 Personal history of nicotine dependence; J44.9 Chronic obstructive pulmonary disease, unspecified
CPT/HCPCS: 36415; 70450; 72125; 80053; 82550; 84484; 85025; 85610; 93005; 93010; 99284

== ENCOUNTER → 2020-07-02 | Outpatient (CLI) | payer MEDICARE ==
--- NOTE | 2020-07-02 09:27 | RADIOLOGY REPORT (SQ) ---
EXAM DESCRIPTION: U/S ABDOMEN LIMITED W/O DOP IMAGES COMPLETED DATE/TIME: 07/02/2020 9:07 am REASON FOR STUDY: RUQ PAIN (R10.11) R10.11 RIGHT UPPER QUADRANT PAIN COMPARISON: None. TECHNIQUE: Dynamic and static grayscale images acquired of the abdomen and recorded on PACS. Additio nal selected color Doppler and spectral images recorded. LIMITATIONS: None. FINDINGS: PANCREAS: No masses. Visualized pancreatic duct normal caliber. LIVER: No masses. Echotexture normal. LIVER VASCULATURE: Normal directional flow of the main portal vein and hepatic veins. GALLBLADDER: Gallstones. Wall is thickened measured 4 mm. Negative sonographic Anderson's sign. ULTRASOUND-DETECTED ANDERSON'S SIGN: Negative. INTRAHEPATIC DUCTS AND COMMON DUCT: CBD and intrahepatic ducts normal caliber. No filling defects. INFERIOR VENA CAVA: Not visualized. AORTA: No aneurysm. RIGHT KIDNEY: Normal size. Normal echogenicity. No solid or suspicious masses. No hydronephrosis. No calcifications. PERITONEAL AND RIGHT PLEURAL SPACE: No ascites or effusions. OTHER: No other significant findings. IMPRESSION: Gallstones with gallbladder wall thickening. Negative sonographic Anderson's sign. TECHNICAL DOCUMENTATION: JOB ID: [id number] 2010 [employer]- All Rights Reserved Reading location - IP/workstation name: [email or web address]
--- NOTE | 2020-07-02 15:57 | RADIOLOGY REPORT (SQ) ---
EXAM DESCRIPTION: UGI W/ DOUBLE CONTRAST IMAGES COMPLETED DATE/TIME: 07/02/2020 9:29 am REASON FOR STUDY: RUQ PAIN (R10.11) R10.11 RIGHT UPPER QUADRANT PAIN COMPARISON: None. TECHNIQUE: Under fluoroscopic guidance, patient ingested effervescent granules followed by thick and thin barium. Fluoroscopic spot images and routine radiographic images acquired and stored on PACS. 12 MM BARIUM TABLET GIVEN: Barium tablet passed easily through the esophagus and into the stomach wit hout delay. LIMITATIONS: None. FLUOROSCOPY TIME: FLUORO TIME: 2.1 minutes 14 images saved to PACS. FINDINGS: NEUROMUSCULAR COORDINATION OF SWALLOW: Normal. Trace aspiration seen with thick barium. ESOPHAGEAL MOTILITY: Normal peristalsis. No esophageal spasm. ESOPHAGEAL MUCOSA: Normal mucosa without masses or ulceration. GASTRO-ESOPHAGEAL JUNCTION: No hiatal hernia. Mild gastroesophageal reflux. STOMACH: Normal without masses or ulcerations. GASTRIC OUTLET: No delay in emptying. Normal pylorus. DUODENAL BULB: Normal distention. No spasm or ulceration. DUODENUM: Mucosa normal. No extrinsic masses or malrotation. PROXIMAL SMALL BOWEL: Mucosa normal. No extrinsic masses or malrotation. NON-GI TRACT STRUCTURES: No significant finding. OTHER: No other significant finding. IMPRESSION: MINIMAL GASTROESOPHAGEAL REFLUX. TRACE ASPIRATION. OTHERWISE UNREMARKABLE STUDY. COMMENT: None Quality ID [id number]: Final reports for procedures using fluoroscopy that document radiation exposure marin nubia, or exposure time and number of fluorographic images (if radiation exposure indices are not avail able) TECHNICAL DOCUMENTATION: JOB ID: [id number] 2010 [employer]- All Rights Reserved Reading location - IP/workstation name: [email or web address] [id number]
== END ==
LOC: RAD 08:26
PROVIDERS: ATTEND Internal Medicine Gastroenterology
DX: K80.80 Other cholelithiasis without obstruction (principal); R10.11 Right upper quadrant pain; K21.9 Gastro-esophageal reflux disease without esophagitis
CPT/HCPCS: 74246; 76705